=== PATIENT | female | born 1935 | race African-American/Black ===

== ENCOUNTER 2016-06-06 10:59 | Emergency (ER) | payer MEDICARE, OTHER ==
[~2016-06-06] VITALS: Ht 157.5 cm; Wt 63.5 kg
[~2016-06-06 10:59] MED LIST changes: -EPIN1INJ21 IV PUSH; -EPIN1INJ21 SQ; -GLYB5TAB3 PO; -PERC5TAB12 PO; -PERC7.5T13 PO; -SOLU250I IV PUSH; -VANC10IN IV; -ZOFR4TAB3 SL
[2016-06-06 11:07] VITALS: BP 173/91; PULSE 91; RESP 15; TEMP 98.2; O2SAT 98
--- NOTE | 2016-06-06 11:51 | PD ---
HPI Chief Complaint: Fall Time Seen by Provider: 11:51 Travel History International Travel<30 days: No Contact w/Intl Traveler<30days: No Traveled to known affect area: No History of Present Illness HPI 80-year-old female presents to the emergency department for evaluation of right forearm pain. Patient had a trip and fall on May 30, striking her forearm. She states that she was fine but her forearm continues to be painful. She denies any limitations range of motion of the hand but states every time she bumps her forearm it hurts. She denies HSP or tightness. No difficulty breathing. She has no other symptoms to report. PFSH Past Medical History Hx Anticoagulant Therapy: Yes (81 MG ASA ) Asthma: Yes Autoimmune Disease: No Blood Disorders: No Anxiety: Yes Depression: Yes Heart Rhythm Problems: No Cancer: No Cardiovascular Problems: Yes High Cholesterol: Yes Chemotherapy: No Chest Pain: No COPD: No Cerebrovascular Accident: No Diabetes: Yes (TYPE 2 ) Diminished Hearing: No Endocrine: No Gastrointestinal Disorders: No GERD: Yes Glaucoma: No Genitourinary: No Headaches: Yes Hepatitis: No Hiatal Hernia: No Hypertension: Yes (states takes no medication) Immune Disorder: No Implanted Vascular Access Dvce: No Musculoskeletal: No Neurologic: No Psychiatric: No Reproductive: No Respiratory: Yes (Asthma) Migraines: No Seizures: No Sleep Apnea: No Thyroid Disease: No ?: Not Menopausal: Yes : 6 Para: 6 Miscarriage: 0 : 0 Past Surgical History Abdominal Surgery: Yes Cardiac Surgery: No Cholecystectomy: Yes Ear Surgery: No Endocrine Surgery: No Eye Surgery: No Genitourinary Surgery: No Gynecologic Surgery: No Hysterectomy: Yes Neurologic Surgery: No Oral Surgery: Yes (TONSILLECTOMY) Thoracic Surgery: No Tonsillectomy: Yes Other Surgery: Yes (GASTRIC BYPASS? bilat great toe nails removed) Social History Alcohol Use: No Tobacco Use: No Substance Use: No Allergies-Medications (Allergen,Severity, Reaction): Coded Allergies: Darvocet-N 100 (Verified Allergy, Severe, Rash, 06/06/16) rash Demerol (Verified Allergy, Severe, Anaphylaxis, 06/06/16) anaphylactic shock Ibuprofen (Verified Allergy, Severe, Swelling, 06/06/16) Morphine (Verified Allergy, Severe, Rash, 06/06/16) Motrin (Verified Allergy, Severe, Rash, 06/06/16) rash Tylenol #3 (Verified Allergy, Severe, Rash, 05/06/16) causes rash Vibramycin (Verified Allergy, Severe, Rash, 06/06/16) rash Reported Meds & Prescriptions Reported Meds & Active Scripts Active Protonix (Pantoprazole Sodium) 40 Mg Tab 40 Mg PO DAILY Reported Aspirin 81 Mg Chew 81 Mg CHEW DAILY Clonazepam 0.5 Mg Tab 0.5 Mg PO HS Sertraline (Sertraline HCl) 25 Mg Tab 25 Mg PO DAILY Hydroxyzine HCl 25 Mg Tab 25 Mg PO TID PRN Plavix (Clopidogrel Bisulfate) 75 Mg Tab 75 Mg PO DAILY Senna (Sennosides) 8.6 Mg Tab 8.6 Mg PO HS Novolog Inj (Insulin Aspart) 1,000 Unit/10 Ml Vial 0 SQ DIRECTED Sliding Scale as directed. Metformin (Metformin HCl) 500 Mg Tab 500 Mg PO DAILY With a meal Meclizine (Meclizine HCl) 25 Mg Tab 25 Mg PO BID PRN Gabapentin 600 Mg Tab 600 Mg PO TID Lipitor (Atorvastatin Calcium) 40 Mg Tab 40 Mg PO HS Ferrous Sulfate 325 Mg Tab 325 Mg PO DAILY Review of Systems Except as stated in HPI: all other systems reviewed are Neg Physical Exam Narrative GENERAL: Well-nourished, well-developed female patient, in no acute distress SKIN: Warm and dry. 8 cm x 2 cm area of ecchymosis with an adjacent abrasion on the posterior right forearm. No deformity. No crepitus with palpation. HEAD: Normocephalic. EYES: No scleral icterus. No injection or drainage. NECK: Supple, trachea midline. No JVD or lymphadenopathy. CARDIOVASCULAR: Regular rate and rhythm without murmurs, gallops, or rubs. RESPIRATORY: Breath sounds equal bilaterally. No accessory muscle use. MUSCULOSKELETAL: No cyanosis, or edema. Patient has full flexion-extension of the wrist and digits of the affected hand. Sensation intact distal affected extremity. No deformities. There is mild swelling of the posterior right elbow. Tenderness is elicited to palpation over this area. Data Data Last Documented VS Vital Signs Date Time Temp Pulse Resp B/P Pulse Ox O2 Delivery O2 Flow Rate FiO2 06/06/16 11:07 98.2 91 15 173/91 98 Orders Forearm (2vws) (06/06/16 ) Elbow, Complete (4 Vws) (06/06/16 ) Splint Or Brace Apply/Monitor (06/06/16 12:42) Sling Cradle Arm (06/06/16 ) MDM Medical Decision Making Medical Screen Exam Complete: Yes Emergency Medical Condition: Yes Medical Record Reviewed: Yes Differential Diagnosis Contusion versus fracture versus sprain versus abrasion Narrative Course 80-year-old female presents to emergency department for evaluation a right forearm pain. X-ray imaging of the forearm and elbow are without acute bony abnormality. Patient is provided a sling for support and encouraged follow-up with primary care provider. She agrees to return immediately with any acute worsening symptoms. Diagnosis Primary Impression: CONTUSION OF RIGHT FOREARM, INITIAL ENCOUNTER Referrals: Primary Care Physician Patient Instructions: Contusion in Adults (ED), General Instructions Additional Instructions: Ice to the affected area Sling for support Follow-up with primary care provider Seek orthopedic evaluation if symptoms persist Pain medication as already prescribed as needed for pain Return immediately with any acute worsening of symptoms Med/Other Pt SpecificInfo: No Change to Meds Disposition: 01 DISCHARGE HOME Condition: Stable Cherise Stuart Jun 06, 2016 11:51
--- NOTE | 2016-06-06 13:19 | RADRPT ---
EXAM DATE/TIME: 06/06/2016 12:42 [facility] COMPARISON: No previous studies available for comparison. INDICATIONS : Right forearm pain and swelling, fall. MEDICAL HISTORY : None. SURGICAL HISTORY : None. ENCOUNTER: Initial ACUITY: 1 week PAIN SCORE: 10/10 LOCATION: Right posterior forearm FINDINGS: Two view examination of the right forearm demonstrates no evidence of fracture or dislocation. Bony mineralization is normal. Degenerative changes are present in the carpus. The soft tissue structure s are intact. CONCLUSION: Negative for fracture or dislocation. Followup in 7-10 days is suggested if symptoms persist. Fidencio Grider MD FACR on June 06, 2016 at 13:18 Board Certified Radiologist. This report was verified electronically.
--- NOTE | 2016-06-06 13:21 | RADRPT ---
EXAM DATE/TIME: 06/06/2016 12:44 [facility] COMPARISON: ELBOW RIGHT COMPLETE (4 VWS), June 27, 2013, 11:48. INDICATIONS : Right elbow pain and swelling, fall. MEDICAL HISTORY : None. SURGICAL HISTORY : None. ENCOUNTER: Initial ACUITY: 1 week PAIN SCORE: 10/10 LOCATION: Right posterior elbow FINDINGS: Multiple view examination of the right elbow demonstrates no soft tissue swelling, joint effusion, or fracture. The osseous structures are in normal alignment. Bony mineralization is normal. CONCLUSION: Negative for fracture or dislocation. Followup in 7-10 days is suggested if symptoms persist. Fidencio Grider MD FACR on June 06, 2016 at 13:18 Board Certified Radiologist. This report was verified electronically.
== END 2016-06-06 13:55 | disposition home or self-care (01) ==
LOC: NETRI 10:59
DX: S50.11XA Contusion of right forearm, initial encounter (principal); E78.00 Pure hypercholesterolemia, unspecified; E11.9 Type 2 diabetes mellitus without complications; I10 Essential (primary) hypertension; Z79.4 Long term (current) use of insulin; Z79.02 Long term (current) use of antithrombotics/antiplatelets; Z79.899 Other long term (current) drug therapy
CPT/HCPCS: 36415; 73080; 73090; 80076; 99283

== ENCOUNTER → 2016-06-06 | Outpatient (CLI) | payer MEDICARE, OTHER ==
[~2016-06-06] MED LIST: ASPI81CH CHEW; CLON0.5T PO; EPIN1INJ21 IV PUSH; EPIN1INJ21 SQ; FERR325T PO; GABA600T PO; GLYB5TAB3 PO; HYDR-3133 PO; LIPI40TA PO; MECL-62 PO; METF500T PO; NOVOLOGP2 SQ; PERC5TAB12 PO; PERC7.5T13 PO; PLAV75TA29 PO; PROT40TA PO; SENN8.6T5 PO; SERT25TA83 PO; SOLU250I IV PUSH; VANC10IN IV; ZOFR4TAB3 SL
[2016-06-06 14:51] LABS: ALKALINE PHOSPHATASE 109 U/L (45-117); ALT (GPT) 37 U/L (10-53); AST (GOT) 30 U/L (15-37); INDIRECT BILIRUBIN 0.2 MG/DL (0.0-0.8); TOTAL BILIRUBIN ADULT 0.3 MG/DL (0.2-1.0)
== END ==
LOC: CLAB 13:51
DX: Z79.899 Other long term (current) drug therapy (principal)
CPT/HCPCS: 36415; 80076

== ENCOUNTER 2016-08-09 20:31 | Emergency (ER) | payer MEDICARE, OTHER ==
[~2016-08-09] VITALS: Ht 157.5 cm; Wt 65.0 kg
[2016-08-09 20:32] VITALS: BP 172/78; PULSE 114; RESP 18; TEMP 98.5; O2SAT 96
--- NOTE | 2016-08-09 20:38 | PD ---
Physical Exam Date Seen by Provider: Aug 09, 2016 Time Seen by Provider: 20:37 Narrative 80 YOBF 5 DAYS N/V, ABDOMINAL PAIN,COUGH CONGESTION. DECREASED APPETITE VS NOTED AWAITING BED PLACEMENT Data Data Last Documented VS Vital Signs Date Time Temp Pulse Resp B/P Pulse Ox O2 Delivery O2 Flow Rate FiO2 08/09/16 20:32 98.5 114 18 172/78 96 Room Air [facility] Medical Record Reviewed: Yes Supervised Visit with IRIS: Yes [place] Aug 09, 2016 20:38
[2016-08-09] MEDS ORDERED: GLYB5TAB3 PO (22:31)
[2016-08-09] MEDS ORDERED: SODIUM CHLORIDE 0.9% FLUSH 10 ML FLUSH IV FLUSH PRN (22:45)
[2016-08-09] MEDS ORDERED: SODIUM CHLORID 0.9% 500 ML INJ 500 ML IV ONE (22:45)
[2016-08-09] MEDS ORDERED: ONDANSETRON HCL 4 MG/2 ML VIAL IVP ONE (22:45)
[2016-08-09 22:48] LABS: BLOOD, URINE NEG (NEG); GLUCOSE,URINE 1000 mg/dL (NEG); KETONE, URINE NEG (NEG); NITRITE,URINE NEG (NEG); PH, URINE 5.5 (5.0-8.5); SQUAMOUS EPITHELIAL CELL URINE <1 /hpf (0-5); URINE COLOR YELLOW (YELLW/STRAW)
[2016-08-09 22:54] LABS: COMMENT (UR) CULT NOT INDICATED; CULTURE IF INDICATED CULT NOT INDICATED
[2016-08-09 23:17] VITALS: RESP 18; O2SAT 97
[2016-08-09 23:18] VITALS: BP 180/82; PULSE 95; RESP 18; O2SAT 96
[2016-08-09 23:22] LABS: AUTOMATED NEUTROPHIL # 2.4 TH/MM3 (1.8-7.7); BASOPHIL % 0.9 % (0.0-2.0); EOSINOPHIL # 0.1 TH/MM3 (0-0.4); EOSINOPHIL % 2.7 % (0.0-4.0); HEMATOCRIT 38.2 % (35.0-46.0); HEMO FLAGS DIFF FINAL; LYMPH % 36.3 % (9.0-44.0); LYMPHOCYTE # 1.7 TH/MM3 (1.0-4.8); MEAN CELL VOLUME 84.3 FL (80.0-100.0); MEAN CORPUSCULAR HEMOGLOBIN 27.7 PG (27.0-34.0); MEAN CORPUSCULAR HGB CONC 32.9 % (32.0-36.0); MONO % 9.1 % (0.0-8.0); PLATELET COUNT 254 TH/MM3 (150-450); RED BLOOD COUNT 4.53 MIL/MM3 (4.00-5.30); RED CELL DISTRIBUTION WIDTH 14.1 % (11.6-17.2); WHITE BLOOD COUNT 4.7 TH/MM3 (4.0-11.0)
--- NOTE | 2016-08-09 23:35 | RADRPT ---
EXAM DATE/TIME: 08/09/2016 22:55 [facility] COMPARISON: CHEST SINGLE AP, May 06, 2016, 17:41. INDICATIONS : Cough. Chest pain. MEDICAL HISTORY : Hypercholesterolemia. Hypertension. Gastroesophageal reflux disease. SURGICAL HISTORY : CABG. ENCOUNTER: Initial ACUITY: 1 day PAIN SCORE: 0/10 LOCATION: Bilateral chest FINDINGS: A single portable frontal view the chest shows low lung volumes. Chronic elevation of the right hemid iaphragm. No infiltrate or effusion. Median sternotomy wires and coronary markers. Heart is normal in size. CONCLUSION: Low lung volumes. No acute cardiopulmonary disease. Ran Killian Jr., MD on August 09, 2016 at 23:32 Board Certified Radiologist. This report was verified electronically.
[2016-08-09 23:47] LABS: ALKALINE PHOSPHATASE 114 U/L (45-117); TOTAL BILIRUBIN ADULT 0.3 MG/DL (0.2-1.0)
[2016-08-09 23:50] LABS: ALT (GPT) 34 U/L (10-53); AST (GOT) 48 U/L (15-37); BICARBONATE 30.3 MEQ/L (21.0-32.0); BLOOD UREA NITROGEN 11 MG/DL (7-18); CHLORIDE 102 MEQ/L (98-107); GLOMERULAR FILTRATION RATE 95 ML/MIN (>89); SODIUM (NA) 140 MEQ/L (136-145)
[2016-08-09 23:51] LABS: ANION GAP 8 MEQ/L (5-15)
[2016-08-10 00:02] LABS: POTASSIUM 4.8 MEQ/L (3.5-5.1)
[2016-08-10] MEDS ORDERED: ACETAMINOPHEN/HYDROcodone 325 MG/5 MG TAB PO ONE (02:00)
[2016-08-10 02:03] VITALS: BP 166/72; PULSE 82; RESP 16; O2SAT 97
[2016-08-10 03:08] VITALS: RESP 16
--- NOTE | 2016-08-10 03:32 | PD ---
HPI Chief Complaint: Abdominal Pain Time Seen by Provider: 22:47 Travel History International Travel<30 days: No Contact w/Intl Traveler<30days: No Traveled to known affect area: No History of Present Illness HPI The patient is a 80 year old female who presents to the [facility] emergency department with a history of reportedly not feeling well for the last 5 days. She reports that she currently lives in a condo that had her commode overflow and back up 10 days ago. She reports that she felt a burning sensation in her airways and nausea related to the odor of stool in her condo. She reports that she then began to have vomiting. She reports that she's vomited 4 times in the last 24 hours. She denies having any diarrhea. Her last bowel movement was reportedly yesterday. She denies having any blood in her emesis or blood in her stool. The patient additionally reports that over the last 10 days she's had a cough that is been productive of yellow sputum. Her primary care physician placed her on antibiotic for this. The patient reports that this is triggered an asthma exacerbation. The patient reports that her toilet has been fixed within the last few days. She reports that she is using her inhaler as recommended which is helping. The patient denies any recent fevers, neck pain, chest pain, abdominal pain, urinary symptoms, or neurologic symptoms. [facility] Past Medical History Narrative Medical The patient's past medical history is significant for chronic pain in her joints and back, history of coronary artery bypass grafting last year related to coronary artery disease, 3 vessels were bypassed, history of diabetes mellitus, history of hyperlipidemia, hypertension, depression, acid reflux, anxiety disorder Hx Anticoagulant Therapy: Yes (81 MG ASA ) Asthma: Yes Autoimmune Disease: No Blood Disorders: No Anxiety: Yes Depression: Yes Heart Rhythm Problems: No Cancer: No Cardiovascular Problems: Yes (CABG) High Cholesterol: Yes Chemotherapy: No Chest Pain: No COPD: No Cerebrovascular Accident: No Diabetes: Yes Patient Takes Glucophage: No Diminished Hearing: No Endocrine: No Gastrointestinal Disorders: No GERD: Yes Glaucoma: No Genitourinary: No Headaches: Yes Hepatitis: No Hiatal Hernia: No Hypertension: Yes (states takes no medication) Immune Disorder: No Implanted Vascular Access Dvce: No Medical other: Yes (reflux) Musculoskeletal: No Neurologic: No Psychiatric: No Reproductive: No Respiratory: Yes (ASTHMA) Migraines: No Seizures: No Sleep Apnea: No Thyroid Disease: No Tetanus Vaccination: < 5 Years Menopausal: Yes : 6 Para: 6 Miscarriage: 0 : 0 Past Surgical History Narrative Surgical The patient's past surgical history is significant for tonsillectomy, 6 prior right hand surgeries, cholecystectomy, tonsillectomy, hysterectomy, coronary artery bypass grafting of 3 vessels in January 2016. Abdominal Surgery: Yes Cardiac Surgery: No Cholecystectomy: Yes Ear Surgery: No Endocrine Surgery: No Eye Surgery: No Genitourinary Surgery: No Gynecologic Surgery: No Hysterectomy: Yes Neurologic Surgery: No Oral Surgery: Yes (TONSILLECTOMY) Thoracic Surgery: No Tonsillectomy: Yes Other Surgery: Yes (GASTRIC BYPASS? bilat great toe nails removed) Social History Alcohol Use: No Tobacco Use: No Substance Use: No Allergies-Medications (Allergen,Severity, Reaction): Coded Allergies: Darvocet-N 100 (Verified Allergy, Severe, Rash, 06/06/16) rash Demerol (Verified Allergy, Severe, Anaphylaxis, 06/06/16) anaphylactic shock Ibuprofen (Verified Allergy, Severe, Swelling, 06/06/16) Morphine (Verified Allergy, Severe, Rash, 06/06/16) Motrin (Verified Allergy, Severe, Rash, 06/06/16) rash Tylenol #3 (Verified Allergy, Severe, Rash, 05/06/16) causes rash Vibramycin (Verified Allergy, Severe, Rash, 06/06/16) rash Reported Meds & Prescriptions Reported Meds & Active Scripts Active Zofran Odt (Ondansetron Odt) 4 Mg Tab 4 Mg SL Q6HR PRN Protonix (Pantoprazole Sodium) 40 Mg Tab 40 Mg PO DAILY Reported Glyburide 5 Mg Tab 5 Mg PO DAILY Take with meals at the same time each day Aspirin 81 Mg Chew 81 Mg CHEW DAILY Clonazepam 0.5 Mg Tab 0.5 Mg PO HS Sertraline (Sertraline HCl) 25 Mg Tab 25 Mg PO DAILY Hydroxyzine HCl 25 Mg Tab 25 Mg PO TID PRN Plavix (Clopidogrel Bisulfate) 75 Mg Tab 75 Mg PO DAILY Senna (Sennosides) 8.6 Mg Tab 8.6 Mg PO HS Meclizine (Meclizine HCl) 25 Mg Tab 25 Mg PO BID PRN Gabapentin 600 Mg Tab 600 Mg PO TID Lipitor (Atorvastatin Calcium) 40 Mg Tab 40 Mg PO HS Ferrous Sulfate 325 Mg Tab 325 Mg PO DAILY Review of Systems General / Constitutional: No: Fever Eyes: No: Visual changes HENT: Positive: Rhinorrhea, Congestion, No: Headaches Cardiovascular: Positive: Dyspnea on exertion, No: Chest Pain or Discomfort Respiratory: Positive: Cough, Wheezing, No: Shortness of Breath Gastrointestinal: Positive: Nausea, Vomiting, No: Diarrhea, Abdominal Pain, Changes in Bowel Habits, Indigestion, Loss of Appetite Genitourinary: No: Dysuria Musculoskeletal: No: Pain Skin: No Rash Neurologic: No: Weakness Psychiatric: No: Depression Endocrine: No: Polydipsia Hematologic/Lymphatic: No: Easy Bruising Physical Exam Narrative General: The patient is a well-developed well-nourished female in no acute distress. Head and Neck exam: Head is normocephalic atraumatic. Eyes: EOMI, pupils are equal round and reactive to light. Nose: Midline septum with pink mucous membranes Mouth: Dentition unremarkable. Moist mucus membranes. Posterior oropharynx is not erythematous. No tonsillar hypertrophy. Uvula midline. Airway patent. Neck: No palpable lymphadenopathy. No nuchal rigidity. No thyromegaly. Cardiovascular: Regular rate and rhythm without murmurs, gallops, or rubs. No pulse deficit to the extremities. Lungs: Clear to auscultation bilaterally. No wheezes, rhonchi, or rales. Abdomen: Soft, without tenderness to palpation in all 4 quadrants of the abdomen. No guarding, rebound, or rigidity. Normal bowel sounds are audible. No tenderness on palpation of McBurney's point. Negative Cali's sign. Extremities: No clubbing, cyanosis, or edema. 2+ pulses in all 4 extremities. No calf tenderness on palpation. Back: No spinous process tenderness to palpation. No costovertebral angle tenderness to palpation. Neurologic Exam: Grossly nonfocal. Skin Exam: No rash noted. Intact skin that is warm and dry. Data Data Last Documented VS Vital Signs Date Time Temp Pulse Resp B/P Pulse Ox O2 Delivery O2 Flow Rate FiO2 08/10/16 03:50 98.3 71 16 156/72 99 08/10/16 02:03 Room Air Orders Urinalysis - C+S If Indicated (08/09/16 22:15) Complete Blood Count With Diff (08/09/16 22:43) Comprehensive Metabolic Panel (08/09/16 22:43) Lipase (08/09/16 22:43) Iv Access Insert/Monitor (08/09/16 22:43) Ecg Monitoring (08/09/16 22:43) Oximetry (08/09/16 22:43) Ondansetron Inj (Zofran Inj) (08/09/16 22:45) Sodium Chloride 0.9% Flush (Ns Flush) (08/09/16 22:45) Sodium Chlorid 0.9% 500 Ml Inj (Ns 500 M (08/09/16 22:45) Chest, Single Ap (08/09/16 22:48) Acetamin-Hydrocod 325-5 Mg ([place] 5-325 (08/10/16 02:00) Labs Laboratory Tests Test 08/09/16 08/09/16 22:16 23:10 Urine Color YELLOW Urine Turbidity CLEAR Urine pH 5.5 Urine Specific [place] 1.033 Urine Protein NEG mg/dL Urine Glucose (UA) 1000 mg/dL Urine Ketones NEG mg/dL Urine Occult Blood NEG Urine Nitrite NEG Urine Bilirubin NEG Urine Urobilinogen LESS THAN 2.0 MG/DL Urine Leukocyte Esterase NEG Urine RBC 1 /hpf Urine WBC 1 /hpf Urine Squamous Epithelial <1 /hpf Cells Microscopic Urinalysis Comment CULT NOT INDICATED White Blood Count 4.7 TH/MM3 Red Blood Count 4.53 MIL/MM3 Hemoglobin 12.6 GM/DL Hematocrit 38.2 % Mean Corpuscular Volume 84.3 FL Mean Corpuscular Hemoglobin 27.7 PG Mean Corpuscular Hemoglobin 32.9 % Concent Red Cell Distribution Width 14.1 % Platelet Count 254 TH/MM3 Mean Platelet Volume 8.5 FL Neutrophils (%) (Auto) 51.0 % Lymphocytes (%) (Auto) 36.3 % Monocytes (%) (Auto) 9.1 % Eosinophils (%) (Auto) 2.7 % Basophils (%) (Auto) 0.9 % Neutrophils # (Auto) 2.4 TH/MM3 Lymphocytes # (Auto) 1.7 TH/MM3 Monocytes # (Auto) 0.4 TH/MM3 Eosinophils # (Auto) 0.1 TH/MM3 Basophils # (Auto) 0.0 TH/MM3 CBC Comment DIFF FINAL Differential Comment Sodium Level 140 MEQ/L Potassium Level 4.8 MEQ/L Chloride Level 102 MEQ/L Carbon Dioxide Level 30.3 MEQ/L Anion Gap 8 MEQ/L Blood Urea Nitrogen 11 MG/DL Creatinine 0.72 MG/DL Estimat Glomerular Filtration 95 ML/MIN Rate Random Glucose 341 MG/DL Calcium Level 10.1 MG/DL Total Bilirubin 0.3 MG/DL Aspartate Amino Transf 48 U/L (AST/SGOT) Alanine Aminotransferase 34 U/L (ALT/SGPT) Alkaline Phosphatase 114 U/L Total Protein 7.4 GM/DL Albumin 3.4 GM/DL Lipase 101 U/L [facility] Medical Decision Making Medical Screen Exam Complete: Yes Emergency Medical Condition: Yes Medical Record Reviewed: Yes Interpretation(s) Last Impressions Chest X-Ray 08/09/16 2248 Signed Impressions: Service Date/Time: Tuesday, August 09, 2016 22:55 - CONCLUSION: Low lung volumes. No acute cardiopulmonary disease. Ran Killian Jr., MD Differential Diagnosis Gastroenteritis, versus viral syndrome, versus urinary tract infection Narrative Course During the course of the patients emergency department visit, the patients history, examination, and differential diagnosis were reviewed with the patient. The patient had IV access obtained and blood work sent for analysis. The patient was placed on a court monitor with oximetry and blood pressure monitoring. The patient was provided normal saline IV fluids, Zofran for nausea. Lortab for pain. The patient had no episodes of vomiting on the emergency department. The patients laboratory studies were reviewed and remarkable for a white count of 4.7, hemoglobin 12.6, platelets 254 with 9.1 monocytes, CMP is remarkable for a glucose of 341, AST 48, urinalysis shows 1000 glucose. Radiology studies were reviewed and remarkable for a chest x-ray that shows no acute abnormality. The patient will be discharged home with a prescription for Zofran. The patient is instructed to continue on the antibiotic that she was previously prescribed for her bronchitis. Continue nebulizer treatments as needed. The patient's results and examination findings were discussed with the patient. The repeat examination is unremarkable and benign. The history, exam, diagnostic testing, and current condition do not suggest any significant pathology to warrant further testing, continued ED treatment, admission, or surgical evaluation at this point. The vital signs have been stable. The patient does not have uncontrollable pain, intractable vomiting, or other significant symptoms. The patient's condition is stable and appropriate for discharge. The patient will pursue further outpatient evaluation with a primary care physician or other designated or consulting physician as indicated in the discharge instructions. The patient expressed understanding and was agreeable with this plan. Diagnosis Primary Impression: Vomiting Qualified Code: R11.2 - Non-intractable vomiting with nausea, unspecified vomiting type Referrals: Primary Care Physician 2 days Patient Instructions: Acute Nausea and Vomiting (ED), General Instructions Departure Forms: Tests/Procedures Med/Other Pt SpecificInfo: Prescription(s) given Scripts Ondansetron Odt (Zofran Odt)4 Mg Tab4 Mg SL Q6HR PRN (Nausea/Vomiting) #7 TAB Ref 0 Prov:Zully Rios MD 08/10/16 Disposition: 01 DISCHARGE HOME Condition: Stable Zully Rios MD Aug 10, 2016 03:32
[2016-08-10] MEDS ORDERED: ZOFR4TAB3 SL (03:45)
[2016-08-10 03:50] VITALS: BP 156/72; TEMP 98.3
== END 2016-08-10 04:06 | disposition home or self-care (01) ==
LOC: NEPE 20:31
DX: R11.2 Nausea with vomiting, unspecified (principal)
CPT/HCPCS: 71010; 80053; 81001; 83690; 85025; 96361; 96374; 99284; J2405; J7040

== ENCOUNTER 2016-09-27 13:59 | Inpatient (IN) | payer MEDICARE, OTHER ==
[~2016-09-27] VITALS: Ht 158.8 cm; Wt 64.1 kg
[~2016-09-27 13:59] MED LIST changes: +GLYB5TAB3 PO; -METF500T PO; -NOVOLOGP2 SQ; +ZOFR4TAB3 SL
[2016-09-27 14:01] VITALS: BP 137/87; PULSE 98; RESP 16; TEMP 98.2; O2SAT 98
[2016-09-27] MEDS ORDERED: CLINDAMYCIN INJ 600 MG in SODIUM CHLORIDE 0.9% INJ 100 ML IV ONE (15:15)
[2016-09-27] MEDS ORDERED: ACETAMINOPHEN/HYDROcodone 325 MG/5 MG TAB PO ONE (15:15)
--- NOTE | 2016-09-27 15:45 | PD ---
HPI Chief Complaint: Skin Problem Time Seen by Provider: 15:39 Travel History International Travel<30 days: No Contact w/Intl Traveler<30days: No Traveled to known affect area: No History of Present Illness HPI 81-year-old female with a history of diabetes that presents to the ED for evaluation of possible staph infection to her right great toe. Per patient she has been treated for a staph infection on her skin secondary to malfunction of toilet were the toilet apparently clogged and feces material came out of it and it got onto her skin. Per patient her right great toe was part of this skin that was involved with this and apparently she's been having redness and swelling since Monday. Per patient she went to her doctor and the "staph infection on the skin" on the head as well as the arms seems to be getting better but the infection on the right great toe seems to be getting worse and she has drainage since yesterday. Per patient she has a 10 pain in that toe. She does have a history of diabetes. She states compliance with her medications. She does not know what antibiotic she was given. She does have multiple allergies to different medications. She denies any chest pain or shortness of breath. She states having some fevers and chills. She has a email campaign specialist. She has not seen her doctor in the past 2 days for evaluation of the toe. She denies pain anywhere else. PFSH Past Medical History Hx Anticoagulant Therapy: Yes (81 MG ASA ) Asthma: Yes Autoimmune Disease: No Blood Disorders: No Anxiety: Yes Depression: Yes Heart Rhythm Problems: No Cancer: No Cardiovascular Problems: Yes (CABG) High Cholesterol: Yes Chemotherapy: No Chest Pain: No COPD: No Cerebrovascular Accident: No Diabetes: Yes Diminished Hearing: No Endocrine: No Gastrointestinal Disorders: No GERD: Yes Glaucoma: No Genitourinary: No Headaches: Yes Hepatitis: No Hiatal Hernia: No Hypertension: Yes (states takes no medication) Immune Disorder: No Implanted Vascular Access Dvce: No Musculoskeletal: No Neurologic: No Psychiatric: No Reproductive: No Respiratory: Yes (ASTHMA) Migraines: No Seizures: No Sleep Apnea: No Thyroid Disease: No Menopausal: Yes : 6 Para: 6 Miscarriage: 0 : 0 Past Surgical History Abdominal Surgery: Yes Cardiac Surgery: No Cholecystectomy: Yes Ear Surgery: No Endocrine Surgery: No Eye Surgery: No Genitourinary Surgery: No Gynecologic Surgery: No Hysterectomy: Yes Neurologic Surgery: No Oral Surgery: Yes (TONSILLECTOMY) Thoracic Surgery: No Tonsillectomy: Yes Other Surgery: Yes (GASTRIC BYPASS? bilat great toe nails removed) Social History Alcohol Use: No Tobacco Use: No Substance Use: No Allergies-Medications (Allergen,Severity, Reaction): Coded Allergies: Darvocet-N 100 (Verified Allergy, Severe, Rash, 06/06/16) rash Demerol (Verified Allergy, Severe, Anaphylaxis, 06/06/16) anaphylactic shock Ibuprofen (Verified Allergy, Severe, Swelling, 06/06/16) Morphine (Verified Allergy, Severe, Rash, 06/06/16) Motrin (Verified Allergy, Severe, Rash, 06/06/16) rash Tylenol #3 (Verified Allergy, Severe, Rash, 05/06/16) causes rash Vibramycin (Verified Allergy, Severe, Rash, 06/06/16) rash Reported Meds & Prescriptions Reported Meds & Active Scripts Active Zofran Odt (Ondansetron Odt) 4 Mg Tab 4 Mg SL Q6HR PRN Protonix (Pantoprazole Sodium) 40 Mg Tab 40 Mg PO DAILY Reported Glyburide 5 Mg Tab 5 Mg PO DAILY Take with meals at the same time each day Aspirin 81 Mg Chew 81 Mg CHEW DAILY Clonazepam 0.5 Mg Tab 0.5 Mg PO HS Sertraline (Sertraline HCl) 25 Mg Tab 25 Mg PO DAILY Hydroxyzine HCl 25 Mg Tab 25 Mg PO TID PRN Plavix (Clopidogrel Bisulfate) 75 Mg Tab 75 Mg PO DAILY Senna (Sennosides) 8.6 Mg Tab 8.6 Mg PO HS Meclizine (Meclizine HCl) 25 Mg Tab 25 Mg PO BID PRN Gabapentin 600 Mg Tab 600 Mg PO TID Lipitor (Atorvastatin Calcium) 40 Mg Tab 40 Mg PO HS Ferrous Sulfate 325 Mg Tab 325 Mg PO DAILY Review of Systems Except as stated in HPI: all other systems reviewed are Neg Physical Exam Narrative GENERAL: SKIN: Warm and dry. HEAD: Atraumatic. Normocephalic. EYES: Pupils equal and round. No scleral icterus. No injection or drainage. ENT: No nasal bleeding or discharge. Mucous membranes pink and moist. Tongue is midline. No uvula deviation. NECK: Trachea midline. No JVD. CARDIOVASCULAR: Regular rate and rhythm. No murmurs, S3, S4. RESPIRATORY: No accessory muscle use. Clear to auscultation. Breath sounds equal bilaterally. GASTROINTESTINAL: Abdomen soft, non-tender, nondistended. Hepatic and splenic margins not palpable. MUSCULOSKELETAL: Extremities without clubbing, cyanosis, or edema. No obvious deformities. Full range of motion of the upper and lower extremities bilaterally. 2+ pulses bilaterally. Patient has full range of motion of all toes and she does have what appears to be significant purulent material on the plantar aspect of the right great toe. Patient does have erythema that radiates towards the foot. Very tender to touch in this area. Purulent material noted. Good capillary refill. NEUROLOGICAL: Awake and alert. No obvious cranial nerve deficits. Motor grossly within normal limits. Five out of 5 muscle strength in the arms and legs. Normal speech. PSYCHIATRIC: Appropriate mood and affect; insight and judgment normal. Data Data Last Documented VS Vital Signs Date Time Temp Pulse Resp B/P Pulse Ox O2 Delivery O2 Flow Rate FiO2 09/27/16 15:54 83 18 09/27/16 14:01 98.2 137/87 98 Orders Complete Blood Count With Diff (09/27/16 15:08) Basic Metabolic Panel (Bmp) (09/27/16 15:08) Blood Culture (09/27/16 15:08) C-Reactive Protein (Crp) (09/27/16 15:08) Westergren Sedimentation Rate (09/27/16 15:08) Magnesium (Mg) (09/27/16 15:08) Wound Culture And Gram Stain (09/27/16 15:08) Iv Access Insert/Monitor (09/27/16 15:08) Acetamin-Hydrocod 325-5 Mg ([place] 5-325 (09/27/16 15:15) Clindamycin Inj (Cleocin Inj) (09/27/16 15:15) Toe (Min 2vws) (09/27/16 ) Admit Order (Ed Use Only) (09/27/16 16:49) Labs Laboratory Tests Test 09/27/16 15:20 White Blood Count 3.8 TH/MM3 Red Blood Count 4.27 MIL/MM3 Hemoglobin 11.1 GM/DL Hematocrit 36.1 % Mean Corpuscular Volume 84.7 FL Mean Corpuscular Hemoglobin 26.0 PG Mean Corpuscular Hemoglobin 30.7 % Concent Red Cell Distribution Width 12.5 % Platelet Count 251 TH/MM3 Mean Platelet Volume 8.0 FL Neutrophils (%) (Auto) 53.5 % Lymphocytes (%) (Auto) 29.1 % Monocytes (%) (Auto) 14.8 % Eosinophils (%) (Auto) 2.0 % Basophils (%) (Auto) 0.6 % Neutrophils # (Auto) 2.1 TH/MM3 Lymphocytes # (Auto) 1.1 TH/MM3 Monocytes # (Auto) 0.6 TH/MM3 Eosinophils # (Auto) 0.1 TH/MM3 Basophils # (Auto) 0.0 TH/MM3 CBC Comment AUTO DIFF Differential Comment AUTO DIFF CONFIRMED Platelet Estimate NORMAL Platelet Morphology Comment NORMAL Sodium Level 139 MEQ/L Potassium Level 4.3 MEQ/L Chloride Level 102 MEQ/L Carbon Dioxide Level 31.0 MEQ/L Anion Gap 6 MEQ/L Blood Urea Nitrogen 20 MG/DL Creatinine 0.86 MG/DL Estimat Glomerular Filtration 77 ML/MIN Rate Random Glucose 332 MG/DL Calcium Level 9.4 MG/DL Magnesium Level 1.9 MG/DL C-Reactive Protein 9.97 MG/DL MDM Medical Decision Making Medical Screen Exam Complete: Yes Emergency Medical Condition: Yes Medical Record Reviewed: Yes Interpretation(s) CBC & BMP Diagram 09/27/16 15:20 CRp of 9 Last Impressions Toe X-Ray 09/27/16 0000 Signed Impressions: Service Date/Time: Tuesday, September 27, 2016 15:56 - CONCLUSION: Soft tissue swelling of the first digit with soft tissue gas suspicious for infection. The adjacent distal phalanx of the first digit demonstrates no definite findings to indicate osteomyelitis. Specifically, no erosions are seen. Lam Davis MD Differential Diagnosis Osteomyelitis versus foot infection versus abscess versus diabetic ulcer versus cellulitis Narrative Course 81-year-old female that presents to the ED for evaluation of right foot infection. Patient was properly examined and was found to have signs and symptoms consistent with appears to be likely to infection. Labs and imaging ordered. Patient was started on IV clindamycin. Given Lortab for pain. Labs and imaging showed signs of infection. Case discussed in my attending Dr. Eastman who evaluated the patient with me and agrees with plan. Because of patient's history of diabetes recommend admission for IV antibiotics and podiatry consultation. Patient agrees with this plan. She was admitted to Dr. Crystal for agrees to admission. Diagnosis Primary Impression: Cellulitis of toe of right foot Additional Impression: Diabetes Qualified Code: E11.9 - Type 2 diabetes mellitus without complication, with long-term current use of insulin Admitting Information Admitting Physician Requests: Kwasi Vasquez September 27, 2016 15:45
[2016-09-27 15:56] LABS: AUTOMATED NEUTROPHIL # 2.1 TH/MM3 (1.8-7.7); BASOPHIL % 0.6 % (0.0-2.0); EOSINOPHIL # 0.1 TH/MM3 (0-0.4); HEMATOCRIT 36.1 % (35.0-46.0); LYMPH % 29.1 % (9.0-44.0); LYMPHOCYTE # 1.1 TH/MM3 (1.0-4.8); MEAN CELL VOLUME 84.7 FL (80.0-100.0); MEAN CORPUSCULAR HGB CONC 30.7 % (32.0-36.0); MONO % 14.8 % (0.0-8.0); NEUT % 53.5 % (16.0-70.0); PLATELET COUNT 251 TH/MM3 (150-450); RED BLOOD COUNT 4.27 MIL/MM3 (4.00-5.30); RED CELL DISTRIBUTION WIDTH 12.5 % (11.6-17.2); WHITE BLOOD COUNT 3.8 TH/MM3 (4.0-11.0)
[2016-09-27 16:02] LABS: HEMO FLAGS AUTO DIFF
--- NOTE | 2016-09-27 16:21 | RADRPT ---
EXAM DATE/TIME: 09/27/2016 15:56 [facility] COMPARISON: TOE RIGHT 1ST DIGIT(MIN 2VWS), January 23, 2016, 11:45. INDICATIONS : Right foot, first digit pain. Possible infection. MEDICAL HISTORY : Diabetes mellitus type II. SURGICAL HISTORY : None. ENCOUNTER: Initial ACUITY: 3 weeks PAIN SCORE: 10/10 LOCATION: Right foot, first digit. FINDINGS: 3 views of the right foot first digit demonstrate soft tissue swelling of the distal aspect of the fo ot with soft tissue gas. The adjacent distal phalanx demonstrates no definite erosion or reactive bon e formation. No radiopaque foreign body is seen. Overall, bones are undermineralized. CONCLUSION: Soft tissue swelling of the first digit with soft tissue gas suspicious for infection. The adjacent d istal phalanx of the first digit demonstrates no definite findings to indicate osteomyelitis. Specifi jocelin, no erosions are seen. Lam Davis MD on September 27, 2016 at 16:17 Board Certified Radiologist. This report was verified electronically.
[2016-09-27 16:24] LABS: MAGNESIUM 1.9 MG/DL (1.5-2.5); POTASSIUM 4.3 MEQ/L (3.5-5.1)
[2016-09-27 16:26] LABS: PLATELET ESTIMATE SMEAR NORMAL (NORMAL); PLATELET MORPHOLOGY NORMAL (NORMAL); SCAN/DIFF AUTO DIFF CONFIRMED
--- NOTE | 2016-09-27 16:29 | PD ---
Data Data Last Documented VS Vital Signs Date Time Temp Pulse Resp B/P Pulse Ox O2 Delivery O2 Flow Rate FiO2 09/27/16 15:54 83 18 09/27/16 14:01 98.2 137/87 98 Orders Complete Blood Count With Diff (09/27/16 15:08) Basic Metabolic Panel (Bmp) (09/27/16 15:08) Blood Culture (09/27/16 15:08) C-Reactive Protein (Crp) (09/27/16 15:08) Westergren Sedimentation Rate (09/27/16 15:08) Magnesium (Mg) (09/27/16 15:08) Wound Culture And Gram Stain (09/27/16 15:08) Iv Access Insert/Monitor (09/27/16 15:08) Acetamin-Hydrocod 325-5 Mg ([place] 5-325 (09/27/16 15:15) Clindamycin Inj (Cleocin Inj) (09/27/16 15:15) Toe (Min 2vws) (09/27/16 ) Labs Laboratory Tests Test 09/27/16 15:20 White Blood Count 3.8 TH/MM3 Red Blood Count 4.27 MIL/MM3 Hemoglobin 11.1 GM/DL Hematocrit 36.1 % Mean Corpuscular Volume 84.7 FL Mean Corpuscular Hemoglobin 26.0 PG Mean Corpuscular Hemoglobin 30.7 % Concent Red Cell Distribution Width 12.5 % Platelet Count 251 TH/MM3 Mean Platelet Volume 8.0 FL Neutrophils (%) (Auto) 53.5 % Lymphocytes (%) (Auto) 29.1 % Monocytes (%) (Auto) 14.8 % Eosinophils (%) (Auto) 2.0 % Basophils (%) (Auto) 0.6 % Neutrophils # (Auto) 2.1 TH/MM3 Lymphocytes # (Auto) 1.1 TH/MM3 Monocytes # (Auto) 0.6 TH/MM3 Eosinophils # (Auto) 0.1 TH/MM3 Basophils # (Auto) 0.0 TH/MM3 CBC Comment AUTO DIFF Differential Comment AUTO DIFF CONFIRMED Platelet Estimate NORMAL Platelet Morphology Comment NORMAL Sodium Level 139 MEQ/L Potassium Level 4.3 MEQ/L Chloride Level 102 MEQ/L Carbon Dioxide Level 31.0 MEQ/L Anion Gap 6 MEQ/L Blood Urea Nitrogen 20 MG/DL Creatinine 0.86 MG/DL Estimat Glomerular Filtration 77 ML/MIN Rate Random Glucose 332 MG/DL Calcium Level 9.4 MG/DL Magnesium Level 1.9 MG/DL C-Reactive Protein 9.97 MG/DL MDM Supervised Visit with IRIS: Yes Narrative Course The history, exam, and medical decision-making in the associated mid-level provider note were completed with my assistance. I reviewed and agree with the findings presented. I attest that I had a [id number] encounter with the patient on the same day, and personally performed and documented my assessment and findings in the medical record. *My assessment and Findings: 81 year-old woman with a history diabetes presents with right great toe infection. This is worsening despite outpatient antibiotics. She has areas of obvious necrosis needed debridement. Will do some debridement here in the emergency department. IV antibiotics. She'll be admitted for IV antibiotics, podiatry consultation. Reese Eastman MD September 27, 2016 16:28
[2016-09-27] MEDS ORDERED: PERC7.5T13 PO (16:51)
[2016-09-27] MEDS ORDERED: oxyCODONE/ACETAMINOPHEN 10 MG/325 MG TAB PO ONE (17:00)
--- NOTE | 2016-09-27 17:12 | HHI.HP ---
[facility] Arin Leary MD Admission Diagnosis right great toe cellulitis, diabetic Diagnoses: Chief Complaint: Right Great toe drainage, erythema and pain Travel History International Travel<30 Days: No Contact w/Intl Traveler <30 Da: No Traveled to Known Affected Are: No Sepsis Criteria SIRS Criteria (2 or more): Heart rate over 90, WBC > 75588, < 4000 or > 10% bands Sepsis Criteria (SIRS+source): Infect source susp/known History of Present Illness Written by Melisa Manzano, acting as scribe for Dr. Crystal on 09/27/16 at 17: 24. Patient is an 81 year old female with primary medical history of HTN, DM 2, status post CABG 2016, MRSA infection of the right hand who came into the hospital for evaluation of possible staph infection of her right great toe. Patient states she had a malfunction of her bathroom wherein she turned on her shower in the tub and feces had come out and got into her skin and feet. States she is being treated for a staph infection on her skin - facial/lip area, forehead and scalp- had been improved but have noticed that her right great toe is getting worse, it has been swollen and red for about 3 days. She does not know what antibiotic she was given but has completed it, when she noticed her toe is still not better. Patient lives in an apartment which she states she has been having lots of issues. She has her bilateral toes "poked" with sharp stuff from the carpet. The left toe wound healed but the right toe wound continues to be open before it got "soaked in the tub with feces." States it has a "foul smell" today and more painful. Pain rated 8/10, achy, nonradiating , constant, not aggravated by anything, relieved with pain management. States she also felt her right leg was tight and hurting few days ago, now has subsided. Reports fevers and chills, associated with some nausea without vomiting. Denies chest pain, dizziness, palpitations, headaches. Denies diarrhea, abdominal cramping, dysuria. Denies SOB/ dyspnea. Review of Systems Except as stated in HPI: all other systems reviewed are Neg Past Family Social History Past Medical History Anxiety Depression HLD DM 2 GERD Lumbar stenosis Chronic back pain CVA history MRSA infection of the right hand Past Surgical History Cardiac catheter CABG Tonsillectomy Cholecystectomy Reported Medications Reported Meds & Active Scripts Active Zofran Odt (Ondansetron Odt) 4 Mg Tab 4 Mg SL Q6HR PRN Protonix (Pantoprazole Sodium) 40 Mg Tab 40 Mg PO DAILY Reported Percocet (Oxycodone-Acetaminophen) 7.5-325 mg Tab 1 Tab PO QID Glyburide 5 Mg Tab 5 Mg PO DAILY Take with meals at the same time each day Aspirin 81 Mg Chew 81 Mg CHEW DAILY Clonazepam 0.5 Mg Tab 0.5 Mg PO HS Sertraline (Sertraline HCl) 25 Mg Tab 25 Mg PO DAILY Hydroxyzine HCl 25 Mg Tab 25 Mg PO TID PRN Meclizine (Meclizine HCl) 25 Mg Tab 25 Mg PO BID PRN Gabapentin 600 Mg Tab 600 Mg PO TID Lipitor (Atorvastatin Calcium) 40 Mg Tab 40 Mg PO HS Ferrous Sulfate 325 Mg Tab 325 Mg PO DAILY Allergies: Coded Allergies: Darvocet-N 100 (Verified Allergy, Severe, Rash, 06/06/16) rash Demerol (Verified Allergy, Severe, Anaphylaxis, 06/06/16) anaphylactic shock Ibuprofen (Verified Allergy, Severe, Swelling, 06/06/16) Morphine (Verified Allergy, Severe, Rash, 06/06/16) Motrin (Verified Allergy, Severe, Rash, 06/06/16) rash Tylenol #3 (Verified Allergy, Severe, Rash, 05/06/16) causes rash Vibramycin (Verified Allergy, Severe, Rash, 06/06/16) rash Active Ordered Medications Current Medications Medications (Trade) Dose Ordered Sig/Ifeoma Route Start Time Stop Time Status Last Admin (Aspirin Chew) 81 mg DAILY CHEW 09/28/16 09:00 (Lipitor) 40 mg HS PO 09/27/16 21:00 (KlonoPIN) 0.5 mg HS PO 09/27/16 21:00 (Ferrous Sulfate) 325 mg DAILY PO 09/28/16 09:00 (Neurontin) 600 mg TID PO 09/27/16 18:00 (Atarax) 25 mg TID PRN PO 5/23/17 17:15 (Antivert) 25 mg BID PRN PO 09/27/16 17:15 (Zofran Odt) 4 mg Q6HR PRN SL 09/27/16 17:15 (Percocet 7.5-325 Mg) 1 tab QID PO 09/27/16 18:00 (Protonix) 40 mg DAILY PO 09/28/16 09:00 (Zoloft) 25 mg DAILY PO 09/28/16 09:00 (NS Flush) 2 ml UNSCH PRN IV FLUSH 09/27/16 17:15 (NS Flush) 2 ml BID IV FLUSH 09/27/16 21:00 (Narcan Inj) 0.4 mg UNSCH PRN IV 09/27/16 17:15 (Pill Splitter) 1 ea UNSCH PRN OTHER 09/27/16 17:15 Family History Siblings has DM, parents lived to be in their 100's Social History Denies alcohol use Denies tobacco use Denies Illicit drug use Physical Exam Vital Signs Vital Signs Date Time Temp Pulse Resp B/P Pulse Ox O2 Delivery O2 Flow Rate FiO2 09/27/16 15:54 83 18 09/27/16 14:01 98.2 98 16 137/87 98 Physical Exam GENERAL: This is a well-nourished, well-developed patient, in no apparent distress. SKIN: Lip area dry scales. Warm and dry. Right great toe erythema, edema, purulent drain, malodorous HEAD: Atraumatic. Normocephalic. No temporal or scalp tenderness. EYES: Pupils equal round and reactive. Extraocular motions intact. No scleral icterus. No injection or drainage. ENT: Nose without bleeding. Throat without erythema. Uvula midline. Airway patent. NECK: Trachea midline. No JVD or lymphadenopathy. CARDIOVASCULAR: Regular rate and rhythm without murmurs, gallops, or rubs. RESPIRATORY: Clear to auscultation. Breath sounds equal bilaterally. No wheezes , rales, or rhonchi. GASTROINTESTINAL: Abdomen soft, non-tender, nondistended. BS active x4 MUSCULOSKELETAL: Extremities without clubbing, cyanosis, Bilat Lower Ext no edema. NEUROLOGICAL: Awake and alert. Oriented to person, place, time. Motor and sensory grossly within normal limits. Normal speech. Laboratory Laboratory Tests Test 09/27/16 15:20 White Blood Count 3.8 Red Blood Count 4.27 Hemoglobin 11.1 Hematocrit 36.1 Mean Corpuscular Volume 84.7 Mean Corpuscular Hemoglobin 26.0 Mean Corpuscular Hemoglobin 30.7 Concent Red Cell Distribution Width 12.5 Platelet Count 251 Mean Platelet Volume 8.0 Neutrophils (%) (Auto) 53.5 Lymphocytes (%) (Auto) 29.1 Monocytes (%) (Auto) 14.8 Eosinophils (%) (Auto) 2.0 Basophils (%) (Auto) 0.6 Neutrophils # (Auto) 2.1 Lymphocytes # (Auto) 1.1 Monocytes # (Auto) 0.6 Eosinophils # (Auto) 0.1 Basophils # (Auto) 0.0 CBC Comment AUTO DIFF Differential Comment AUTO DIFF CONFIRMED Platelet Estimate NORMAL Platelet Morphology Comment NORMAL Sodium Level 139 Potassium Level 4.3 Chloride Level 102 Carbon Dioxide Level 31.0 Anion Gap 6 Blood Urea Nitrogen 20 Creatinine 0.86 Estimat Glomerular Filtration 77 Rate Random Glucose 332 Calcium Level 9.4 Magnesium Level 1.9 C-Reactive Protein 9.97 Date/Time Procedure Status Source Growth 09/27/16 15:30 Aerobic Blood Culture Received Blood Peripheral Pending 09/27/16 15:30 Anaerobic Blood Culture Received Blood Peripheral Pending 09/27/16 15:15 Gram Stain Received Wound Toe Pending 09/27/16 15:15 Wound Culture Received Wound Toe Pending Result Diagram: 09/27/16 1520 09/27/16 1520 Imaging Last Impressions Toe X-Ray 09/27/16 0000 Signed Impressions: Service Date/Time: Tuesday, September 27, 2016 15:56 - CONCLUSION: Soft tissue swelling of the first digit with soft tissue gas suspicious for infection. The adjacent distal phalanx of the first digit demonstrates no definite findings to indicate osteomyelitis. Specifically, no erosions are seen. Lam Davis MD Assessment and Plan Problem List: (1) S/P CABG x 3 ICD Code: Z95.1 Status: Acute (2) Cellulitis of toe of right foot ICD Code: L03.031 Status: Acute (3) Diabetes ICD Code: E11.9 Status: Acute (4) GERD (gastroesophageal reflux disease) ICD Code: K21.9 Status: Chronic (5) Hypertension ICD Code: I10 Status: Chronic (6) Hyperlipidemia ICD Code: E78.5 Status: Chronic (7) Chronic back pain ICD Code: M54.9 Status: Chronic (8) Sepsis affecting skin ICD Code: L02.91 Status: Acute Assessment and Plan Patient is an 81 year old female with primary medical history of HTN, DM 2, status post CABG 2016, MRSA infection of the right hand who came into the hospital for evaluation of possible staph infection of her right great toe. Sepsis, SIRS: WBC 3.8, HR 98 Cellulitis Right Great Toe - Toe x-ray showed soft tissue swelling of the first digit with soft tissue gas suspicious for infection. The adjacent distal phalanx of the first digit demonstrates no definite findings to indicate osteomyelitis. Specifically, no erosions are seen - CRP 9.97 - Patient received clindamycin in the ED, Start IV antibiotic VAnco/ Zosyn - Pain management with Percocet PO - Wound Cultures, Blood Cultures follow up result - Podiatry consult, needing abscess drainage. Malodorous, purulent drainage. - Wound care consult - mupirocin cream - Repeat labs in AM CBC, BMP Hx CABG x3 HTN HLD - Continue home meds atorvastatin 40mg daily, ASA 81mg daily, - Monitor BP trend GERD - Pantoprazole daily DM2, unspecified control - Last HgA1C 02/08/16 - 13.0 - Insulin SS - Accuchecks. Monitor for hypoglycemia - Check HgA1C Neuropathy - Continue gabapentin 600mg TID Anxiety - Continue home meds clonazepam, zoloft DVT prop SCD This note was transcribed by aamir [Melisa Manzano]. I, Dr. Can Crystal personally performed the history, physical exam, and medical decision making; and confirmed the accuracy of the information in the transcribed note. Authenticated by Dr. Can Crystal on 09/27/16 at 19:34. Code Status Full Code Discussed Condition With Patient, family, nurse, and ED Attending Physician Certification 2 Midnight Certification Type: Admission for Inpatient Services Order for Inpatient Services The services are ordered in accordance with Medicare regulations or non- Medicare payer requirements, as applicable. In the case of services not specified as inpatient-only, they are appropriately provided as inpatient services in accordance with the 2-midnight benchmark. Estimated LOS (days): 2 days is the estimated time the patient will need to remain in the hospital, assuming treatment plan goals are met and no additional complications. Post-Hospital Plan: Home Problem Qualifiers (1) Diabetes: Qualified Code: E11.9 - Type 2 diabetes mellitus without complication, with long-term current use of insulin (2) GERD (gastroesophageal reflux disease): Qualified Code: K21.9 - Gastroesophageal reflux disease without esophagitis (3) Hypertension: Qualified Code: I10 - Essential hypertension (4) Hyperlipidemia: Qualified Code: E78.2 - Mixed hyperlipidemia (5) Chronic back pain: Melisa Cotton September 27, 2016 17:12 Can Crystal MD September 27, 2016 19:34
[2016-09-27] MEDS ORDERED: MECLIZINE HCL 25 MG TAB PO PRN (17:15)
[2016-09-27] MEDS ORDERED: PILL SPLITTER OTHER PRN (17:15)
[2016-09-27] MEDS ORDERED: SODIUM CHLORIDE 0.9% FLUSH 10 ML FLUSH IV FLUSH PRN (17:15)
[2016-09-27] MEDS ORDERED: NALOXONE HCL 0.4 MG/ML AMP IV PRN (17:15)
[2016-09-27] MEDS ORDERED: ONDANSETRON ODT 4 MG TAB SL PRN (17:15)
[2016-09-27] MEDS: oxyCODONE/ACETAMINOPHEN 7.5 MG/325 MG TAB PO SCH ×2 (17:19→20:04)
[2016-09-27] MEDS: GABAPENTIN 300 MG CAP PO SCH (17:20)
[2016-09-27 18:00] VITALS: BP 134/78; PULSE 88; RESP 18; O2SAT 99
[2016-09-27] MEDS ORDERED: GLUCAGON 1 MG/ML VIAL OTHER PRN (18:15)
[2016-09-27] MEDS ORDERED: DEXTROSE 50% IN WATER 50 ML VIAL(D50) IV PRN (18:15)
[2016-09-27] MEDS ORDERED: Vancomycin Consult Pharmacy 1 EA OTHER SCH (18:15)
[2016-09-27] MEDS: ATORVASTATIN 40 MG TAB PO SCH (20:04)
[2016-09-27] MEDS: clonazePAM 0.5 MG TAB PO SCH (20:04)
[2016-09-27] MEDS: SODIUM CHLORIDE 0.9% FLUSH 10 ML FLUSH IV FLUSH SCH (20:05)
[2016-09-27] MEDS: VANCOMYCIN INJ 1,000 MG in SODIUM CHLOR 0.9% 250 ML INJ 250 ML IV SCH (20:05)
[2016-09-27] MEDS: PIPERACIL-TAZO 3.375 GM PREMIX 50 ML IV SCH (20:12)
[2016-09-27 20:40] VITALS: BP 117/63; PULSE 73; RESP 16; TEMP 98.2; O2SAT 96
[2016-09-27] MEDS: INSULIN ASPART SUPPLEMENTAL SCALE SQ SCH (20:51)
[2016-09-27 22:20] LABS: HEMOGLOBIN A1a 1.2 %; HEMOGLOBIN A1b 1.1 %; HEMOGLOBIN Ao 73.1 %; HEMOGLOBIN F 1.9 %; HEMOGLOBIN LA1C 3.8 %; HEMOGLOBIN P3 5.2 %
[2016-09-28] VITALS (7 sets, daily range): BP systolic 98–127; BP diastolic 52–69; PULSE 66–72; RESP 18; TEMP 96.3–98.7; O2SAT 94–95
[2016-09-28] MEDS: PIPERACIL-TAZO 3.375 GM PREMIX 50 ML IV SCH ×4 (01:24→18:44)
[2016-09-28] MEDS: hydrOXYzine HCL 25 MG TAB PO PRN ×2 (02:34→11:17)
[2016-09-28] MEDS: oxyCODONE/ACETAMINOPHEN 7.5 MG/325 MG TAB PO PRN ×3 (04:35→16:22)
[2016-09-28] MEDS: INSULIN ASPART SUPPLEMENTAL SCALE SQ SCH ×4 (06:30→21:41)
[2016-09-28 07:44] LABS: BASOPHIL % 0.1 % (0.0-2.0); EOSINOPHIL # 0.1 TH/MM3 (0-0.4); EOSINOPHIL % 4.9 % (0.0-4.0); HEMATOCRIT 33.4 % (35.0-46.0); LYMPH % 10.4 % (9.0-44.0); LYMPHOCYTE # 0.3 TH/MM3 (1.0-4.8); MEAN CELL VOLUME 83.1 FL (80.0-100.0); MEAN CORPUSCULAR HEMOGLOBIN 26.9 PG (27.0-34.0); MEAN CORPUSCULAR HGB CONC 32.4 % (32.0-36.0); MONO % 10.4 % (0.0-8.0); NEUT % 74.2 % (16.0-70.0); PLATELET COUNT 238 TH/MM3 (150-450); RED BLOOD COUNT 4.02 MIL/MM3 (4.00-5.30); RED CELL DISTRIBUTION WIDTH 12.7 % (11.6-17.2); WHITE BLOOD COUNT 2.7 TH/MM3 (4.0-11.0)
[2016-09-28 07:45] LABS: HEMO FLAGS AUTO DIFF
--- NOTE | 2016-09-28 07:52 | PD.CONS ---
History of Present Illness Service Podiatry Consult Requested By Reason for Consult Right hallux infection Primary Care Physician Arin Leary MD Diagnoses: History of Present Illness 81 year old female presents with right hallux infection x 3 days. Pt is Diabetic with neuropathy. She is well known to me for routine nail care in office. Today toe shows signs of necrosis, no pain, no acute distress Past Family Social History Allergies: Coded Allergies: Darvocet-N 100 (Verified Allergy, Severe, Rash, 06/06/16) rash Demerol (Verified Allergy, Severe, Anaphylaxis, 06/06/16) anaphylactic shock Ibuprofen (Verified Allergy, Severe, Swelling, 06/06/16) Morphine (Verified Allergy, Severe, Rash, 06/06/16) Motrin (Verified Allergy, Severe, Rash, 06/06/16) rash Tylenol #3 (Verified Allergy, Severe, Rash, 05/06/16) causes rash Vibramycin (Verified Allergy, Severe, Rash, 06/06/16) rash Physical Exam Vital Signs Vital Signs Date Time Temp Pulse Resp B/P Pulse Ox O2 Delivery O2 Flow Rate FiO2 09/28/16 04:00 97.5 69 18 115/56 94 09/28/16 02:19 70 98/52 Automatic Cuff 09/28/16 00:05 96.3 68 18 99/54 94 09/27/16 20:40 98.2 73 16 117/63 96 09/27/16 20:00 Room Air 09/27/16 18:00 88 18 134/78 99 Room Air 09/27/16 15:54 83 18 09/27/16 14:01 98.2 98 16 137/87 98 Physical Exam GENERAL: This is a well-nourished, well-developed patient, in no apparent distress. SKIN: No rashes, ecchymoses or lesions. Cool and dry. HEAD: Atraumatic. Normocephalic. No temporal or scalp tenderness. EYES: Pupils equal round and reactive. Extraocular motions intact. No scleral icterus. No injection or drainage. ENT: Nose without bleeding, purulent drainage or septal hematoma. Throat without erythema, tonsillar hypertrophy or exudate. Uvula midline. Airway patent. NECK: Trachea midline. No JVD or lymphadenopathy. Supple, nontender, no meningeal signs. CARDIOVASCULAR: Regular rate and rhythm without murmurs, gallops, or rubs. RESPIRATORY: Clear to auscultation. Breath sounds equal bilaterally. No wheezes , rales, or rhonchi. GASTROINTESTINAL: Abdomen soft, non-tender, nondistended. No hepato-splenomegaly , or palpable masses. No guarding. MUSCULOSKELETAL: Extremities without clubbing, cyanosis, or edema. No joint tenderness, effusion, or edema noted. No calf tenderness. Negative Homans sign bilaterally. NEUROLOGICAL: Awake and alert. Cranial nerves II through XII intact. Motor and sensory grossly within normal limits. Five out of 5 muscle strength in all muscle groups. Normal speech. Laboratory Laboratory Tests Test 09/27/16 09/27/16 09/28/16 15:20 19:58 07:30 White Blood Count 3.8 2.7 Red Blood Count 4.27 4.02 Hemoglobin 11.1 10.8 Hematocrit 36.1 33.4 Mean Corpuscular Volume 84.7 83.1 Mean Corpuscular Hemoglobin 26.0 26.9 Mean Corpuscular Hemoglobin 30.7 32.4 Concent Red Cell Distribution Width 12.5 12.7 Platelet Count 251 238 Mean Platelet Volume 8.0 7.5 Neutrophils (%) (Auto) 53.5 74.2 Lymphocytes (%) (Auto) 29.1 10.4 Monocytes (%) (Auto) 14.8 10.4 Eosinophils (%) (Auto) 2.0 4.9 Basophils (%) (Auto) 0.6 0.1 Neutrophils # (Auto) 2.1 2.0 Lymphocytes # (Auto) 1.1 0.3 Monocytes # (Auto) 0.6 0.3 Eosinophils # (Auto) 0.1 0.1 Basophils # (Auto) 0.0 0.0 CBC Comment AUTO DIFF AUTO DIFF Differential Comment AUTO DIFF CONFIRMED Platelet Estimate NORMAL Platelet Morphology Comment NORMAL Erythrocyte Sedimentation Rate 65 Sodium Level 139 Potassium Level 4.3 Chloride Level 102 Carbon Dioxide Level 31.0 Anion Gap 6 Blood Urea Nitrogen 20 Creatinine 0.86 Estimat Glomerular Filtration 77 Rate Random Glucose 332 Hemoglobin A1c 13.6 Calcium Level 9.4 Magnesium Level 1.9 C-Reactive Protein 9.97 Lactic Acid Level 1.1 Date/Time Procedure Status Source Growth 09/27/16 15:30 Aerobic Blood Culture Received Blood Peripheral Pending 09/27/16 15:30 Anaerobic Blood Culture Received Blood Peripheral Pending 5/23/17 15:15 Gram Stain Received Wound Toe Pending 09/27/16 15:15 Wound Culture Received Wound Toe Pending Result Diagram: 09/28/16 0730 09/27/16 1520 Imaging Xray shows no signs of bone infection Course Right foot deminished pulses Right foot no edmea, no redness Right hallux necrosis distal no extending past mtpj Sensation loss Malodor, irregular borders post debridement no real bleeding Assessment and Plan Assessment and Plan Right hallux necrosis Cultures pending, pt on antibiotics Wound debrided bedside with still remaining necrosis deep Betadine wet to dry applied Pt does not understand the extent of distal hallux necrosis Plan is NASEEM to assess blood flow, MRI to assess bone involvement and extent of necrosis Pt may not have much distal toe left if debride alot more, may need hallux amp but will wait for results Thank you for the consult Peter Rosas DPM September 28, 2016 07:52
[2016-09-28 08:26] LABS: BICARBONATE 30.9 MEQ/L (21.0-32.0); POTASSIUM 3.6 MEQ/L (3.5-5.1)
[2016-09-28 08:49] LABS: BANDS 5 % (0-6); BASOPHILS 2 % (0-2); EOSINOPHILS 4 % (0-4); MYELOCYTES 2 % (0-0); NEUTROPHIL # MANUAL DIFF 2.2 TH/MM3 (1.8-7.7); POLYS (SEG NEUTROPHILS) 74 % (16-70); WBC DIFF SAMPLE 100
[2016-09-28 08:50] LABS: PLATELET ESTIMATE SMEAR NORMAL (NORMAL); PLATELET MORPHOLOGY NORMAL (NORMAL); SCAN/DIFF FINAL DIFF MANUAL
[2016-09-28] MEDS: GABAPENTIN 300 MG CAP PO SCH ×2 (09:07→13:24)
[2016-09-28] MEDS: PANTOPRAZOLE SOD 40 MG DELAYED RELEASE TAB PO SCH (09:07)
[2016-09-28] MEDS: ASPIRIN 81 MG CHEW TAB CHEW SCH (09:08)
[2016-09-28] MEDS: SODIUM CHLORIDE 0.9% FLUSH 10 ML FLUSH IV FLUSH SCH ×2 (09:08→21:40)
[2016-09-28] MEDS: FERROUS SULFATE 325 MG (65 MG ELEMENTAL IRON) TAB PO SCH (09:08)
[2016-09-28] MEDS: SERTRALINE HCL 50 MG TAB PO SCH (09:08)
[2016-09-28] MEDS ORDERED: GADODIAMIDE PF 287 MG/ML 5 ML VIAL (for RAD MRI) IV ONE (12:45)
--- NOTE | 2016-09-28 12:59 | RADRPT ---
EXAM DATE/TIME: 09/28/2016 12:10 [facility] COMPARISON: No previous studies available for comparison. INDICATIONS : Right great toe wound on plantar surface. CONTRAST: 13 cc Omniscan (gadodiamide) IV MEDICAL HISTORY : Hypertension. Diabetes mellitus type 2. SURGICAL HISTORY : CABG Tonsillectomy. Cholecystectomy. ENCOUNTER: Subsequent ACUITY: 2 day PAIN SCORE: 0/10 LOCATION: cranial TECHNIQUE: Multiplanar, multisequence MRI examination was performed without contrast and after the intravenous a dministration of gadolinium. FINDINGS: There is a deep ulceration involving the lateral plantar aspect of the great toe distally. There is m oderate underlying cellulitic changes in the soft tissues. The great toe distal phalanx is diffusely involved with marrow edema, appearance consistent with osteomyelitis. The interphalangeal joint is gr ossly intact and proximal phalanxes benign in appearance. No other areas of significant focal abnorma l marrow signal are identified. CONCLUSION: Osteomyelitis extensively involving the great toe distal phalanx Lam Bernstein MD on September 28, 2016 at 12:52 Board Certified Radiologist. This report was verified electronically.
--- NOTE | 2016-09-28 15:18 | RADRPT ---
EXAM DATE/TIME: 09/28/2016 00:00 [facility] COMPARISON: No previous studies available for comparison. INDICATIONS : Right Great Toe Cellulitis, Diabetic TECHNIQUE: Four-cuff ankle and brachial pressures were obtained. Pulse cuff waveform tracings of the ankles were recorded, and ankle-brachial indices were calculated. PRESSURES (mmHg): Brachial (arm): Right 96 Left IV SITE Ankle: Right 120 Left 134 NASEEM: Right 1.25 Left 1.40 TBI: Right 0.92 PULSED CUFF WAVEFORMS: Demonstrate normal amplitude bilaterally. CONCLUSION: Unremarkable ankle brachial indices. Lam Bernstein MD on September 28, 2016 at 15:17 Board Certified Radiologist. This report was verified electronically.
--- NOTE | 2016-09-28 15:40 | HHI.PR ---
Subjective Remarks Patient seen in follow up for toe infection. She reports feeling OK except for pain at the toe. It is still draining and is foul smell. No fevers or chills. Patient advised of the MRI result which suggest osteomyelitis of the right great toe, She understand amputation is likely. She inquired if she will still be able to walk. Objective Vitals Vital Signs Date Time Temp Pulse Resp B/P Pulse Ox O2 Delivery O2 Flow Rate FiO2 09/28/16 12:05 98.0 66 18 124/68 95 09/28/16 08:15 Room Air 09/28/16 08:05 98.3 68 18 127/69 94 09/28/16 04:00 97.5 69 18 115/56 94 09/28/16 02:19 70 98/52 Automatic Cuff 09/28/16 00:05 96.3 68 18 99/54 94 09/27/16 20:40 98.2 73 16 117/63 96 09/27/16 20:00 Room Air 09/27/16 18:00 88 18 134/78 99 Room Air 09/27/16 15:54 83 18 I/O 09/27/16 09/27/16 09/27/16 09/28/16 09/28/16 09/28/16 07:00 15:00 23:00 07:00 15:00 23:00 Intake Total 352 ml Balance 352 ml Intake IV Total 352 ml # Voids 0 0 # Bowel Movements 0 0 Result Diagram: 09/28/16 0730 09/28/16 0730 Imaging Last Impressions Foot MRI 09/28/16 0000 Signed Impressions: Service Date/Time: Wednesday, September 28, 2016 12:10 - CONCLUSION: Osteomyelitis extensively involving the great toe distal phalanx Lam Bernstein MD Toe X-Ray 09/27/16 0000 Signed Impressions: Service Date/Time: Tuesday, September 27, 2016 15:56 - CONCLUSION: Soft tissue swelling of the first digit with soft tissue gas suspicious for infection. The adjacent distal phalanx of the first digit demonstrates no definite findings to indicate osteomyelitis. Specifically, no erosions are seen. Lam Davis MD Objective Remarks GENERAL: This is a well-nourished, well-developed patient, in no apparent distress. CARDIOVASCULAR: Regular rate and rhythm without murmurs, gallops, or rubs. RESPIRATORY: Clear to auscultation. Breath sounds equal bilaterally. No wheezes , rales, or rhonchi. GASTROINTESTINAL: Abdomen soft, non-tender, nondistended. BS active x4 MUSCULOSKELETAL: right great toe wound is open and draining foul smelling purulence. NEUROLOGICAL: Awake and alert. Normal speech. A/P Problem List: (1) S/P CABG x 3 ICD Code: Z95.1 Status: Acute (2) Cellulitis of toe of right foot ICD Code: L03.031 Status: Acute (3) Diabetes ICD Code: E11.9 Status: Acute (4) GERD (gastroesophageal reflux disease) ICD Code: K21.9 Status: Chronic (5) Hypertension ICD Code: I10 Status: Chronic (6) Hyperlipidemia ICD Code: E78.5 Status: Chronic (7) Chronic back pain ICD Code: M54.9 Status: Chronic (8) Sepsis affecting skin ICD Code: L02.91 Status: Acute (9) Osteomyelitis of toe ICD Code: M86.9 Status: Acute Assessment and Plan 81 year old female with primary medical history of HTN, DM 2, status post CABG 2016, MRSA infection of the right hand who came into the hospital for evaluation of possible staph infection of her right great toe. Sepsis, SIRS: WBC 3.8, HR 98 Cellulitis Right Great Toe: MRI consistent with osteomyelitis. - Toe x-ray showed soft tissue swelling of the first digit with soft tissue gas suspicious for infection.MRI shows "Osteomyelitis extensively involving the great toe distal phalanx" - CRP 9.97 - Continue Vanco/ Zosyn - Pain management with Percocet PO - Wound Cultures, Blood Cultures follow up result - Podiatry following, ?will need amputation Hx CABG x3 HTN HLD - Continue home meds atorvastatin 40mg daily, ASA 81mg daily, - Monitor BP trend GERD - Pantoprazole daily DM2, unspecified control - Last HgA1C 02/08/16 - 13.0 - Insulin SS - Accuchecks. Monitor for hypoglycemia - Check HgA1C Neuropathy - Continue gabapentin 600mg TID Anxiety - Continue home meds clonazepam, zoloft DVT prop SCD Problem Qualifiers (1) Diabetes: Qualified Code: E11.9 - Type 2 diabetes mellitus without complication, with long-term current use of insulin (2) GERD (gastroesophageal reflux disease): Qualified Code: K21.9 - Gastroesophageal reflux disease without esophagitis (3) Hypertension: Qualified Code: I10 - Essential hypertension (4) Hyperlipidemia: Qualified Code: E78.2 - Mixed hyperlipidemia (5) Chronic back pain: Can Crystal MD September 28, 2016 15:40
[2016-09-28] MEDS: VANCOMYCIN INJ 1,000 MG in SODIUM CHLOR 0.9% 250 ML INJ 250 ML IV SCH (21:39)
[2016-09-28] MEDS: clonazePAM 0.5 MG TAB PO SCH (21:40)
[2016-09-28] MEDS: ATORVASTATIN 40 MG TAB PO SCH (21:40)
[2016-09-29] VITALS (7 sets, daily range): BP systolic 118–150; BP diastolic 60–69; PULSE 70–94; RESP 18–20; TEMP 97.7–99.1; O2SAT 94–96
[2016-09-29] MEDS: PIPERACIL-TAZO 3.375 GM PREMIX 50 ML IV SCH ×4 (00:40→17:29)
[2016-09-29] MEDS: INSULIN ASPART SUPPLEMENTAL SCALE SQ SCH ×4 (05:35→22:03)
[2016-09-29 08:38] LABS: AUTOMATED NEUTROPHIL # 2.2 TH/MM3 (1.8-7.7); BASOPHIL % 0.4 % (0.0-2.0); EOSINOPHIL # 0.3 TH/MM3 (0-0.4); EOSINOPHIL % 7.1 % (0.0-4.0); HEMATOCRIT 34.1 % (35.0-46.0); LYMPH % 20.3 % (9.0-44.0); LYMPHOCYTE # 0.8 TH/MM3 (1.0-4.8); MEAN CELL VOLUME 83.4 FL (80.0-100.0); MEAN CORPUSCULAR HEMOGLOBIN 26.9 PG (27.0-34.0); MEAN CORPUSCULAR HGB CONC 32.2 % (32.0-36.0); MONO % 14.7 % (0.0-8.0); NEUT % 57.5 % (16.0-70.0); PLATELET COUNT 272 TH/MM3 (150-450); RED BLOOD COUNT 4.09 MIL/MM3 (4.00-5.30); RED CELL DISTRIBUTION WIDTH 12.5 % (11.6-17.2); WHITE BLOOD COUNT 3.8 TH/MM3 (4.0-11.0)
[2016-09-29 08:41] LABS: HEMO FLAGS AUTO DIFF
[2016-09-29] MEDS: SERTRALINE HCL 50 MG TAB PO SCH (08:56)
[2016-09-29] MEDS: FERROUS SULFATE 325 MG (65 MG ELEMENTAL IRON) TAB PO SCH (08:56)
[2016-09-29] MEDS: ASPIRIN 81 MG CHEW TAB CHEW SCH (08:57)
[2016-09-29] MEDS: GABAPENTIN 300 MG CAP PO SCH ×2 (08:57→21:00)
[2016-09-29] MEDS: PANTOPRAZOLE SOD 40 MG DELAYED RELEASE TAB PO SCH (08:57)
[2016-09-29] MEDS: SODIUM CHLORIDE 0.9% FLUSH 10 ML FLUSH IV FLUSH SCH ×2 (08:58→21:43)
[2016-09-29] MEDS: oxyCODONE/ACETAMINOPHEN 7.5 MG/325 MG TAB PO PRN ×4 (08:59→21:42)
[2016-09-29 09:11] LABS: BANDS 9 % (0-6); EOSINOPHILS 8 % (0-4); MYELOCYTES 2 % (0-0); NEUTROPHIL # MANUAL DIFF 2.4 TH/MM3 (1.8-7.7); PLATELET ESTIMATE SMEAR NORMAL (NORMAL); PLATELET MORPHOLOGY NORMAL (NORMAL); POLYS (SEG NEUTROPHILS) 52 % (16-70); SCAN/DIFF FINAL DIFF MANUAL; WBC DIFF SAMPLE 100
[2016-09-29 09:47] LABS: ALKALINE PHOSPHATASE 224 U/L (45-117); ALT (GPT) 74 U/L (10-53); ANION GAP 4 MEQ/L (5-15); AST (GOT) 56 U/L (15-37); BICARBONATE 32.7 MEQ/L (21.0-32.0); BLOOD UREA NITROGEN 19 MG/DL (7-18); CHLORIDE 103 MEQ/L (98-107); GLOMERULAR FILTRATION RATE 91 ML/MIN (>89); POTASSIUM 4.7 MEQ/L (3.5-5.1); SODIUM (NA) 140 MEQ/L (136-145); TOTAL BILIRUBIN ADULT 0.3 MG/DL (0.2-1.0)
--- NOTE | 2016-09-29 10:55 | HHI.PR ---
Subjective Remarks Patient reported persistent pain in the right toe. Still having drainage. No fevers or chills. I discussed MRI findings with the patient and her family in the room. She understands she will likely need amputation of the toe. Podiatry will follow up. Objective Vitals Vital Signs Date Time Temp Pulse Resp B/P Pulse Ox O2 Delivery O2 Flow Rate FiO2 09/29/16 08:00 Room Air 09/29/16 08:00 97.9 79 20 123/66 95 09/29/16 04:00 98.0 72 18 128/66 94 09/29/16 00:00 97.7 83 18 118/60 94 09/28/16 20:06 98.2 72 18 112/60 95 09/28/16 20:00 Room Air 09/28/16 16:05 98.7 70 18 100/58 94 09/28/16 12:05 98.0 66 18 124/68 95 I/O 09/28/16 09/28/16 09/28/16 09/29/16 09/29/16 09/29/16 07:00 15:00 23:00 07:00 15:00 23:00 Intake Total 480 ml 280 ml 120 ml Output Total 200 ml Balance 480 ml 280 ml -80 ml Intake Oral 480 ml 280 ml 120 ml Output Urine Total 200 ml # Voids 0 3 3 # Bowel Movements 0 0 0 0 Result Diagram: 09/29/16 0812 09/29/16 0812 Objective Remarks GENERAL: This is a well-nourished, well-developed patient, in no apparent distress. CARDIOVASCULAR: Regular rate and rhythm without murmurs, gallops, or rubs. RESPIRATORY: Clear to auscultation. Breath sounds equal bilaterally. No wheezes , rales, or rhonchi. GASTROINTESTINAL: Abdomen soft, non-tender, nondistended. BS active x4 MUSCULOSKELETAL: right great toe wound is open and draining foul smelling purulence. NEUROLOGICAL: Awake and alert. Normal speech. A/P Problem List: (1) S/P CABG x 3 ICD Code: Z95.1 Status: Acute (2) Cellulitis of toe of right foot ICD Code: L03.031 Status: Acute (3) Diabetes ICD Code: E11.9 Status: Acute (4) GERD (gastroesophageal reflux disease) ICD Code: K21.9 Status: Chronic (5) Hypertension ICD Code: I10 Status: Chronic (6) Hyperlipidemia ICD Code: E78.5 Status: Chronic (7) Chronic back pain ICD Code: M54.9 Status: Chronic (8) Sepsis affecting skin ICD Code: L02.91 Status: Acute (9) Osteomyelitis of toe ICD Code: M86.9 Status: Acute Assessment and Plan 81 year old female with primary medical history of HTN, DM 2, status post CABG 2016, MRSA infection of the right hand who came into the hospital for evaluation of possible staph infection of her right great toe. Sepsis, SIRS: WBC 3.8, HR 98 Cellulitis Right Great Toe: MRI consistent with osteomyelitis. - Toe x-ray showed soft tissue swelling of the first digit with soft tissue gas suspicious for infection.MRI shows "Osteomyelitis extensively involving the great toe distal phalanx" - CRP 9.97 - Continue Vanco/ Zosyn - Pain management with Percocet PO - Wound Cultures, Blood Cultures follow up result - Podiatry follow-up. Likely need amputation Hx CABG x3 HTN HLD - Continue home meds atorvastatin 40mg daily, ASA 81mg daily, - Monitor BP trend GERD - Pantoprazole daily DM2, unspecified control - Last HgA1C 02/08/16 - 13.0 - Insulin SS - Accuchecks. Monitor for hypoglycemia - Check HgA1C Neuropathy - Continue gabapentin 600mg TID Anxiety - Continue home meds clonazepam, zoloft DVT prop SCD Problem Qualifiers (1) Diabetes: Qualified Code: E11.9 - Type 2 diabetes mellitus without complication, with long-term current use of insulin (2) GERD (gastroesophageal reflux disease): Qualified Code: K21.9 - Gastroesophageal reflux disease without esophagitis (3) Hypertension: Qualified Code: I10 - Essential hypertension (4) Hyperlipidemia: Qualified Code: E78.2 - Mixed hyperlipidemia (5) Chronic back pain: Can Crystal MD September 29, 2016 10:55
--- NOTE | 2016-09-29 13:37 | PD.POD ---
Subjective Podiatric Problems Pt doing well at bedside Pain score: 1 Past Med/Surg/Social History Social History Smoking Status: Never Smoker Objective Vital Signs Vital Signs Date Time Temp Pulse Resp B/P Pulse Ox O2 Delivery O2 Flow Rate FiO2 09/29/16 08:00 Room Air 09/29/16 08:00 97.9 79 20 123/66 95 09/29/16 04:00 98.0 72 18 128/66 94 09/29/16 00:00 97.7 83 18 118/60 94 09/28/16 20:06 98.2 72 18 112/60 95 09/28/16 20:00 Room Air 09/28/16 16:05 98.7 70 18 100/58 94 Coded Allergies: Darvocet-N 100 (Verified Allergy, Severe, Rash, 06/06/16) rash Demerol (Verified Allergy, Severe, Anaphylaxis, 06/06/16) anaphylactic shock Ibuprofen (Verified Allergy, Severe, Swelling, 06/06/16) Morphine (Verified Allergy, Severe, Rash, 06/06/16) Motrin (Verified Allergy, Severe, Rash, 06/06/16) rash Tylenol #3 (Verified Allergy, Severe, Rash, 05/06/16) causes rash Vibramycin (Verified Allergy, Severe, Rash, 06/06/16) rash *MDRO Multi-Drug Resistant Organism (Verified Adverse Reaction, Unknown, ) MRSA PCR screen POSITIVE-09/28/16 Exam-Podiatry Remarks Right foot-deminished pulses Sensation loss Plantar hallux necrosis with malodor No foot edema or streaking Assessment & Plan Diagnosis: (1) Osteomyelitis of toe Status: Acute Plan: Plan is OR tomorrow for right hallux amputation NPO at midnight I redressed toe with betadine wet to dry ABIs done, elevated NASEEM but pt requiring surgical intervention and foot warm so necrosis is more from wound not circulation so will proceed Peter Rosas DPM September 29, 2016 13:37
[2016-09-29] MEDS: clonazePAM 0.5 MG TAB PO SCH (21:42)
[2016-09-29] MEDS: ATORVASTATIN 40 MG TAB PO SCH (21:42)
[2016-09-29] MEDS: VANCOMYCIN INJ 1,000 MG in SODIUM CHLOR 0.9% 250 ML INJ 250 ML IV SCH (21:43)
[2016-09-29] MEDS: hydrOXYzine HCL 25 MG TAB PO PRN (21:49)
[2016-09-30] VITALS: BP 147/69; PULSE 51; RESP 16; TEMP 97.8; O2SAT 95
[2016-09-30] MEDS: PIPERACIL-TAZO 3.375 GM PREMIX 50 ML IV SCH ×3 (00:24→13:48)
[2016-09-30] MEDS: oxyCODONE/ACETAMINOPHEN 7.5 MG/325 MG TAB PO PRN ×4 (02:38→20:10)
[2016-09-30 05:21] VITALS: BP 137/63; PULSE 65; RESP 18; TEMP 97.9; O2SAT 97
[2016-09-30] MEDS: INSULIN ASPART SUPPLEMENTAL SCALE SQ SCH ×4 (05:27→22:07)
[2016-09-30 08:00] VITALS: BP 129/73; PULSE 66; RESP 20; TEMP 97.8; O2SAT 97
[2016-09-30] MEDS: SERTRALINE HCL 50 MG TAB PO SCH (09:05)
[2016-09-30] MEDS: FERROUS SULFATE 325 MG (65 MG ELEMENTAL IRON) TAB PO SCH (09:06)
[2016-09-30] MEDS: ASPIRIN 81 MG CHEW TAB CHEW SCH (09:06)
[2016-09-30] MEDS: PANTOPRAZOLE SOD 40 MG DELAYED RELEASE TAB PO SCH (09:06)
[2016-09-30] MEDS: GABAPENTIN 300 MG CAP PO SCH ×2 (09:07→21:00)
[2016-09-30] MEDS: SODIUM CHLORIDE 0.9% FLUSH 10 ML FLUSH IV FLUSH SCH ×2 (09:10→21:00)
[2016-09-30 12:00] VITALS: BP 135/77; PULSE 69; RESP 20; TEMP 97.5; O2SAT 96
[2016-09-30] MEDS ORDERED: PHENYLEPH/NS 1000 MCG/10 ML SYR IV ONE (12:00)
[2016-09-30] MEDS ORDERED: PROPOFOL 200 MG/20 ML AMP IV ONE (12:00)
--- NOTE | 2016-09-30 15:01 | HHI.PR ---
Subjective Remarks Follow-up visit right great toe osteomyelitis, DM 2, HTN. Patient seen and examined today family at the bedside. Patient asking regarding right toe amputation. Discussed with patient and family members importance of surgical intervention secondary to osteomyelitis. Answered all concerns and questions. Denies SOB/ dyspnea. Denies chest pain, palpitations, headaches, dizziness. Denies fevers, chills, n/v/d. Denies hematuria, dysuria. Objective Vitals Vital Signs Date Time Temp Pulse Resp B/P Pulse Ox O2 Delivery O2 Flow Rate FiO2 09/30/16 08:00 97.8 66 20 129/73 97 09/30/16 05:21 97.9 65 18 137/63 97 09/30/16 00:00 97.8 51 16 147/69 95 09/29/16 20:55 Room Air 09/29/16 20:00 99.1 70 18 147/69 96 Manual Cuff/Palpation 09/29/16 17:00 94 09/29/16 16:00 98.1 73 20 150/67 95 I/O 09/29/16 09/29/16 09/29/16 09/30/16 09/30/16 09/30/16 07:00 15:00 23:00 07:00 15:00 23:00 Intake Total 120 ml 540 ml 592 ml 125 ml Output Total 200 ml 300 ml 800 ml Balance -80 ml 240 ml 592 ml -675 ml Intake Oral 120 ml 480 ml 240 ml 0 ml IV Total 60 ml 352 ml 125 ml Output Urine Total 200 ml 300 ml 800 ml # Bowel Movements 0 1 1 2 Result Diagram: 09/29/16 0812 09/29/16 0812 Imaging Last Impressions Foot MRI 09/28/16 0000 Signed Impressions: Service Date/Time: Wednesday, September 28, 2016 12:10 - CONCLUSION: Osteomyelitis extensively involving the great toe distal phalanx Lam Bernstein MD Toe X-Ray 09/27/16 0000 Signed Impressions: Service Date/Time: Tuesday, September 27, 2016 15:56 - CONCLUSION: Soft tissue swelling of the first digit with soft tissue gas suspicious for infection. The adjacent distal phalanx of the first digit demonstrates no definite findings to indicate osteomyelitis. Specifically, no erosions are seen. Lam Davis MD Objective Remarks GENERAL: This is a well-nourished, well-developed patient, in no apparent distress. SKIN: Warm and dry. Right great toe covered with dsg HEAD: Atraumatic. Normocephalic. No temporal or scalp tenderness. EYES: Pupils equal round and reactive. No scleral icterus. No injection or drainage. ENT: Nose without bleeding. Throat without erythema. Uvula midline. Airway patent. NECK: Trachea midline. No JVD or lymphadenopathy. CARDIOVASCULAR: Regular rate and rhythm without murmurs, gallops, or rubs. RESPIRATORY: Clear to auscultation. Breath sounds equal bilaterally. No wheezes , rales, or rhonchi. GASTROINTESTINAL: Abdomen soft, non-tender, nondistended. BS active x4 MUSCULOSKELETAL: Extremities without clubbing, cyanosis, Bilat Lower Ext no edema. NEUROLOGICAL: Awake and alert. Oriented to person, place, time. Motor and sensory grossly within normal limits. Normal speech. A/P Problem List: (1) S/P CABG x 3 ICD Code: Z95.1 Status: Acute (2) Cellulitis of toe of right foot ICD Code: L03.031 Status: Acute (3) Diabetes ICD Code: E11.9 Status: Acute (4) GERD (gastroesophageal reflux disease) ICD Code: K21.9 Status: Chronic (5) Hypertension ICD Code: I10 Status: Chronic (6) Hyperlipidemia ICD Code: E78.5 Status: Chronic (7) Chronic back pain ICD Code: M54.9 Status: Chronic (8) Sepsis affecting skin ICD Code: L02.91 Status: Acute (9) Osteomyelitis of toe ICD Code: M86.9 Status: Acute Assessment and Plan 81 year old female with primary medical history of HTN, DM 2, status post CABG 2016, MRSA infection of the right hand who came into the hospital for evaluation of possible staph infection of her right great toe. Sepsis, SIRS: WBC 3.8, HR 98 Cellulitis/ Osteomyelitis Right Great Toe: MRI consistent with osteomyelitis. - Toe x-ray showed soft tissue swelling of the first digit with soft tissue gas suspicious for infection. MRI shows "Osteomyelitis extensively involving the great toe distal phalanx" - CRP 9.97 - Continue Vanco/ Zosyn. May DC Zosyn as the wound cultures was growing group B strep. - Pain management with Percocet PO - Wound Cultures growing group B beta strep, Blood Cultures no growth in 3 days - Podiatry follow-up. Amputation scheduled for today. Hx CABG x3 HTN HLD - Continue home meds atorvastatin 40mg daily, ASA 81mg daily, - Monitor BP trend GERD - Pantoprazole daily DM2, unspecified control - Last HgA1C 02/08/16 - 13.0, 09/27/16 HgA1C 13.6 - Insulin SS - Accuchecks. Monitor for hypoglycemia - May need to add basal insulin and possibly metformin for better control of blood glucose post surgery Neuropathy - Continue gabapentin 600mg TID Anxiety - Continue home meds clonazepam, zoloft DVT prop SCD Discussed with patient, nursing, family members, Dr. Crystal Problem Qualifiers (1) Diabetes: Qualified Code: E11.9 - Type 2 diabetes mellitus without complication, with long-term current use of insulin (2) GERD (gastroesophageal reflux disease): Qualified Code: K21.9 - Gastroesophageal reflux disease without esophagitis (3) Hypertension: Qualified Code: I10 - Essential hypertension (4) Hyperlipidemia: Qualified Code: E78.2 - Mixed hyperlipidemia (5) Chronic back pain: Melisa Cotton September 30, 2016 15:01
[2016-09-30] MEDS ORDERED: BUPIVACAINE HCL PF 0.5% 30 ML VIAL ONE (15:02)
[2016-09-30] MEDS ORDERED: MIDAZOLAM HCL 2 MG/2 ML VIAL ONE (15:16)
[2016-09-30] MEDS ORDERED: LIDOCAINE HCL 1% 50 ML VIAL ONE (15:34)
[2016-09-30 16:00] VITALS: BP 162/67; PULSE 83; RESP 20; TEMP 98.5; O2SAT 94
[2016-09-30] MEDS ORDERED: DO NOT ADM ANY ANTICOAGULANT DRUGS PRN (16:01)
--- NOTE | 2016-09-30 16:47 | MP ---
cc: MAGALY ALFONSO DPM DATE OF SURGERY 09/30/16 PREOPERATIVE DIAGNOSIS Right hallux osteomyelitis. POSTOPERATIVE DIAGNOSIS Right hallux osteomyelitis. PROCEDURE Right hallux amputation with primary closure ESTIMATED BLOOD LOSS [address] Mars Alfonso SPECIMENS Right hallux for pathology. TOURNIQUET TIME There was a right ankle tourniquet at 250 mmHg for 11 minutes ANESTHESIA MAC with 10 mL of 0.5 Marcaine plain and 100% lidocaine plain preoperatively and 10 mL of 0.5 Marcaine plain postoperatively COMPLICATIONS None. INDICATIONS This patient is an 81-year-old diabetic female with a chief complaint of right hallux plantar necrosis. MRI revealed osteomyelitis of the hallux. The patient is requiring surgical intervention for the problem at this time due to inability to treat bone infection and risk of sepsis. The patient understands the procedure performed today as well as potential risks, complications. All of her questions were answered. Risks and benefits discussed at length. PROCEDURE IN DETAIL The patient was brought to the operating room, placed on the operating table in supine position, pneumatic ankle tourniquet was placed about the right ankle. The foot was scrubbed, prepped draped in usual sterile fashion. Ten mL of 0.5 Marcaine plain and 1% lidocaine plain was injected preoperatively. First attention was directed in which after the tourniquet a fish mouth incision was made around the hallux just distal to the metatarsophalangeal joint. Next, a 10 blade was used to go deep and avoid all vital structures. Once to the level deep in the joint, the joint was disarticulated. Following the fishmouth incision drawn out, the toe was removed and sent to pathology. The tissues found to be nice and clean around the joint. Metatarsal head had no signs of infection, no soft cartilage or bone. The area was copiously flushed. No bleeders were revealed. Vicryl was used to close subcutaneous tissue with incision nicely well approximated and nylon was used to close the skin. Adaptic soaked in Betadine, 4x4, cast padding and Tom used to wrap the foot. The patient handled anesthesia well. AMANDA Peralta/ /4:05 PM /4:37 PM
[2016-09-30] MEDS ORDERED: PHARMACY ORDERED LAB ONE (19:45)
[2016-09-30 20:00] VITALS: BP 140/64; PULSE 73; RESP 20; TEMP 98.4; O2SAT 96
[2016-09-30] MEDS: clonazePAM 0.5 MG TAB PO SCH (22:09)
[2016-09-30] MEDS: ATORVASTATIN 40 MG TAB PO SCH (22:09)
[2016-09-30] MEDS: hydrOXYzine HCL 25 MG TAB PO PRN (22:16)
[2016-10-01] VITALS: BP 142/82; PULSE 71; RESP 18; TEMP 98.1; O2SAT 95
[2016-10-01] MEDS: oxyCODONE/ACETAMINOPHEN 7.5 MG/325 MG TAB PO PRN ×3 (00:19→09:26)
[2016-10-01 04:00] VITALS: BP 130/72; PULSE 61; RESP 18; TEMP 97.9; O2SAT 96
[2016-10-01] MEDS: INSULIN ASPART SUPPLEMENTAL SCALE SQ SCH ×4 (06:21→23:18)
[2016-10-01 08:00] VITALS: BP 126/64; PULSE 64; RESP 16; TEMP 98.1; O2SAT 97
--- NOTE | 2016-10-01 08:40 | PD.POD ---
Subjective Podiatric Problems Pt doing well at bedside Pain score: 2 Past Med/Surg/Social History Social History Smoking Status: Never Smoker Objective Vital Signs Vital Signs Date Time Temp Pulse Resp B/P Pulse Ox O2 Delivery O2 Flow Rate FiO2 10/01/16 06:11 Room Air 10/01/16 04:00 97.9 61 18 130/72 96 10/01/16 01:12 Room Air 10/01/16 00:00 98.1 71 18 142/82 95 09/30/16 21:00 Room Air 09/30/16 20:00 98.4 73 20 140/64 96 09/30/16 16:40 72 16 147/66 96 Room Air 09/30/16 16:30 70 16 141/59 95 Room Air 09/30/16 16:30 Room Air 09/30/16 16:15 68 16 135/62 95 Room Air 09/30/16 16:05 97.8 70 16 107/57 90 Room Air 09/30/16 16:00 98.5 83 20 162/67 94 09/30/16 12:00 97.5 69 20 135/77 96 09/30/16 12:00 Room Air Coded Allergies: Darvocet-N 100 (Verified Allergy, Severe, Rash, 06/06/16) rash Demerol (Verified Allergy, Severe, Anaphylaxis, 06/06/16) anaphylactic shock Ibuprofen (Verified Allergy, Severe, Swelling, 06/06/16) Morphine (Verified Allergy, Severe, Rash, 06/06/16) Motrin (Verified Allergy, Severe, Rash, 06/06/16) rash Tylenol #3 (Verified Allergy, Severe, Rash, 05/06/16) causes rash Vibramycin (Verified Allergy, Severe, Rash, 06/06/16) rash *MDRO Multi-Drug Resistant Organism (Verified Adverse Reaction, Unknown, ) MRSA PCR screen POSITIVE-09/28/16 Physical Exam Remarks Right foot warm Incision c/d/i Sensation intact No ascending redness or streaking No calf pain or foot swelling Assessment & Plan Diagnosis: (1) Osteomyelitis of toe Status: Acute Plan: Plan is OR tomorrow for right hallux amputation NPO at midnight I redressed toe with betadine wet to dry ABIs done, elevated NASEEM but pt requiring surgical intervention and foot warm so necrosis is more from wound not circulation so will proceed A/P POD 1 right hallux amputation -Dressing changed Ok to DC per podiatry but ID to see to assess PICC versus oral Path pending Discharge Planning Ok to see DR Rosas in one week Peter Rosas DPM October 01, 2016 08:40
[2016-10-01] MEDS: GABAPENTIN 300 MG CAP PO SCH ×2 (09:24→23:09)
[2016-10-01] MEDS: SODIUM CHLORIDE 0.9% FLUSH 10 ML FLUSH IV FLUSH SCH ×2 (09:24→21:00)
[2016-10-01] MEDS: FERROUS SULFATE 325 MG (65 MG ELEMENTAL IRON) TAB PO SCH (09:24)
[2016-10-01] MEDS: ASPIRIN 81 MG CHEW TAB CHEW SCH (09:24)
[2016-10-01] MEDS: SERTRALINE HCL 50 MG TAB PO SCH (09:25)
[2016-10-01] MEDS: PANTOPRAZOLE SOD 40 MG DELAYED RELEASE TAB PO SCH (09:25)
[2016-10-01 12:00] VITALS: BP 170/77; PULSE 80; RESP 16; TEMP 97.8; O2SAT 95
--- NOTE | 2016-10-01 13:14 | HHI.PR ---
Subjective Remarks Patient seen in follow-up for toe osteomyelitis and multiple comorbid conditions as listed above. She reports that she is feeling okay except for worsening pain on the right foot. She would like an increase in her pain medications. Otherwise no fevers or chills. Objective Vitals Vital Signs Date Time Temp Pulse Resp B/P Pulse Ox O2 Delivery O2 Flow Rate FiO2 10/01/16 10:30 18 10/01/16 08:00 98.1 64 16 126/64 97 10/01/16 06:11 Room Air 10/01/16 04:00 97.9 61 18 130/72 96 10/01/16 01:12 Room Air 10/01/16 00:00 98.1 71 18 142/82 95 09/30/16 21:00 Room Air 09/30/16 20:00 98.4 73 20 140/64 96 09/30/16 16:40 72 16 147/66 96 Room Air 09/30/16 16:30 70 16 141/59 95 Room Air 09/30/16 16:30 Room Air 09/30/16 16:15 68 16 135/62 95 Room Air 09/30/16 16:05 97.8 70 16 107/57 90 Room Air 09/30/16 16:00 98.5 83 20 162/67 94 I/O 09/30/16 09/30/16 09/30/16 10/01/16 10/01/16 10/01/16 07:00 15:00 23:00 07:00 15:00 23:00 Intake Total 125 ml 72 ml 608 ml 2 ml Output Total 800 ml 5 ml 150 ml Balance -675 ml 72 ml 603 ml -148 ml Intake Oral 0 ml 0 ml IV Total 125 ml 72 ml 308 ml 2 ml Other 300 ml Output Urine Total 800 ml 0 ml 150 ml Estimated Blood Loss 5 ml # Voids 2 # Bowel Movements 2 2 1 Result Diagram: 09/29/1681109/29/16811 Objective Remarks GENERAL: This is a well-nourished, well-developed patient, in no apparent distress. CARDIOVASCULAR: Regular rate and rhythm without murmurs, gallops, or rubs. RESPIRATORY: Clear to auscultation. Breath sounds equal bilaterally. No wheezes , rales, or rhonchi. GASTROINTESTINAL: Abdomen soft, non-tender, nondistended. BS active x4 MUSCULOSKELETAL: Status post right great toe amputation. Postoperative dressing appeared clean. NEUROLOGICAL: Awake and alert. Normal speech. A/P Problem List: (1) S/P CABG x 3 ICD Code: Z95.1 Status: Acute (2) Cellulitis of toe of right foot ICD Code: L03.031 Status: Acute (3) Diabetes ICD Code: E11.9 Status: Acute (4) GERD (gastroesophageal reflux disease) ICD Code: K21.9 Status: Chronic (5) Hypertension ICD Code: I10 Status: Chronic (6) Hyperlipidemia ICD Code: E78.5 Status: Chronic (7) Chronic back pain ICD Code: M54.9 Status: Chronic (8) Sepsis affecting skin ICD Code: L02.91 Status: Acute (9) Osteomyelitis of toe ICD Code: M86.9 Status: Acute Assessment and Plan 81 year old female with primary medical history of HTN, DM 2, status post CABG 2016, MRSA infection of the right hand who came into the hospital for evaluation of possible staph infection of her right great toe. Sepsis, SIRS: WBC 3.8, HR 98 Cellulitis Right Great Toe: MRI consistent with osteomyelitis. - Toe x-ray showed soft tissue swelling of the first digit with soft tissue gas suspicious for infection.MRI shows "Osteomyelitis extensively involving the great toe distal phalanx" - CRP 9.97 on admission - Patient is status post amputation of the right hallux. Sent for pathology - Infectious diseases consulted to give opinion regarding continuing antibiotics. - Continue Vanco - Pain management with Percocet PO. Increase to 10/325 - Wound Cultures growing group D strep, Blood Cultures so far negative Hx CABG x3 HTN HLD - Continue home meds atorvastatin 40mg daily, ASA 81mg daily, - Monitor BP trend GERD - Pantoprazole daily DM2, unspecified control - Last HgA1C 02/08/16 - 13.0 - Insulin SS - Accuchecks. Monitor for hypoglycemia - HgA1C is still 13. Patient counseled on the need to have better control of diabetes. She is encouraged to work with her primary care physician and adhere to a strict diabetic diet. Neuropathy - Continue gabapentin 600mg TID Anxiety - Continue home meds clonazepam, zoloft DVT prop SCD Discharge Planning Probable DC tomorrow based on ID input. Problem Qualifiers (1) Diabetes: Qualified Code: E11.9 - Type 2 diabetes mellitus without complication, with long-term current use of insulin (2) GERD (gastroesophageal reflux disease): Qualified Code: K21.9 - Gastroesophageal reflux disease without esophagitis (3) Hypertension: Qualified Code: I10 - Essential hypertension (4) Hyperlipidemia: Qualified Code: E78.2 - Mixed hyperlipidemia (5) Chronic back pain: Can Crystal MD October 01, 2016 13:14
[2016-10-01] MEDS: VANCOMYCIN INJ 1,250 MG in SODIUM CHLOR 0.9% 250 ML INJ 250 ML IV SCH (13:19)
[2016-10-01] MEDS: oxyCODONE/ACETAMINOPHEN 10 MG/325 MG TAB PO PRN (13:43)
[2016-10-01] MEDS ORDERED: VANCOMYCIN INJ 1,000 MG in SODIUM CHLOR 0.9% 250 ML INJ 250 ML IV SCH (14:00)
[2016-10-01 16:00] VITALS: BP 145/65; PULSE 77; RESP 16; TEMP 98.6; O2SAT 93
[2016-10-01 20:00] VITALS: BP 100/56; PULSE 80; RESP 16; TEMP 97.2; O2SAT 95
[2016-10-01] MEDS: clonazePAM 0.5 MG TAB PO SCH (23:07)
[2016-10-01] MEDS: ATORVASTATIN 40 MG TAB PO SCH (23:07)
[2016-10-01] MEDS: INSULIN DETEMIR 100 UNITS/ML VIAL SQ SCH (23:17)
[2016-10-02] VITALS: BP 128/61; PULSE 81; RESP 16; TEMP 98.2; O2SAT 94
[2016-10-02] MEDS: oxyCODONE/ACETAMINOPHEN 10 MG/325 MG TAB PO PRN ×4 (01:52→21:44)
[2016-10-02 04:00] VITALS: BP 133/60; PULSE 83; RESP 16; TEMP 98.8; O2SAT 94
[2016-10-02] MEDS: INSULIN ASPART SUPPLEMENTAL SCALE SQ SCH ×4 (06:44→21:42)
[2016-10-02 07:09] LABS: MEAN CELL VOLUME 83.8 FL (80.0-100.0); MEAN CORPUSCULAR HEMOGLOBIN 26.5 PG (27.0-34.0); MEAN CORPUSCULAR HGB CONC 31.7 % (32.0-36.0); PLATELET COUNT 262 TH/MM3 (150-450); RED BLOOD COUNT 4.18 MIL/MM3 (4.00-5.30); RED CELL DISTRIBUTION WIDTH 12.7 % (11.6-17.2); REVIEW FLAG FINAL
[2016-10-02 08:06] LABS: ALKALINE PHOSPHATASE 176 U/L (45-117); ALT (GPT) 32 U/L (10-53); ANION GAP 8 MEQ/L (5-15); AST (GOT) 18 U/L (15-37); BICARBONATE 27.5 MEQ/L (21.0-32.0); BLOOD UREA NITROGEN 7 MG/DL (7-18); CHLORIDE 104 MEQ/L (98-107); GLOMERULAR FILTRATION RATE 137 ML/MIN (>89); POTASSIUM 4.1 MEQ/L (3.5-5.1); SODIUM (NA) 139 MEQ/L (136-145); TOTAL BILIRUBIN ADULT 0.3 MG/DL (0.2-1.0)
[2016-10-02] MEDS: ASPIRIN 81 MG CHEW TAB CHEW SCH (09:01)
[2016-10-02] MEDS: PANTOPRAZOLE SOD 40 MG DELAYED RELEASE TAB PO SCH (09:01)
[2016-10-02] MEDS: SERTRALINE HCL 50 MG TAB PO SCH (09:01)
[2016-10-02] MEDS: GABAPENTIN 300 MG CAP PO SCH ×2 (09:01→21:45)
[2016-10-02] MEDS: FERROUS SULFATE 325 MG (65 MG ELEMENTAL IRON) TAB PO SCH (09:01)
[2016-10-02] MEDS: SODIUM CHLORIDE 0.9% FLUSH 10 ML FLUSH IV FLUSH SCH ×2 (09:03→21:45)
[2016-10-02 09:28] VITALS: BP 135/64; PULSE 77; RESP 18; TEMP 98.1; O2SAT 92
[2016-10-02] MEDS: VANCOMYCIN INJ 1,250 MG in SODIUM CHLOR 0.9% 250 ML INJ 250 ML IV SCH (12:55)
[2016-10-02 13:07] VITALS: BP 126/63; PULSE 78; RESP 18; TEMP 97.7; O2SAT 94
--- NOTE | 2016-10-02 13:26 | HHI.PR ---
Subjective Remarks Follow-up for right foot infection. Patient stated pain is control as long as she get her pain medication on schedule. Otherwise she has no complaints. Patient remains afebrile. Dealt with patient's nurse outside of her room. Objective Vitals Vital Signs Date Time Temp Pulse Resp B/P Pulse Ox O2 Delivery O2 Flow Rate FiO2 10/02/16 13:07 97.7 78 18 126/63 94 10/02/16 11:12 18 10/02/16 09:28 98.1 77 18 135/64 92 10/02/16 04:00 98.8 83 16 133/60 94 10/02/16 00:00 98.2 81 16 128/61 94 10/01/16 20:00 97.2 80 16 100/56 95 10/01/16 16:00 98.6 77 16 145/65 93 10/01/16 15:17 95 Room Air I/O 10/01/16 10/01/16 10/01/16 10/02/16 10/02/16 10/02/16 07:00 15:00 23:00 07:00 15:00 23:00 Intake Total 2 ml 780 ml 490 ml Output Total 150 ml 400 ml 100 ml Balance -148 ml 380 ml 390 ml Intake Oral 780 ml 240 ml IV Total 2 ml 250 ml Output Urine Total 150 ml 400 ml 100 ml # Bowel Movements 1 Result Diagram: 10/02/16 0646 10/02/16 0646 Objective Remarks GENERAL: in nad CARDIOVASCULAR: Regular rate and rhythm without murmurs, gallops, or rubs. RESPIRATORY: Breath sounds equal bilaterally. No accessory muscle use. GASTROINTESTINAL: Abdomen soft, non-tender, nondistended. MUSCULOSKELETAL: Right foot in bandages. Sensation of the toes intact. A/P Problem List: (1) S/P CABG x 3 ICD Code: Z95.1 Status: Acute (2) Cellulitis of toe of right foot ICD Code: L03.031 Status: Acute (3) Diabetes ICD Code: E11.9 Status: Acute (4) GERD (gastroesophageal reflux disease) ICD Code: K21.9 Status: Chronic (5) Hypertension ICD Code: I10 Status: Chronic (6) Hyperlipidemia ICD Code: E78.5 Status: Chronic (7) Chronic back pain ICD Code: M54.9 Status: Chronic (8) Sepsis affecting skin ICD Code: L02.91 Status: Acute (9) Osteomyelitis of toe ICD Code: M86.9 Status: Acute Assessment and Plan 81 year old female with primary medical history of HTN, DM 2, status post CABG 2016, MRSA infection of the right hand who came into the hospital for evaluation of possible staph infection of her right great toe. Sepsis, SIRS: WBC 3.8, HR 98 Cellulitis Right Great Toe: - MRI consistent with osteomyelitis. - Toe x-ray showed soft tissue swelling of the first digit with soft tissue gas suspicious for infection. MRI shows "Osteomyelitis extensively involving the great toe distal phalanx" - CRP 9.97 on admission - Patient is status post amputation of the right hallux. Sent for pathology - Infectious diseases consulted to give opinion regarding continuing antibiotics. - Continue Vanco - Pain management with Percocet PO. - Wound Cultures growing group D strep, Blood Cultures so far negative -Pending recommendations from infectious disease for final recommendations. Hx CABG x3 HTN HLD - Continue home meds atorvastatin 40mg daily, ASA 81mg daily, - Monitor BP trend GERD - Pantoprazole daily DM2, unspecified control - Last HgA1C 02/08/16 - 13.0 - Insulin SS - Accuchecks. Monitor for hypoglycemia - HgA1C is still 13. Patient counseled on the need to have better control of diabetes. She is encouraged to work with her primary care physician and adhere to a strict diabetic diet. Neuropathy - Continue gabapentin 600mg TID Anxiety - Continue home meds clonazepam, zoloft DVT prop SCD Discharge Planning pending ID recommendation in regards to antibiotics recommendation. Problem Qualifiers (1) Diabetes: Qualified Code: E11.9 - Type 2 diabetes mellitus without complication, with long-term current use of insulin (2) GERD (gastroesophageal reflux disease): Qualified Code: K21.9 - Gastroesophageal reflux disease without esophagitis (3) Hypertension: Qualified Code: I10 - Essential hypertension (4) Hyperlipidemia: Qualified Code: E78.2 - Mixed hyperlipidemia (5) Chronic back pain: Dang Martin MD October 02, 2016 13:26
[2016-10-02 17:29] VITALS: BP 141/66; PULSE 78; RESP 18; TEMP 97.5; O2SAT 96
--- NOTE | 2016-10-02 18:43 | PD.ID.CON ---
History of Present Illness Service ID Consult Requested By Dr Crystal Reason for Consult hallux ostreomyelitis Primary Care Physician Arin Leary MD Diagnoses: History of Present Illness 81 year old diabetic female presents with right hallux infection x 3 days. Pt is Diabetic with neuropathy. MRI showed Osteomyelitis extensively involving the great toe distal phalanx sp amputation with primary closure on 09/30 Pt is growing group B sterp in culture Arterial study was normal Pt has no fever or leukocytosis, ESR elevated Review of Systems Except as stated in HPI: all other systems reviewed are Neg Past Family Social History Allergies: Coded Allergies: Darvocet-N 100 (Verified Allergy, Severe, Rash, 10/09/16) rash Demerol (Verified Allergy, Severe, Anaphylaxis, 10/09/16) anaphylactic shock Ibuprofen (Verified Allergy, Severe, Swelling, 10/09/16) Morphine (Verified Allergy, Severe, Rash, 10/09/16) Motrin (Verified Allergy, Severe, Rash, 10/09/16) rash Tylenol #3 (Verified Allergy, Severe, Rash, 10/09/16) causes rash Vibramycin (Verified Allergy, Severe, Rash, 10/09/16) rash *MDRO Multi-Drug Resistant Organism (Verified Adverse Reaction, Unknown, ) MRSA PCR screen POSITIVE-09/28/16 Past Medical History Anxiety Depression HLD DM 2 GERD Lumbar stenosis Chronic back pain CVA history MRSA infection of the right hand Past Surgical History Cardiac catheter CABG Tonsillectomy Cholecystectomy Active Ordered Medications Medications where reviewed in EMR Antibiotics Include: vancomycin Family History siblings with DM Social History No Tobacco. No ETOH. No Illicit Drugs. Physical Exam Vital Signs Vital Signs Date Time Temp Pulse Resp B/P Pulse Ox O2 Delivery O2 Flow Rate FiO2 10/02/16 17:29 97.5 78 18 141/66 96 10/02/16 14:18 20 10/02/16 13:07 97.7 78 18 126/63 94 10/02/16 11:00 94 Room Air 10/02/16 09:28 98.1 77 18 135/64 92 10/02/16 04:00 98.8 83 16 133/60 94 10/02/16 00:00 98.2 81 16 128/61 94 10/01/16 20:00 97.2 80 16 100/56 95 Physical Exam CONSTITUTIONAL/GENERAL: This is an adequately nourished patient, in no apparent distress. Comfortable OOB in a chair TUBES/LINES/DRAINS: SKIN: No jaundice, rashes, or lesions. Skin temperature appropriate. Not diaphoretic. HEAD: Atraumatic. Normocephalic. EYES: Pupils equal and round and reactive. Extraocular motions intact. No scleral icterus. No injection or drainage. Fundi not examined. ENT: Hearing grossly normal. Nose without bleeding or purulent drainage. Oral mucosae without visible erythema, exudates, masses, or lesions. Edentulous NECK: Trachea midline. Supple, nontender. CARDIOVASCULAR: Regular rate and rhythm without murmurs, gallops, or rubs. No JVD. Peripheral pulses symmetric. RESPIRATORY/CHEST: Symmetric, unlabored respirations. Clear to auscultation. Breath sounds equal bilaterally. No wheezes, rales, or rhonchi. GASTROINTESTINAL: Abdomen soft, non-tender, nondistended. No hepato-splenomegaly , or palpable masses. No guarding. Bowel sounds present. GENITOURINARY: Without palpable bladder distension. MUSCULOSKELETAL: Extremities without clubbing, cyanosis, or edema. No calf tenderness. No mottling or clubbing. L foot w/o any wounds R foot with incision sp amputated hallux Incision is well approxiamted no drainage, minimal dry blood on incision no ascending cellulitis or lymphangitis mildly enlarged non tender R inguinal lymp nodule LYMPHATICS: No palpable cervical or supraclavicular adenopathy. NEUROLOGICAL: Awake and alert. Motor and sensory grossly within normal limits. Follows commands. Cognitively sharp. Speech cl;ear Moves all extremities. PSYCHIATRIC: No obvious anxiety/depression. no apparent hallucinations or other psychotic thought process. Laboratory Laboratory Tests Test 10/02/16 06:46 White Blood Count 4.0 Red Blood Count 4.18 Hemoglobin 11.1 Hematocrit 35.0 Mean Corpuscular Volume 83.8 Mean Corpuscular Hemoglobin 26.5 Mean Corpuscular Hemoglobin 31.7 Concent Red Cell Distribution Width 12.7 Platelet Count 262 Mean Platelet Volume 7.7 Sodium Level 139 Potassium Level 4.1 Chloride Level 104 Carbon Dioxide Level 27.5 Anion Gap 8 Blood Urea Nitrogen 7 Creatinine 0.52 Estimat Glomerular Filtration 137 Rate Random Glucose 173 Calcium Level 8.5 Total Bilirubin 0.3 Aspartate Amino Transf 18 (AST/SGOT) Alanine Aminotransferase 32 (ALT/SGPT) Alkaline Phosphatase 176 Total Protein 6.2 Albumin 2.2 Result Diagram: 10/02/16 0646 10/02/16 0646 Imaging Last Impressions Foot MRI 09/28/16 0000 Signed Impressions: Service Date/Time: Wednesday, September 28, 2016 12:10 - CONCLUSION: Osteomyelitis extensively involving the great toe distal phalanx Lam Bernstein MD Toe X-Ray 09/27/16 0000 Signed Impressions: Service Date/Time: Tuesday, September 27, 2016 15:56 - CONCLUSION: Soft tissue swelling of the first digit with soft tissue gas suspicious for infection. The adjacent distal phalanx of the first digit demonstrates no definite findings to indicate osteomyelitis. Specifically, no erosions are seen. Lam Davis MD Assessment and Plan Assessment and Plan DM, neuropahty R hallux osteomyelitis GBS sp amputation No e/o large vessel PVD on arerial studies dc vancomycin start cefazoline consider shorter couse of abx if all infected bone is removed possibly d/c on oral abx Leslie Ball MD October 02, 2016 18:43
[2016-10-02 20:57] VITALS: BP 143/64; PULSE 70; RESP 20; TEMP 98.4; O2SAT 95
[2016-10-02] MEDS: INSULIN DETEMIR 100 UNITS/ML VIAL SQ SCH (21:41)
[2016-10-02] MEDS: ATORVASTATIN 40 MG TAB PO SCH (21:44)
[2016-10-02] MEDS: clonazePAM 0.5 MG TAB PO SCH (21:45)
[2016-10-02] MEDS: ceFAZolin 2 GM PREMIX 50 ML IV SCH (21:46)
[2016-10-03 00:45] VITALS: BP 91/55; PULSE 73; RESP 20; TEMP 98.4; O2SAT 95
[2016-10-03] MEDS: ceFAZolin 2 GM PREMIX 50 ML IV SCH ×2 (04:31→12:00)
[2016-10-03 05:40] VITALS: BP 112/58; PULSE 70; RESP 20; TEMP 98.1; O2SAT 94
[2016-10-03] MEDS: oxyCODONE/ACETAMINOPHEN 10 MG/325 MG TAB PO PRN ×4 (06:08→20:29)
[2016-10-03] MEDS: INSULIN ASPART SUPPLEMENTAL SCALE SQ SCH ×4 (06:10→20:32)
[2016-10-03] MEDS: ASPIRIN 81 MG CHEW TAB CHEW SCH (07:53)
[2016-10-03] MEDS: PANTOPRAZOLE SOD 40 MG DELAYED RELEASE TAB PO SCH (07:54)
[2016-10-03] MEDS: SERTRALINE HCL 50 MG TAB PO SCH (07:54)
[2016-10-03] MEDS: hydrOXYzine HCL 25 MG TAB PO PRN ×2 (07:54→19:14)
[2016-10-03] MEDS: FERROUS SULFATE 325 MG (65 MG ELEMENTAL IRON) TAB PO SCH (07:54)
[2016-10-03] MEDS: GABAPENTIN 300 MG CAP PO SCH ×2 (07:54→20:28)
[2016-10-03] MEDS: SODIUM CHLORIDE 0.9% FLUSH 10 ML FLUSH IV FLUSH SCH ×2 (07:54→20:30)
[2016-10-03 08:00] VITALS: BP 123/56; PULSE 75; RESP 18; TEMP 98.5; O2SAT 94
[2016-10-03 12:00] VITALS: BP 130/60; PULSE 77; RESP 18; TEMP 97.8; O2SAT 92
[2016-10-03] MEDS ORDERED: diphenhydrAMINE HCL 50 MG/ML VIAL IV PUSH PRN (13:30)
--- NOTE | 2016-10-03 14:53 | HHI.PR ---
Subjective Remarks Follow-up for infection Patient had an allergic reaction after given Ancef. She stated that she had itchiness all over and the nurse noted a rash on her back. Patient was given Vistaril by the nurse with improvement with the itchiness. She denies any shortness of breathing, swelling, cough. Patient also asking for an x-ray of her left toe. She stated that she is concern for infection. Although I gave patient reassurance that left great toe not infected she stated that her pl sql developer reassure her about her other toe and thought it was not infected and now is infected. Otherwise no other acute events. Patient's nurse is at the bedside. Objective Vitals Vital Signs Date Time Temp Pulse Resp B/P Pulse Ox O2 Delivery O2 Flow Rate FiO2 10/03/16 12:00 97.8 77 18 130/60 92 10/03/16 11:30 18 10/03/16 10:57 94 Room Air 10/03/16 08:00 98.5 75 18 123/56 94 10/03/16 05:40 98.1 70 20 112/58 94 10/03/16 00:45 98.4 73 20 91/55 95 10/02/16 20:57 98.4 70 20 143/64 95 10/02/16 20:30 Room Air 10/02/16 17:29 97.5 78 18 141/66 96 I/O 10/02/16 10/02/16 10/02/16 10/03/16 10/03/16 10/03/16 07:00 15:00 23:00 07:00 15:00 23:00 Intake Total 660 ml 50 ml Balance 660 ml 50 ml Intake Oral 360 ml IV Total 300 ml 50 ml # Voids 4 0 # Bowel Movements 0 Result Diagram: 10/02/1646 10/02/1646 Objective Remarks GENERAL: in nad CARDIOVASCULAR: Regular rate and rhythm without murmurs, gallops, or rubs. RESPIRATORY: Breath sounds equal bilaterally. No stridor, rhonchi, or wheezing or crackles. No accessory muscle use. GASTROINTESTINAL: Abdomen soft, non-tender, nondistended. MUSCULOSKELETAL: Right foot in bandages. Sensation of the toes intact. SKIN: Hives on patient's back. Medications and IVs Current Medications Acetaminophen/ Hydrocodone Bitart 1 tab 1 tab ONCE ONCE PO Last administered on 09/27/16 15:45; Start 09/27/16 at 15:15; Stop 09/27/16 at 15:16; Status DC Clindamycin Phosphate/Sodium Chloride (Cleocin Inj/NS Inj) 104 ml @ 208 mls/hr ONCE ONCE IV Last administered on 09/27/16 15:54; Start 09/27/16 at 15:15; Stop 09/27/16 at 15:44; Status DC Oxycodone/ Acetaminophen (Percocet 10-325 Mg) 1 tab ONCE ONCE PO Last administered on 09/27/16 17:21; Start 09/27/16 at 17:00; Stop 09/27/16 at 17:01 ; Status DC Aspirin (Aspirin Chew) 81 mg DAILY CHEW Last administered on 10/03/16 07:53; Start 09/28/16 at 09:00 Atorvastatin Calcium (Lipitor) 40 mg HS PO Last administered on 10/02/16 21:44 ; Start 09/27/16 at 21:00 Clonazepam (KlonoPIN) 0.5 mg HS PO Last administered on 10/02/16 21:45; Start 09/27/16 at 21:00 Ferrous Sulfate (Ferrous Sulfate) 325 mg DAILY PO Last administered on 07:54; Start 09/28/16 at 09:00 Gabapentin (Neurontin) 600 mg TID PO Last administered on 09/28/16 13:24; Start 09/27/16 at 18:00; Stop 09/28/16 at 15:22; Status DC Hydroxyzine HCl (Atarax) 25 mg TID PRN PO ITCHING Last administered on 07:54; Start 09/27/16 at 17:15 Meclizine HCl (Antivert) 25 mg BID PRN PO VERTIGO; Start 09/27/16 at 17:15 Ondansetron HCl (Zofran Odt) 4 mg Q6HR PRN SL Nausea/Vomiting; Start 09/27/16 at 17:15 Oxycodone/ Acetaminophen (Percocet 7.5-325 Mg) 1 tab QID PO Last administered on 09/27/16 20:04; Start 09/27/16 at 18:00; Stop 09/28/16 at 04:26; Status DC Pantoprazole Sodium (Protonix) 40 mg DAILY PO Last administered on 10/03/16 07 :54; Start 09/28/16 at 09:00 Sertraline HCl (Zoloft) 25 mg DAILY PO Last administered on 10/03/16 07:54; Start 09/28/16 at 09:00 Sodium Chloride (NS Flush) 2 ml UNSCH PRN IV FLUSH FLUSH AFTER USING IV ACCESS ; Start 09/27/16 at 17:15 Sodium Chloride (NS Flush) 2 ml BID IV FLUSH Last administered on 10/03/16 07: 54; Start 09/27/16 at 21:00 Naloxone HCl (Narcan Inj) 0.4 mg UNSCH PRN IV SEE LABEL COMMENTS; Start at 17:15 Miscellaneous 1 ea 1 ea UNSCH PRN OTHER SEE LABEL COMMENTS; Start 09/27/16 at 17:15 Piperacillin Sod/ Tazobactam Sod 50 ml @ 100 mls/hr Q6H IV Last administered on 09/30/16 13:48; Start 09/27/16 at 19:00; Stop 09/30/16 at 16:55; Status DC Vancomycin HCl 1000 mg/Sodium Chloride 250 ml @ 250 mls/hr Q24H IV Last administered on 09/29/16 21:43; Start 09/27/16 at 20:00; Stop 09/30/16 at 21:54 ; Status DC Pharmacy Profile Note (Vancomycin Consult Pharmacy) 0 ml @ 0 mls/hr UNSCH OTHER ; Start 09/27/16 at 18:15; Stop 10/02/16 at 19:18; Status DC Dextrose (D50w (Vial) Inj) 50 ml UNSCH PRN IV HYPOGLYCEMIA-SEE COMMENTS; Start 09/27/16 at 18:15 Glucagon (Glucagon Inj) 1 mg UNSCH PRN OTHER HYPOGLYCEMIA-SEE COMMENTS; Start 09/27/16 at 18:15 Insulin Aspart (NovoLOG SUPPLEMENTAL SCALE) 1 ACHS SLIDING SCALE SQ Last administered on 10/03/16 12:27; Start 09/27/16 at 21:00 Oxycodone/ Acetaminophen (Percocet 7.5-325 Mg) 1 tab Q4H PRN PO PAIN SCALE 4 TO 10 Last administered on 10/01/16 09:26; Start 09/28/16 at 04:30; Stop at 13:17; Status DC Miscellaneous Information SPECIFIC LAB TO BE DRAWN:VANCOMYCIN TROUGH DATE TO... ONCE ONCE .XX Last administered on 09/30/16 19:45; Start 09/30/16 at 19:45; Stop 09/30/16 at 19:46; Status DC Gadodiamide (Omniscan Pf Inj) 13 ml STK-MED ONCE IV Last administered on 12:45; Start 09/28/16 at 12:45; Stop 09/28/16 at 12:46; Status DC Gabapentin (Neurontin) 600 mg BID PO Last administered on 10/03/16 07:54; Start 09/29/16 at 09:00 Bupivacaine HCl (Marcaine Pf 0.5% Inj) 30 ml STK-MED ONCE .ROUTE Last administered on 09/30/16 16:08; Start 09/30/16 at 15:02; Stop 09/30/16 at 15:03 ; Status DC Midazolam HCl (Versed Inj) 2 mg STK-MED ONCE .ROUTE ; Start 09/30/16 at 15:16; Stop 09/30/16 at 15:17; Status DC Fentanyl Citrate (fentaNYL INJ) 100 mcg STK-MED ONCE .ROUTE ; Start 09/30/16 at 15:16; Stop 09/30/16 at 15:17; Status DC Lidocaine HCl (Xylocaine 1% Inj (50 ml)) 50 ml STK-MED ONCE .ROUTE Last administered on 09/30/16 16:09; Start 09/30/16 at 15:34; Stop 09/30/16 at 15:35 ; Status DC Miscellaneous Information ALL NURSING DEPARTME... UNSCH PRN .XX SEE LABEL COMMENTS; Start 09/30/16 at 16:01; Stop 10/01/16 at 16:00; Status DC Vancomycin HCl/ Sodium Chloride (Vancomycin Inj/ NS 250 ml Inj) 250 ml @ 250 mls/hr Q18H IV ; Start 10/01/16 at 14:00; Stop 10/01/16 at 14:00; Status DC Miscellaneous Information SPECIFIC LAB TO BE DRAWN:VANCO TROUGH DATE TO BE DR... ONCE ONCE .XX ; Start 10/04/16 at 13:45; Stop 10/04/16 at 13:45; Status DC Insulin Detemir 5 units 5 units HS SQ Last administered on 10/02/16 21:41; Start 10/01/16 at 21:00 Vancomycin HCl/ Sodium Chloride (Vancomycin Inj/ NS 250 ml Inj) 262.5 ml @ 262.5 mls/ hr Q24H IV Last administered on 10/02/16 12:55; Start 10/01/16 at 14:00; Stop 10/02/16 at 19:18; Status DC Oxycodone/ Acetaminophen 1 tab 1 tab Q4H PRN PO PAIN SCALE 4 TO 10 Last administered on 10/03/16 14:16; Start 10/01/16 at 13:15 Cefazolin Sodium/ Dextrose (Ancef 2 Gm Premix) 50 ml @ 150 mls/hr Q8H IV Last administered on 10/03/16 04:31; Start 10/02/16 at 20:00; Stop 10/03/16 at 13:26 ; Status DC Diphenhydramine HCl (Benadryl Inj) 25 mg Q6H PRN IV PUSH RASH/PRURITUS; Start 10/03/16 at 13:30 A/P Problem List: (1) S/P CABG x 3 ICD Code: Z95.1 Status: Acute (2) Cellulitis of toe of right foot ICD Code: L03.031 Status: Acute (3) Diabetes ICD Code: E11.9 Status: Acute (4) GERD (gastroesophageal reflux disease) ICD Code: K21.9 Status: Chronic (5) Hypertension ICD Code: I10 Status: Chronic (6) Hyperlipidemia ICD Code: E78.5 Status: Chronic (7) Chronic back pain ICD Code: M54.9 Status: Chronic (8) Sepsis affecting skin ICD Code: L02.91 Status: Acute (9) Osteomyelitis of toe ICD Code: M86.9 Status: Acute Assessment and Plan 81 year old female with primary medical history of HTN, DM 2, status post CABG 2015, MRSA infection of the right hand who came into the hospital for evaluation of possible staph infection of her right great toe. Sepsis, SIRS: WBC 3.8, HR 98 Cellulitis Right Great Toe: - MRI consistent with osteomyelitis. - Toe x-ray showed soft tissue swelling of the first digit with soft tissue gas suspicious for infection. MRI shows "Osteomyelitis extensively involving the great toe distal phalanx" - CRP 9.97 on admission - Patient is status post amputation of the right hallux. Sent for pathology - Patient was on vancomycin but that was discontinued by infectious disease. She was put on Ancef and which she had allergic reaction to. -Dealt with Dr. Ball in which she stated to discontinue Ancef and she will see the patient. - Pain management with Percocet PO. - Wound Cultures growing group D strep, Blood Cultures so far negative Urticaria/rash -Developed after getting Ancef on 10/03/16 -No signs of anaphylaxis. -Will give patient Benadryl. Will stop Ancef. Dealt with Dr. Ball who stated that she will see the patient. -We'll continue to monitor closely. Hx CABG x3 HTN HLD - Continue home meds atorvastatin 40mg daily, ASA 81mg daily, - Monitor BP trend GERD - Pantoprazole daily DM2, unspecified control - Last HgA1C 02/08/16 - 13.0 - Insulin SS - Accuchecks. Monitor for hypoglycemia - HgA1C is still 13. Patient counseled on the need to have better control of diabetes. She is encouraged to work with her primary care physician and adhere to a strict diabetic diet. Neuropathy - Continue gabapentin 600mg TID Anxiety - Continue home meds clonazepam, zoloft left great toe -No signs of infection or any concern. Per patient request she wants an x- ray. We'll get an x-ray. DVT prop SCD Discharge Planning Patient had an allergic reaction to IV Ancef. Pending recommendations from infectious disease. Problem Qualifiers (1) Diabetes: Qualified Code: E11.9 - Type 2 diabetes mellitus without complication, with long-term current use of insulin (2) GERD (gastroesophageal reflux disease): Qualified Code: K21.9 - Gastroesophageal reflux disease without esophagitis (3) Hypertension: Qualified Code: I10 - Essential hypertension (4) Hyperlipidemia: Qualified Code: E78.2 - Mixed hyperlipidemia (5) Chronic back pain: Dang Martin MD October 03, 2016 14:52
[2016-10-03] MEDS ORDERED: Vancomycin Consult Pharmacy 1 EA OTHER SCH (15:45)
[2016-10-03] MEDS ORDERED: VANCOMYCIN INJ 1,000 MG in SODIUM CHLOR 0.9% 250 ML INJ 250 ML IV ONE (15:45)
[2016-10-03 16:00] VITALS: BP 97/54; PULSE 81; RESP 18; TEMP 97; O2SAT 94
--- NOTE | 2016-10-03 16:44 | RADRPT ---
EXAM DATE/TIME: 10/03/2016 15:47 [facility] COMPARISON: No previous studies available for comparison. INDICATIONS : Left foot, great toe pain. Puncture wound. MEDICAL HISTORY : Hypertension. Diabetes mellitus type 2. SURGICAL HISTORY : CABG. ENCOUNTER: Initial ACUITY: 1 year PAIN SCORE: 4/10 LOCATION: Left foot, great toe. FINDINGS: There is no acute fracture or dislocation of the left great toe. No radiopaque foreign body is noted . 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 Osteoarthritis is also noted involving the tarsal metatarsal joints. CONCLUSION: 1. No acute fracture, dislocation or radiopaque foreign body. 2. 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 Chalrie Mckeon MD on October 03, 2016 at 16:28 Board Certified Radiologist. This report was verified electronically.
--- NOTE | 2016-10-03 17:12 | HHI.IDPN ---
Subjective Subjective Remarks I was contacted by Dr Martin 2/2 new onset hives Apparent ly pt developped highly pruritic rash ; hives were observed by Dr Martin No difficulty breathing Rash now resolved but cont to co itching No fever cefazolin was stopped Antibiotics cefazolin - d/c'd Allergies: Coded Allergies: Darvocet-N 100 (Verified Allergy, Severe, Rash, 06/06/16) rash Demerol (Verified Allergy, Severe, Anaphylaxis, 06/06/16) anaphylactic shock Ibuprofen (Verified Allergy, Severe, Swelling, 06/06/16) Morphine (Verified Allergy, Severe, Rash, 06/06/16) Motrin (Verified Allergy, Severe, Rash, 06/06/16) rash Tylenol #3 (Verified Allergy, Severe, Rash, 05/06/16) causes rash Vibramycin (Verified Allergy, Severe, Rash, 06/06/16) rash *MDRO Multi-Drug Resistant Organism (Verified Adverse Reaction, Unknown, ) MRSA PCR screen POSITIVE-09/28/16 Objective . Vital Signs Date Time Temp Pulse Resp B/P Pulse Ox O2 Delivery O2 Flow Rate FiO2 10/03/16 16:00 97.0 81 18 97/54 94 10/03/16 15:30 20 10/03/16 12:00 97.8 77 18 130/60 92 10/03/16 10:57 94 Room Air 10/03/16 08:00 98.5 75 18 123/56 94 10/03/16 05:40 98.1 70 20 112/58 94 10/03/16 00:45 98.4 73 20 91/55 95 10/02/16 20:57 98.4 70 20 143/64 95 10/02/16 20:30 Room Air 10/02/16 17:29 97.5 78 18 141/66 96 10/02/16 10/02/16 10/03/16 15:00 23:00 07:00 Intake Total 660 ml 50 ml Balance 660 ml 50 ml Intake Oral 360 ml IV Total 300 ml 50 ml # Voids 4 0 # Bowel Movements 0 . Laboratory Tests Test 10/02/16 06:46 White Blood Count 4.0 TH/MM3 Red Blood Count 4.18 MIL/MM3 Hemoglobin 11.1 GM/DL Hematocrit 35.0 % Mean Corpuscular Volume 83.8 FL Mean Corpuscular Hemoglobin 26.5 PG Mean Corpuscular Hemoglobin 31.7 % Concent Red Cell Distribution Width 12.7 % Platelet Count 262 TH/MM3 Mean Platelet Volume 7.7 FL Laboratory Tests Test 10/02/16 06:46 Sodium Level 139 MEQ/L Potassium Level 4.1 MEQ/L Chloride Level 104 MEQ/L Carbon Dioxide Level 27.5 MEQ/L Anion Gap 8 MEQ/L Blood Urea Nitrogen 7 MG/DL Creatinine 0.52 MG/DL Estimat Glomerular Filtration 137 ML/MIN Rate Random Glucose 173 MG/DL Calcium Level 8.5 MG/DL Total Bilirubin 0.3 MG/DL Aspartate Amino Transf 18 U/L (AST/SGOT) Alanine Aminotransferase 32 U/L (ALT/SGPT) Alkaline Phosphatase 176 U/L Total Protein 6.2 GM/DL Albumin 2.2 GM/DL Imaging Last Impressions Foot MRI 09/28/16 0000 Signed Impressions: Service Date/Time: Wednesday, September 28, 2016 12:10 - CONCLUSION: Osteomyelitis extensively involving the great toe distal phalanx Lam Bernstein MD Toe X-Ray 09/27/16 0000 Signed Impressions: Service Date/Time: Tuesday, September 27, 2016 15:56 - CONCLUSION: Soft tissue swelling of the first digit with soft tissue gas suspicious for infection. The adjacent distal phalanx of the first digit demonstrates no definite findings to indicate osteomyelitis. Specifically, no erosions are seen. Lam Davis MD Physical Exam CONSTITUTIONAL/GENERAL: This is an adequately nourished patient, in no apparent distress. SKIN: No jaundice, rashes, or lesions. Skin temperature appropriate. Not diaphoretic. No rash observed on back, torso, face or extremeties Back is itching EYES: Pupils equal and round and reactive. Extraocular motions intact. No scleral icterus. No injection or drainage. Fundi not examined. ENT: Hearing grossly normal. Nose without bleeding or purulent drainage. Oral mucosae without visible erythema, exudates, masses, or lesions. Edentulous CARDIOVASCULAR: Regular rate and rhythm without murmurs, gallops, or rubs. RESPIRATORY/CHEST: Symmetric, unlabored respirations. Clear to auscultation. Breath sounds equal bilaterally. No wheezes, rales, or rhonchi. GASTROINTESTINAL: Abdomen soft, non-tender, nondistended. No hepato-splenomegaly , or palpable masses. N MUSCULOSKELETAL: Extremities without clubbing, cyanosis, or edema. No calf tenderness. No mottling or clubbing. R foot with dressing in place inact NEUROLOGICAL: Awake and alert. non focal PSYCHIATRIC:calm and cooperative Assessment & Plan Remarks DM, neuropahty R hallux osteomyelitis GBS sp amputation No e/o large vessel PVD on arerial studies High grade allergic reaction to cefazolin most cw immediated IgE mediated - would avoid beta lacs at all restart vancomycin add cefazoline to allergies consider shorter couse of abx if all infected bone is removed No oral options unless lab proven sensitivity to clinda or levaquine - clinda up to >30% resistance, levaquine resistance is on rise as well; beta lac's not an option now 2/2 allergic reaction anticipate dc on IV Leslie Ramos MD October 03, 2016 17:12
[2016-10-03] MEDS: VANCOMYCIN INJ 1,250 MG in SODIUM CHLOR 0.9% 250 ML INJ 250 ML IV SCH (18:46)
[2016-10-03 20:00] VITALS: BP 108/58; PULSE 75; RESP 18; TEMP 97.9; O2SAT 93
[2016-10-03] MEDS: clonazePAM 0.5 MG TAB PO SCH (20:29)
[2016-10-03] MEDS: ATORVASTATIN 40 MG TAB PO SCH (20:29)
[2016-10-03] MEDS: INSULIN DETEMIR 100 UNITS/ML VIAL SQ SCH (20:31)
[2016-10-04] VITALS: BP 122/60; PULSE 79; RESP 18; TEMP 97.5; O2SAT 95
[2016-10-04] MEDS: oxyCODONE/ACETAMINOPHEN 10 MG/325 MG TAB PO PRN ×4 (03:28→19:17)
[2016-10-04 04:00] VITALS: BP 110/56; PULSE 71; RESP 18; TEMP 97.2; O2SAT 95
[2016-10-04] MEDS: hydrOXYzine HCL 25 MG TAB PO PRN ×2 (06:42→19:17)
[2016-10-04] MEDS: INSULIN ASPART SUPPLEMENTAL SCALE SQ SCH ×4 (07:00→22:26)
[2016-10-04 08:00] VITALS: BP 130/56; PULSE 67; RESP 16; TEMP 97.4; O2SAT 94
[2016-10-04] MEDS: PANTOPRAZOLE SOD 40 MG DELAYED RELEASE TAB PO SCH (08:07)
[2016-10-04] MEDS: ASPIRIN 81 MG CHEW TAB CHEW SCH (08:07)
[2016-10-04] MEDS: GABAPENTIN 300 MG CAP PO SCH ×2 (08:07→22:27)
[2016-10-04] MEDS: SERTRALINE HCL 50 MG TAB PO SCH (08:07)
[2016-10-04] MEDS: FERROUS SULFATE 325 MG (65 MG ELEMENTAL IRON) TAB PO SCH (08:07)
[2016-10-04] MEDS: SODIUM CHLORIDE 0.9% FLUSH 10 ML FLUSH IV FLUSH SCH ×2 (08:07→22:28)
[2016-10-04] MEDS ORDERED: PERC5TAB12 PO (10:24)
[2016-10-04] MEDS: VANCOMYCIN INJ 1,250 MG in SODIUM CHLOR 0.9% 250 ML INJ 250 ML IV SCH (11:11)
[2016-10-04 12:00] VITALS: BP 104/61; PULSE 71; RESP 18; TEMP 97.4; O2SAT 94
--- NOTE | 2016-10-04 12:55 | HHI.IDPN ---
Subjective Subjective Remarks no more itching tolerating vancomycin OK co L foot pain Antibiotics vanco Allergies: Coded Allergies: Darvocet-N 100 (Verified Allergy, Severe, Rash, 06/06/16) rash Demerol (Verified Allergy, Severe, Anaphylaxis, 06/06/16) anaphylactic shock Ibuprofen (Verified Allergy, Severe, Swelling, 06/06/16) Morphine (Verified Allergy, Severe, Rash, 06/06/16) Motrin (Verified Allergy, Severe, Rash, 06/06/16) rash Tylenol #3 (Verified Allergy, Severe, Rash, 05/06/16) causes rash Vibramycin (Verified Allergy, Severe, Rash, 06/06/16) rash *MDRO Multi-Drug Resistant Organism (Verified Adverse Reaction, Unknown, ) MRSA PCR screen POSITIVE-09/28/16 Objective . Vital Signs Date Time Temp Pulse Resp B/P Pulse Ox O2 Delivery O2 Flow Rate FiO2 10/04/16 08:59 Room Air 10/04/16 08:00 97.4 67 16 130/56 94 10/04/16 04:00 97.2 71 18 110/56 95 10/04/16 00:00 97.5 79 18 122/60 95 10/03/16 20:00 97.9 75 18 108/58 93 10/03/16 20:00 Room Air 10/03/16 16:00 97.0 81 18 97/54 94 10/03/16 15:30 20 10/03/16 10/03/16 10/04/16 15:00 23:00 07:00 Intake Total 480 ml 275 ml 240 ml Output Total 550 ml 800 ml Balance -70 ml -525 ml 240 ml Intake Oral 480 ml 240 ml IV Total 275 ml Output Urine Total 550 ml 800 ml # Voids 1 # Bowel Movements 1 0 1 . Laboratory Tests Test 10/04/16 06:27 Creatinine 0.57 MG/DL Estimat Glomerular Filtration 123 ML/MIN Rate Imaging Last Impressions Toe X-Ray 10/03/16 0000 Signed Impressions: Service Date/Time: Monday, October 03, 2016 15:47 - CONCLUSION: 1. No acute fracture, dislocation or radiopaque foreign body. 2. 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 Charlie Mckeon MD Foot MRI 09/28/16 0000 Signed Impressions: Service Date/Time: Wednesday, September 28, 2016 12:10 - CONCLUSION: Osteomyelitis extensively involving the great toe distal phalanx Lam Bernstein MD Physical Exam CONSTITUTIONAL/GENERAL: This is an adequately nourished patient, in no apparent distress. SKIN: no rash EYES: Pupils equal and round and reactive. Extraocular motions intact. No scleral icterus. No injection or drainage. Fundi not examined. ENT: Hearing grossly normal. Nose without bleeding or purulent drainage. Oral mucosae without visible erythema, exudates, masses, or lesions. Edentulous CARDIOVASCULAR: Regular rate and rhythm without murmurs, gallops, or rubs. RESPIRATORY/CHEST: Symmetric, unlabored respirations. Clear to auscultation. Breath sounds equal bilaterally. No wheezes, rales, or rhonchi. GASTROINTESTINAL: Abdomen soft, non-tender, nondistended. No hepato-splenomegaly , or palpable masses. N MUSCULOSKELETAL: Extremities without clubbing, cyanosis, or edema. No calf tenderness. No mottling or clubbing. R hallux incision is well approximated min dry drainage on dressing no ascending cellulits + ecfhymosis NEUROLOGICAL: Awake and alert. non focal PSYCHIATRIC:calm and cooperative Assessment & Plan Remarks DM, neuropahty R hallux osteomyelitis GBS sp amputation No e/o large vessel PVD on arerial studies High grade allergic reaction to cefazolin most cw immediated IgE mediated - would avoid beta lacs at all restart vancomycin add cefazoline to allergies consider shorter couse of abx if all infected bone is removed No oral options unless lab proven sensitivity to clinda or levaquine - P - clinda up to >30% resistance, levaquine resistance is on rise as well; beta lac's not an option now 2/2 allergic reaction anticipate dc on IV vanco x 4 wks; can be switched to po abx later with proven sensitivities OK to dc home Leslie Ball MD October 04, 2016 12:55
--- NOTE | 2016-10-04 12:58 | HHI.FF ---
Infusion Therapy Location of Infusion Therapy: [facility] IV Infusion Order Patient Information Patient Weight 63.9 kg Diagnosis: Coded Allergies: Darvocet-N 100 (Verified Allergy, Severe, Rash, 06/06/16) rash Demerol (Verified Allergy, Severe, Anaphylaxis, 06/06/16) anaphylactic shock Ibuprofen (Verified Allergy, Severe, Swelling, 06/06/16) Morphine (Verified Allergy, Severe, Rash, 06/06/16) Motrin (Verified Allergy, Severe, Rash, 06/06/16) rash Tylenol #3 (Verified Allergy, Severe, Rash, 05/06/16) causes rash Vibramycin (Verified Allergy, Severe, Rash, 06/06/16) rash *MDRO Multi-Drug Resistant Organism (Verified Adverse Reaction, Unknown, ) MRSA PCR screen POSITIVE-09/28/16 Administer Medication Vancomycin 1.5 grams IV q 24 hours Start Treatment: October 04, 2016 Stop Treatment: Nov 01, 2016 Additional Information Venous access: PICC Line Additional Instructions [x] Peripheral flush and dressing changes per protocol [x] Implanted port and central online content developer: * Implanted port: 10 ml Normal Saline followed by 5 ml Heparin 100 units/ml Heparin flush after each use and monthly to maintain. [] May leave port accessed during therapy. [] May leave peripheral site accessed for duration of therapy. [x] If patient has SOB or respiratory distress, check oxygen saturation. If less than 90% or clinical signs of respiratory distress, administer oxygen at 2 L/min. via nasal cannula and notify physician. [x] Anaphylaxis/Reaction orders: * Stop infusion. * Keep IV line open with saline flush. * Notify physician. * Monitor vital signs every 15 minutes until symptoms resolve. * Check Oxygen saturation; Oxygen at 2 L/min. via nasal cannula if less than 90% or clinical signs of respiratory distress. * Administer diphenhydramine (Benadryl) 25 mg IV STAT, (unless patient has received as pre-med). May repeat once, if necessary. * Solu-Cortef 250 mg IVP over 30-60 seconds, use 100 mg vials for each dissolution. * Epinephrine (1mg/1 ml) 0.3 mg subcutaneously or IVP now with any signs of respiratory distress. * Check with physician for new additional pre-med orders if patient is re- challenged or re-treated. [x] May remove PICC line when treatment complete, after confirming with Physician. [x] If the patient is admitted to the hospital, the ED, or transferred via [facility] , complete transfer form including medication reconciliation order sheet. Laboratory Tests Weekly Labs: CBC w/diff, Creatinine, SED Rate, Vancomycin Trough Leslie Ball MD October 04, 2016 12:58
[2016-10-04] MEDS ORDERED: EPIN1INJ21 IV PUSH (12:59)
[2016-10-04] MEDS ORDERED: EPIN1INJ21 SQ (12:59)
[2016-10-04] MEDS ORDERED: VANC10IN IV (12:59)
[2016-10-04] MEDS ORDERED: SOLU250I IV PUSH (12:59)
--- NOTE | 2016-10-04 13:04 | HHI.PR ---
Subjective Remarks Follow-up for infection. Patient is no complaints. Deny any itchiness, rash, shortness of breathing or cough. She stated she is doing well. Objective Vitals Vital Signs Date Time Temp Pulse Resp B/P Pulse Ox O2 Delivery O2 Flow Rate FiO2 10/04/16 12:59 Room Air 10/04/16 08:59 Room Air 10/04/16 08:00 97.4 67 16 130/56 94 10/04/16 04:00 97.2 71 18 110/56 95 10/04/16 00:00 97.5 79 18 122/60 95 10/03/16 20:00 97.9 75 18 108/58 93 10/03/16 20:00 Room Air 10/03/16 16:00 97.0 81 18 97/54 94 10/03/16 15:30 20 I/O 10/03/16 10/03/16 10/03/16 10/04/16 10/04/16 10/04/16 07:00 15:00 23:00 07:00 15:00 23:00 Intake Total 50 ml 480 ml 275 ml 240 ml Output Total 550 ml 800 ml Balance 50 ml -70 ml -525 ml 240 ml Intake Oral 480 ml 240 ml IV Total 50 ml 275 ml Output Urine Total 550 ml 800 ml # Voids 0 1 # Bowel Movements 1 0 1 Result Diagram: 10/02/16 0646 10/04/16 0627 Objective Remarks GENERAL: in nad CARDIOVASCULAR: Regular rate and rhythm without murmurs, gallops, or rubs. RESPIRATORY: Breath sounds equal bilaterally. No stridor, rhonchi, or wheezing or crackles. No accessory muscle use. GASTROINTESTINAL: Abdomen soft, non-tender, nondistended. MUSCULOSKELETAL: Right foot in bandages. Sensation of the toes intact. SKIN: Hives on patient's back. Medications and IVs Current Medications Acetaminophen/ Hydrocodone Bitart 1 tab 1 tab ONCE ONCE PO Last administered on 09/27/16 15:45; Start 09/27/16 at 15:15; Stop 09/27/16 at 15:16; Status DC Clindamycin Phosphate/Sodium Chloride (Cleocin Inj/NS Inj) 104 ml @ 208 mls/hr ONCE ONCE IV Last administered on 09/27/16 15:54; Start 09/27/16 at 15:15; Stop 09/27/16 at 15:44; Status DC Oxycodone/ Acetaminophen (Percocet 10-325 Mg) 1 tab ONCE ONCE PO Last administered on 09/27/16 17:21; Start 09/27/16 at 17:00; Stop 09/27/16 at 17:01 ; Status DC Aspirin (Aspirin Chew) 81 mg DAILY CHEW Last administered on 10/04/16 08:07; Start 09/28/16 at 09:00 Atorvastatin Calcium (Lipitor) 40 mg HS PO Last administered on 10/03/16 20:29 ; Start 09/27/16 at 21:00 Clonazepam (KlonoPIN) 0.5 mg HS PO Last administered on 10/03/16 20:29; Start 09/27/16 at 21:00 Ferrous Sulfate (Ferrous Sulfate) 325 mg DAILY PO Last administered on 08:07; Start 09/28/16 at 09:00 Gabapentin (Neurontin) 600 mg TID PO Last administered on 09/28/16 13:24; Start 09/27/16 at 18:00; Stop 09/28/16 at 15:22; Status DC Hydroxyzine HCl (Atarax) 25 mg TID PRN PO ITCHING Last administered on 06:42; Start 09/27/16 at 17:15 Meclizine HCl (Antivert) 25 mg BID PRN PO VERTIGO; Start 09/27/16 at 17:15 Ondansetron HCl (Zofran Odt) 4 mg Q6HR PRN SL Nausea/Vomiting; Start 09/27/16 at 17:15 Oxycodone/ Acetaminophen (Percocet 7.5-325 Mg) 1 tab QID PO Last administered on 09/27/16 20:04; Start 09/27/16 at 18:00; Stop 09/28/16 at 04:26; Status DC Pantoprazole Sodium (Protonix) 40 mg DAILY PO Last administered on 10/04/16 08 :07; Start 09/28/16 at 09:00 Sertraline HCl (Zoloft) 25 mg DAILY PO Last administered on 10/04/16 08:07; Start 09/28/16 at 09:00 Sodium Chloride (NS Flush) 2 ml UNSCH PRN IV FLUSH FLUSH AFTER USING IV ACCESS ; Start 09/27/16 at 17:15 Sodium Chloride (NS Flush) 2 ml BID IV FLUSH Last administered on 10/04/16 08: 07; Start 09/27/16 at 21:00 Naloxone HCl (Narcan Inj) 0.4 mg UNSCH PRN IV SEE LABEL COMMENTS; Start at 17:15 Miscellaneous 1 ea 1 ea UNSCH PRN OTHER SEE LABEL COMMENTS; Start 09/27/16 at 17:15 Piperacillin Sod/ Tazobactam Sod 50 ml @ 100 mls/hr Q6H IV Last administered on 09/30/16 13:48; Start 09/27/16 at 19:00; Stop 09/30/16 at 16:55; Status DC Vancomycin HCl 1000 mg/Sodium Chloride 250 ml @ 250 mls/hr Q24H IV Last administered on 09/29/16 21:43; Start 09/27/16 at 20:00; Stop 09/30/16 at 21:54 ; Status DC Pharmacy Profile Note (Vancomycin Consult Pharmacy) 0 ml @ 0 mls/hr UNSCH OTHER ; Start 09/27/16 at 18:15; Stop 10/02/16 at 19:18; Status DC Dextrose (D50w (Vial) Inj) 50 ml UNSCH PRN IV HYPOGLYCEMIA-SEE COMMENTS; Start 09/27/16 at 18:15 Glucagon (Glucagon Inj) 1 mg UNSCH PRN OTHER HYPOGLYCEMIA-SEE COMMENTS; Start 09/27/16 at 18:15 Insulin Aspart (NovoLOG SUPPLEMENTAL SCALE) 1 ACHS SLIDING SCALE SQ Last administered on 10/04/16 11:51; Start 09/27/16 at 21:00 Oxycodone/ Acetaminophen (Percocet 7.5-325 Mg) 1 tab Q4H PRN PO PAIN SCALE 4 TO 10 Last administered on 10/01/16 09:26; Start 09/28/16 at 04:30; Stop at 13:17; Status DC Miscellaneous Information SPECIFIC LAB TO BE DRAWN:VANCOMYCIN TROUGH DATE TO... ONCE ONCE .XX Last administered on 09/30/16 19:45; Start 09/30/16 at 19:45; Stop 09/30/16 at 19:46; Status DC Gadodiamide (Omniscan Pf Inj) 13 ml STK-MED ONCE IV Last administered on 12:45; Start 09/28/16 at 12:45; Stop 09/28/16 at 12:46; Status DC Gabapentin (Neurontin) 600 mg BID PO Last administered on 10/04/16 08:07; Start 09/29/16 at 09:00 Bupivacaine HCl (Marcaine Pf 0.5% Inj) 30 ml STK-MED ONCE .ROUTE Last administered on 09/30/16 16:08; Start 09/30/16 at 15:02; Stop 09/30/16 at 15:03 ; Status DC Midazolam HCl (Versed Inj) 2 mg STK-MED ONCE .ROUTE ; Start 09/30/16 at 15:16; Stop 09/30/16 at 15:17; Status DC Fentanyl Citrate (fentaNYL INJ) 100 mcg STK-MED ONCE .ROUTE ; Start 09/30/16 at 15:16; Stop 09/30/16 at 15:17; Status DC Lidocaine HCl (Xylocaine 1% Inj (50 ml)) 50 ml STK-MED ONCE .ROUTE Last administered on 09/30/16 16:09; Start 09/30/16 at 15:34; Stop 09/30/16 at 15:35 ; Status DC Miscellaneous Information ALL NURSING DEPARTME... UNSCH PRN .XX SEE LABEL COMMENTS; Start 09/30/16 at 16:01; Stop 10/01/16 at 16:00; Status DC Vancomycin HCl/ Sodium Chloride (Vancomycin Inj/ NS 250 ml Inj) 250 ml @ 250 mls/hr Q18H IV ; Start 10/01/16 at 14:00; Stop 10/01/16 at 14:00; Status DC Miscellaneous Information SPECIFIC LAB TO BE DRAWN:VANCO TROUGH DATE TO BE DREmiliano ONCE ONCE .XX ; Start 10/04/16 at 13:45; Stop 10/04/16 at 13:45; Status DC Insulin Detemir 5 units 5 units HS SQ Last administered on 10/03/16 20:31; Start 10/01/16 at 21:00 Vancomycin HCl/ Sodium Chloride (Vancomycin Inj/ NS 250 ml Inj) 262.5 ml @ 262.5 mls/ hr Q24H IV Last administered on 10/02/16 12:55; Start 10/01/16 at 14:00; Stop 10/02/16 at 19:18; Status DC Oxycodone/ Acetaminophen 1 tab 1 tab Q4H PRN PO PAIN SCALE 4 TO 10 Last administered on 10/04/16 11:11; Start 10/01/16 at 13:15 Cefazolin Sodium/ Dextrose (Ancef 2 Gm Premix) 50 ml @ 150 mls/hr Q8H IV Last administered on 10/03/16 04:31; Start 10/02/16 at 20:00; Stop 10/03/16 at 13:26 ; Status DC Diphenhydramine HCl 25 mg 25 mg Q6H PRN IV PUSH RASH/PRURITUS; Start 10/03/16 at 13:30 Vancomycin HCl 1000 mg/Sodium Chloride 250 ml @ 250 mls/hr ONCE ONCE IV ; Start 10/03/16 at 15:45; Stop 10/03/16 at 16:44; Status UNV Pharmacy Profile Note 0 ml @ 0 mls/hr UNSCH OTHER ; Start 10/03/16 at 15:45 Vancomycin HCl/ Sodium Chloride (Vancomycin Inj/ NS 250 ml Inj) 262.5 ml @ 250 mls/hr Q18H IV Last administered on 10/04/16 11:11; Start 10/03/16 at 17:00 Miscellaneous Information SPECIFIC LAB TO BE DRAWN:VANCOMYCIN TROUGH DATE TO... ONCE ONCE .XX ; Start 10/05/16 at 04:45; Stop 10/05/16 at 04:46 A/P Problem List: (1) S/P CABG x 3 ICD Code: Z95.1 Status: Acute (2) Cellulitis of toe of right foot ICD Code: L03.031 Status: Acute (3) Diabetes ICD Code: E11.9 Status: Acute (4) GERD (gastroesophageal reflux disease) ICD Code: K21.9 Status: Chronic (5) Hypertension ICD Code: I10 Status: Chronic (6) Hyperlipidemia ICD Code: E78.5 Status: Chronic (7) Chronic back pain ICD Code: M54.9 Status: Chronic (8) Sepsis affecting skin ICD Code: L02.91 Status: Acute (9) Osteomyelitis of toe ICD Code: M86.9 Status: Acute Assessment and Plan 81 year old female with primary medical history of HTN, DM 2, status post CABG 2016, MRSA infection of the right hand who came into the hospital for evaluation of possible staph infection of her right great toe. Sepsis, SIRS: WBC 3.8, HR 98 Cellulitis Right Great Toe: - MRI consistent with osteomyelitis. - Toe x-ray showed soft tissue swelling of the first digit with soft tissue gas suspicious for infection. MRI shows "Osteomyelitis extensively involving the great toe distal phalanx" - CRP 9.97 on admission - Patient is status post amputation of the right hallux. Sent for pathology - Patient was on vancomycin but that was discontinued by infectious disease. She was put on Ancef and which she had allergic reaction to. -Patient had allergic reaction to Ancef so that was discontinue on 10/03/16 and she was started on vancomycin - Wound Cultures growing group D strep, Blood Cultures so far negative -Dealt with Dr. Ball over phone today and recommend vancomycin. She stated that patient will need a PICC line placed. Ordered placed for PICC line. Urticaria/rash -Developed after getting Ancef on 10/03/16 -No signs of anaphylaxis. -Resolved. Hx CABG x3 HTN HLD - Continue home meds atorvastatin 40mg daily, ASA 81mg daily, - Monitor BP trend GERD - Pantoprazole daily DM2, unspecified control - Last HgA1C 02/08/16 - 13.0 - Insulin SS - Accuchecks. Monitor for hypoglycemia - HgA1C is still 13. Patient counseled on the need to have better control of diabetes. She is encouraged to work with her primary care physician and adhere to a strict diabetic diet. Neuropathy - Continue gabapentin 600mg TID Anxiety - Continue home meds clonazepam, zoloft left great toe -No signs of infection or any concern. Per patient request she wants an x- ray. X-ray shows osteoarthritis. DVT prop SCD Discharge Planning Dealt with Dr. Ball over the phone and recommended vancomycin for treatment of osteomyelitis due to allergic reaction to Ancef. Will place PICC line today. Dealt with case management. Once infusion is set up patient can be discharge. Problem Qualifiers (1) Diabetes: Qualified Code: E11.9 - Type 2 diabetes mellitus without complication, with long-term current use of insulin (2) GERD (gastroesophageal reflux disease): Qualified Code: K21.9 - Gastroesophageal reflux disease without esophagitis (3) Hypertension: Qualified Code: I10 - Essential hypertension (4) Hyperlipidemia: Qualified Code: E78.2 - Mixed hyperlipidemia (5) Chronic back pain: Dang Martin MD October 04, 2016 13:04
[2016-10-04] MEDS ORDERED: PHARMACY ORDERED LAB ONE (13:45)
--- NOTE | 2016-10-04 14:11 | HHI.FF ---
Face to Face Verification Diagnosis: (1) DM (diabetes mellitus) (2) Osteomyelitis of toe (3) Hyperlipidemia (4) GERD (gastroesophageal reflux disease) (5) Hypertension Physical Therapy Order: Evaluate and Treat, Improve ambulation, Strength and gait training Home Health Nursing Order: Medical education Signs/symptoms of disease process Diabetic education Medication education-adverse effect Wound care and dressing changes Nursing assessment with vital signs IV medication administration I have seen patient Bernadette Arias on 10/04/16. My clinical findings support the need for the requested home health care services because: Ltd mobility - disease progression High risk of falls Infection w/ risk of complications Injectable med education/admin I certify that my clinical findings support that this patient is homebound because: Unsteady gait/balance Dang Martin MD October 04, 2016 14:11
[2016-10-04] MEDS ORDERED: SODIUM CHLORIDE 0.9% FLUSH 10 ML FLUSH IV FLUSH PRN (15:00)
--- NOTE | 2016-10-04 15:05 | RADRPT ---
EXAM DATE/TIME: 10/04/2016 14:35 [facility] COMPARISON: CHEST SINGLE AP, August 09, 2016, 22:55. INDICATIONS : Post PICC placement. MEDICAL HISTORY : Hypertension. Diabetes mellitus type II. SURGICAL HISTORY : CABG. ENCOUNTER: Initial ACUITY: 1 day PAIN SCORE: 0/10 LOCATION: Right chest FINDINGS: Underinflated AP view of the chest demonstrates a normal-sized cardiac silhouette in this patient pos t median sternotomy. Right upper extremity PICC distal tip is in the SVC. Lungs are underinflated wit h atelectasis at the bases. No pneumothorax or effusion is seen. CONCLUSION: 1. Right upper extremity PICC distal tip in appropriate position with tip in the SVC. 2. Persistent low lung volumes with bibasilar atelectasis. Lam Davis MD on October 04, 2016 at 15:02 Board Certified Radiologist. This report was verified electronically.
[2016-10-04 16:00] VITALS: BP 127/67; PULSE 75; RESP 18; TEMP 98.6; O2SAT 94
[2016-10-04 20:00] VITALS: BP 120/68; PULSE 85; RESP 16; TEMP 98; O2SAT 93
[2016-10-04] MEDS: INSULIN DETEMIR 100 UNITS/ML VIAL SQ SCH (22:25)
[2016-10-04] MEDS: ATORVASTATIN 40 MG TAB PO SCH (22:27)
[2016-10-04] MEDS: clonazePAM 0.5 MG TAB PO SCH (22:27)
[2016-10-05] VITALS: BP 124/64; PULSE 80; RESP 18; TEMP 98.1; O2SAT 94
[2016-10-05] MEDS ORDERED: PHARMACY ORDERED LAB ONE (04:45)
[2016-10-05] MEDS: hydrOXYzine HCL 25 MG TAB PO PRN ×2 (05:06→17:10)
[2016-10-05] MEDS: VANCOMYCIN INJ 1,250 MG in SODIUM CHLOR 0.9% 250 ML INJ 250 ML IV SCH (05:08)
[2016-10-05] MEDS: oxyCODONE/ACETAMINOPHEN 10 MG/325 MG TAB PO PRN ×4 (05:08→17:10)
[2016-10-05 06:07] VITALS: BP 159/70; PULSE 79; RESP 18; TEMP 97.8; O2SAT 97
[2016-10-05] MEDS: INSULIN ASPART SUPPLEMENTAL SCALE SQ SCH ×3 (06:22→16:46)
[2016-10-05 08:00] VITALS: BP 121/60; PULSE 72; RESP 18; TEMP 97.9; O2SAT 97
[2016-10-05] MEDS ORDERED: SODIUM CHLORIDE 0.9% FLUSH 10 ML FLUSH IV FLUSH SCH (09:00)
[2016-10-05] MEDS: SODIUM CHLORIDE 0.9% FLUSH 10 ML FLUSH IV FLUSH SCH (09:00)
[2016-10-05] MEDS: SERTRALINE HCL 50 MG TAB PO SCH (09:02)
[2016-10-05] MEDS: FERROUS SULFATE 325 MG (65 MG ELEMENTAL IRON) TAB PO SCH (09:02)
[2016-10-05] MEDS: ASPIRIN 81 MG CHEW TAB CHEW SCH (09:02)
[2016-10-05] MEDS: PANTOPRAZOLE SOD 40 MG DELAYED RELEASE TAB PO SCH (09:02)
[2016-10-05] MEDS: GABAPENTIN 300 MG CAP PO SCH (09:02)
[2016-10-05 12:00] VITALS: BP 124/57; PULSE 80; RESP 18; TEMP 97; O2SAT 97
--- NOTE | 2016-10-05 14:53 | HHI.DS ---
Discharge Summary Admission Date September 27, 2016 at 17:06 Discharge Date: October 05, 2016 Admitting Diagnosis right great toe cellulitis, diabetic (1) Osteomyelitis of toe ICD Code: M86.9 Diagnosis: Principal (2) S/P CABG x 3 ICD Code: Z95.1 Diagnosis: Secondary (3) Cellulitis of toe of right foot ICD Code: L03.031 Diagnosis: Principal (4) Diabetes ICD Code: E11.9 Diagnosis: Secondary (5) GERD (gastroesophageal reflux disease) ICD Code: K21.9 Diagnosis: Secondary (6) Hypertension ICD Code: I10 Diagnosis: Secondary (7) Hyperlipidemia ICD Code: E78.5 Diagnosis: Secondary (8) Chronic back pain ICD Code: M54.9 Diagnosis: Secondary (9) Sepsis affecting skin ICD Code: L02.91 Diagnosis: Principal Procedures See hospital course Brief History - From Admission Written by Melisa Manzano, acting as scribe for Dr. Crystal on 09/27/16 at 17: 24. Patient is an 81 year old female with primary medical history of HTN, DM 2, status post CABG 2016, MRSA infection of the right hand who came into the hospital for evaluation of possible staph infection of her right great toe. Patient states she had a malfunction of her bathroom wherein she turned on her shower in the tub and feces had come out and got into her skin and feet. States she is being treated for a staph infection on her skin - facial/lip area, forehead and scalp- had been improved but have noticed that her right great toe is getting worse, it has been swollen and red for about 3 days. She does not know what antibiotic she was given but has completed it, when she noticed her toe is still not better. Patient lives in an apartment which she states she has been having lots of issues. She has her bilateral toes "poked" with sharp stuff from the carpet. The left toe wound healed but the right toe wound continues to be open before it got "soaked in the tub with feces." States it has a "foul smell" today and more painful. Pain rated 8/10, achy, nonradiating , constant, not aggravated by anything, relieved with pain management. States she also felt her right leg was tight and hurting few days ago, now has subsided. Reports fevers and chills, associated with some nausea without vomiting. Denies chest pain, dizziness, palpitations, headaches. Denies diarrhea, abdominal cramping, dysuria. Denies SOB/ dyspnea. CBC/BMP: 10/02/16 0646 10/04/16 0627 Significant Findings Laboratory Tests Test 10/05/16 05:00 Vancomycin Level Trough 10.1 MCG/ML (5.0-10.0) Imaging Last Impressions Chest X-Ray 10/04/16 0000 Signed Impressions: Service Date/Time: Tuesday, October 04, 2016 14:35 - CONCLUSION: 1. Right upper extremity PICC distal tip in appropriate position with tip in the SVC. 2. Persistent low lung volumes with bibasilar atelectasis. Lam Davis MD Toe X-Ray 10/03/16 0000 Signed Impressions: Service Date/Time: Monday, October 03, 2016 15:47 - CONCLUSION: 1. No acute fracture, dislocation or radiopaque foreign body. 2. 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 Charlie Mckeon MD Foot MRI 09/28/16 0000 Signed Impressions: Service Date/Time: Wednesday, September 28, 2016 12:10 - CONCLUSION: Osteomyelitis extensively involving the great toe distal phalanx Lam Bernstein MD PE at Discharge GENERAL: in nad CARDIOVASCULAR: Regular rate and rhythm without murmurs, gallops, or rubs. RESPIRATORY: Breath sounds equal bilaterally. No stridor, rhonchi, or wheezing or crackles. No accessory muscle use. GASTROINTESTINAL: Abdomen soft, non-tender, nondistended. MUSCULOSKELETAL: Right foot in bandages. Sensation of the toes intact. SKIN: Hives on patient's back. Pt update on day of discharge Follow-up for infection. Patient stated that she is moving more now she feels sharp pain in her toe. Otherwise she has no other complaints. She remains afebrile and her nephew is at the bedside. Hospital Course 81 year old female with primary medical history of HTN, DM 2, status post CABG 2016, MRSA infection of the right hand who came into the hospital for evaluation of possible staph infection of her right great toe. Sepsis, SIRS: WBC 3.8, HR 98 Cellulitis Right Great Toe: - Patient had MRI which showed osteomyelitis. - Toe x-ray showed soft tissue swelling of the first digit with soft tissue gas suspicious for infection. MRI shows "Osteomyelitis extensively involving the great toe distal phalanx" - CRP 9.97 on admission -She had a amputation of her right helix by grain packer. That was sent for pathology. - Patient was on vancomycin treated empirically but that was discontinued by infectious disease. She was put on Ancef and which she had allergic reaction to. -Patient had allergic reaction to Ancef so that was discontinue on 10/03/16 and she was started on vancomycin - Wound Cultures growing group D strep, Blood Cultures so far negative -PICC line was place in which patient was discharged home with vancomycin for 4 weeks pending final sensitivity to determine if patient can switch to oral antibiotics. -Pain control Percocet. Urticaria/rash -Developed after getting Ancef on 10/03/16 -No signs of anaphylaxis. -Resolved. Hx CABG x3 HTN HLD - Continue home meds atorvastatin 40mg daily, ASA 81mg daily, - Monitor BP trend GERD - Pantoprazole daily DM2, unspecified control - Last HgA1C 02/08/16 - 13.0 - Insulin SS - Accuchecks. Monitor for hypoglycemia - HgA1C is still 13. Patient counseled on the need to have better control of diabetes. She is encouraged to work with her primary care physician and adhere to a strict diabetic diet. Neuropathy - Continue gabapentin 600mg TID Anxiety - Continue home meds clonazepam, zoloft Pt Condition on Discharge: Good Discharge Disposition: Disch w/ Home Health Serv Discharge Time: <= 30 minutes Discharge Instructions DIET: Follow Instructions for: Heart Healthy Diet, Diabetic Diet Activities you can perform: Regular-No Restrictions Follow up Referrals: PCP Follow-up - 1 Week Podiatry with Peter Rosas DPM New Medications: Epinephrine Inj (Epinephrine Inj) 1 Mg/Ml Inj 0.3 MG IV PUSH ONCE PRN ALLERGIC REACTION #1 VIAL Epinephrine Inj (Epinephrine Inj) 1 Mg/Ml Inj 0.3 MG SQ ONCE Give with any signs of respiratory distress. PRN ALLERGIC REACTION #1 VIAL Hydrocortisone Inj (Solu-Cortef Inj) 250 Mg Inj 250 MG IV PUSH ONCE Give over 30-60 seconds. PRN ALLERGIC REACTION #1 Ref 0 VIAL Oxycodone-Acetaminophen (Percocet) 5-325 mg Tab 1-2 TAB PO Q6H PRN PAIN #20 Ref 0 TAB Vancomycin Inj (Vancomycin Inj) 10 Gm Inj 1500 MG IV DAILY Infection Days 28 VIAL Continued Medications: Aspirin (Aspirin) 81 Mg Chew 81 MG CHEW DAILY Ref 0 TAB Atorvastatin (Lipitor) 40 Mg Tab 40 MG PO HS Cholesterol Management #30 Ref 0 TAB Clonazepam (Clonazepam) 0.5 Mg Tab 0.5 MG PO HS #60 Ref 0 TAB Ferrous Sulfate (Ferrous Sulfate) 325 Mg Tab 325 MG PO DAILY Nutritional Supplement #30 Ref 0 TAB Gabapentin (Gabapentin) 600 Mg Tab 600 MG PO TID #90 Ref 0 TAB Glyburide (Glyburide) 5 Mg Tab 5 MG PO DAILY Take with meals at the same time each day Blood Sugar Management # 30 Ref 0 TAB Hydroxyzine HCl (Hydroxyzine HCl) 25 Mg Tab 25 MG PO TID PRN ITCHING Ref 0 TAB Meclizine (Meclizine) 25 Mg Tab 25 MG PO BID PRN VERTIGO Ref 0 TAB Ondansetron Odt (Zofran Odt) 4 Mg Tab 4 MG SL Q6HR PRN Nausea/Vomiting #7 Ref 0 TAB Pantoprazole (Protonix) 40 Mg Tab 40 MG PO DAILY Reflux #30 Ref 0 TAB Sertraline (Sertraline) 25 Mg Tab 25 MG PO DAILY #30 Ref 0 TAB Discontinued Medications: Oxycodone-Acetaminophen (Percocet) 7.5-325 mg Tab 1 TAB PO QID Pain Management Ref 0 TAB Dang Martin MD October 05, 2016 14:53
[2016-10-05 16:00] VITALS: BP 93/51; PULSE 75; RESP 18; TEMP 97.9; O2SAT 97
[2016-10-05] MEDS ORDERED: VANCOMYCIN INJ 1,250 MG in SODIUM CHLOR 0.9% 250 ML INJ 250 ML IV SCH (18:00)
[2016-10-07] MEDS ORDERED: PHARMACY ORDERED LAB ONE (05:45)
== END 2016-10-05 19:07 | disposition home or self-care (01) | DRG 854 ==
LOC: NEPE 13:59 → NEDH 16:51 → OBSVTOIN 17:06 → N04A 19:31
PROVIDERS: ADMIT Family Medicine; ATTEND Family Medicine
PROC: 0Y6P0Z0 Detachment at Right 1st Toe, Complete, Open Approach (ICD-10-PCS; principal; 2016-09-30 15:28)
PROC: 02HV33Z Insertion of Infusion Device into Superior Vena Cava, Percutaneous Approach (ICD-10-PCS; 2016-10-04)
DX: A41.9 Sepsis, unspecified organism (principal); M86.9 Osteomyelitis, unspecified; E11.40 Type 2 diabetes mellitus with diabetic neuropathy, unspecified; E11.69 Type 2 diabetes mellitus with other specified complication; I10 Essential (primary) hypertension; L03.031 Cellulitis of right toe; F32.9 Major depressive disorder, single episode, unspecified; F41.9 Anxiety disorder, unspecified; K21.9 Gastro-esophageal reflux disease without esophagitis; L50.0 Allergic urticaria; I25.10 Atherosclerotic heart disease of native coronary artery without angina pectoris; J45.909 Unspecified asthma, uncomplicated; G89.29 Other chronic pain; B95.62 Methicillin resistant Staphylococcus aureus infection as the cause of diseases classified elsewhere; E78.2 Mixed hyperlipidemia; B95.2 Enterococcus as the cause of diseases classified elsewhere; Z86.73 Personal history of transient ischemic attack (TIA), and cerebral infarction without residual deficits; Z95.1 Presence of aortocoronary bypass graft; Z79.84 Long term (current) use of oral hypoglycemic drugs
CPT/HCPCS: 36569; 71010; 73660; 73720; 76937; 80048; 80053; 80202; 82565; 82948; 83036; 83605; 83735; 85007; 85025; 85027; 85652; 86140; 86403; 87040; 87070; 87205; 87641; 88305; 88311; 93922; 96374; A9579; J0690; J1642; J1815; J2250; J2370; J2543; J3010; J3370; J7050; L3260

== ENCOUNTER 2016-10-09 12:49 | Emergency (ER) | payer MEDICARE, OTHER ==
[~2016-10-09] VITALS: Ht 157.5 cm; Wt 70.0 kg
[~2016-10-09 12:49] MED LIST changes: +EPIN1INJ21 IV PUSH; +EPIN1INJ21 SQ; +PERC5TAB12 PO; -PLAV75TA29 PO; -SENN8.6T5 PO; +SOLU250I IV PUSH; +VANC10IN IV
[2016-10-09 12:51] VITALS: BP 139/60; PULSE 90; RESP 24; TEMP 98.8; O2SAT 96
--- NOTE | 2016-10-09 13:27 | PD ---
Physical Exam Date Seen by Provider: Oct 09, 2016 Time Seen by Provider: 13:24 Narrative 81 y/o female here with question of blocked PICC line. Patient receiving home IV for recent toe amputation. Data Data Last Documented VS Vital Signs Date Time Temp Pulse Resp B/P Pulse Ox O2 Delivery O2 Flow Rate FiO2 10/09/16 12:51 98.8 90 24 139/60 96 Room Air MDM Medical Record Reviewed: Yes Supervised Visit with IRIS: Yes Narrative Course PICC Line flushed in triage by nursing staff. Condition: Stable Asher Ibrahim Oct 09, 2016 13:27
== END 2016-10-09 13:53 | disposition left against medical advice (07) ==
LOC: NED 12:49
DX: Z00.00 Encounter for general adult medical examination without abnormal findings (principal)
CPT/HCPCS: 99281

== ENCOUNTER 2016-12-31 11:20 | Emergency (ER) | payer MEDICARE, OTHER ==
[~2016-12-31] VITALS: Ht 157.5 cm; Wt 55.0 kg
[2016-12-31 11:23] VITALS: BP 120/58; PULSE 88; RESP 20; TEMP 97.4; O2SAT 94
--- NOTE | 2016-12-31 13:13 | PD ---
HPI Chief Complaint: Skin Problem Time Seen by Provider: 13:00 Travel History International Travel<30 days: No Contact w/Intl Traveler<30days: No Traveled to known affect area: No History of Present Illness HPI 81-year-old female presents to the emergency department for evaluation of skin rash to her face. Patient states she having this problem intermittently since August of this year. She states this started after she had some stool hit her face from the bathtub in August. Patient states that she sees a cupola melting supervisor for this issue. Patient states she has appointment upcoming on Monday for the same. She states she has a history of staph infection. She states she was admitted for this back in September. 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 Patient has never been admitted for any facial rash or lesions. She has been afebrile. Patient states she takes oxycodone at home for his chronic pain. Patient also states she has a small blister to her right fifth finger over the dorsal surface. She is also asking for refill of her clonazepam at this time. PFSH Past Medical History Hx Anticoagulant Therapy: Yes (81 MG ASA ) Asthma: Yes Autoimmune Disease: No Blood Disorders: No Anxiety: Yes Depression: Yes Heart Rhythm Problems: No Cancer: No Cardiovascular Problems: Yes High Cholesterol: Yes Chemotherapy: No Chest Pain: No COPD: No Cerebrovascular Accident: Yes Diabetes: Yes Patient Takes Glucophage: Yes Diminished Hearing: No Endocrine: No Gastrointestinal Disorders: No GERD: Yes Glaucoma: No Genitourinary: No Headaches: Yes Hepatitis: No Hiatal Hernia: No Hypertension: Yes (states takes no medication) Immune Disorder: No Implanted Vascular Access Dvce: No Medical other: Yes (reflux) Musculoskeletal: No Neurologic: No Psychiatric: No Reproductive: No Respiratory: Yes (ASTHMA) Migraines: No Seizures: No Sleep Apnea: No Thyroid Disease: No Menopausal: Yes : 6 Para: 6 Miscarriage: 0 : 0 Past Surgical History Abdominal Surgery: Yes Cardiac Surgery: No Cholecystectomy: Yes Ear Surgery: No Endocrine Surgery: No Eye Surgery: No Genitourinary Surgery: No Gynecologic Surgery: No Hysterectomy: Yes Neurologic Surgery: No Oral Surgery: Yes (TONSILLECTOMY) Thoracic Surgery: No Tonsillectomy: Yes Other Surgery: Yes (GASTRIC BYPASS? bilat great toe nails removed) Social History Alcohol Use: No Tobacco Use: No Substance Use: No Allergies-Medications (Allergen,Severity, Reaction): Coded Allergies: acetaminophen (Verified Allergy, Severe, Rash, 12/31/16) causes rash cefazolin (Verified Allergy, Severe, Rash, 12/31/16) codeine (Verified Allergy, Severe, Rash, 12/31/16) causes rash doxycycline (Verified Allergy, Severe, Rash, 12/31/16) rash ibuprofen (Verified Allergy, Severe, Rash, 12/31/16) rash meperidine (Verified Allergy, Severe, Anaphylaxis, 12/31/16) anaphylactic shock morphine (Verified Allergy, Severe, Rash, 12/31/16) propoxyphene (Verified Allergy, Severe, Rash, 12/31/16) rash *MDRO Multi-Drug Resistant Organism (Verified Adverse Reaction, Unknown, ) MRSA PCR screen POSITIVE-09/28/16 Reported Meds & Prescriptions Reported Meds & Active Scripts Active Bactrim DS (Sulfamethoxazole-Trimethoprim) 800-160 Mg Tab 1 Tab PO BID Mupirocin Topical (Mupirocin) 2 % Oint 1 Applic TOPICAL BID Epinephrine Inj 1 Mg/Ml Inj 0.3 Mg SQ ONCE PRN Give with any signs of respiratory distress. Epinephrine Inj 1 Mg/Ml Inj 0.3 Mg IV PUSH ONCE PRN Solu-Cortef Inj (Hydrocortisone Sodium Succinate) 250 Mg Inj 250 Mg IV PUSH ONCE PRN Give over 30-60 seconds. Percocet (Oxycodone-Acetaminophen) 5-325 mg Tab 1-2 Tab PO Q6H PRN Zofran Odt (Ondansetron Odt) 4 Mg Tab 4 Mg SL Q6HR PRN Protonix (Pantoprazole Sodium) 40 Mg Tab 40 Mg PO DAILY Reported Glyburide 5 Mg Tab 5 Mg PO DAILY Take with meals at the same time each day Aspirin 81 Mg Chew 81 Mg CHEW DAILY Sertraline (Sertraline HCl) 25 Mg Tab 25 Mg PO DAILY Hydroxyzine HCl 25 Mg Tab 25 Mg PO TID PRN Meclizine (Meclizine HCl) 25 Mg Tab 25 Mg PO BID PRN Gabapentin 600 Mg Tab 600 Mg PO TID Lipitor (Atorvastatin Calcium) 40 Mg Tab 40 Mg PO HS Review of Systems Except as stated in HPI: all other systems reviewed are Neg Physical Exam Narrative GENERAL: Well-nourished, well-developed female patient, afebrile. SKIN: Focused skin assessment warm/dry. Patient has several small small areas to her face that are missing the top layer of skin. There is no surrounding erythema or drainage. She does have a slight yellow crusty drainage to a small lesion on her nose. Patient also has a small blister without drainage to the right fifth finger over the DIP joint on the dorsal surface. No surrounding erythema. HEAD: Normocephalic. Atraumatic. EYES: No scleral icterus. No injection or drainage. NECK: Supple, trachea midline. No JVD or lymphadenopathy. CARDIOVASCULAR: Regular rate and rhythm without murmurs, gallops, or rubs. RESPIRATORY: Breath sounds equal bilaterally. No accessory muscle use. Lungs sounds are clear to auscultation. GASTROINTESTINAL: Abdomen soft, non-tender, nondistended. MUSCULOSKELETAL: No cyanosis, or edema. BACK: Nontender without obvious deformity. No CVA tenderness. Data Data Last Documented VS Vital Signs Date Time Temp Pulse Resp B/P (MAP) Pulse Ox O2 Delivery O2 Flow Rate FiO2 12/31/16 11:23 97.4 88 20 120/58 (78) 94 Room Air MDM Medical Decision Making Medical Screen Exam Complete: Yes Emergency Medical Condition: Yes Medical Record Reviewed: Yes Differential Diagnosis impetigo vs. cellulitis vs. contact dermatitis Narrative Course 81 year old female presents to the emergency department for evaluation of skin lesions to her face. Patient overall appears well. Vitals are stable. Patient will be discharged with a prescription for Bactrim and mupirocin ointment. She is to follow up with her physician on Monday as already scheduled. She is to return here for any acute, worsening of symptoms. Diagnosis Primary Impression: Impetigo Referrals: Primary Care Physician 2 days Patient Instructions: General Instructions, Impetigo (ED) Additional Instructions: Take antibiotic as instructed until gone. Use mupirocin ointment as directed. Follow-up with your primary care physician. Return to the emergency department for any acute worsening of symptoms. Med/Other Pt SpecificInfo: Prescription(s) given Scripts Sulfamethoxazole-Trimethoprim (Bactrim DS) 800-160 Mg Tab 1 TAB PO BID for Infection, #20 TAB 0 Refills Prov: Agnes King 12/31/16 Mupirocin Topical (Mupirocin Topical) 2 % Oint 1 APPLIC TOPICAL BID for Mgmt Bacterial Infection, #1 TUBE 0 Refills Prov: Agnes King 12/31/16 Disposition: 01 DISCHARGE HOME Condition: Stable Agnes King Dec 31, 2016 13:13
[2016-12-31] MEDS ORDERED: BACT800T5 PO (13:23)
[2016-12-31] MEDS ORDERED: MUPI2OIN TOPICAL (13:23)
== END 2016-12-31 14:15 | disposition home or self-care (01) ==
LOC: NEPD 11:20
DX: L01.00 Impetigo, unspecified (principal)
CPT/HCPCS: 99284

== ENCOUNTER 2017-02-17 20:04 | Inpatient (IN) | payer MEDICARE, OTHER ==
[~2017-02-17] VITALS: Ht 157.5 cm; Wt 63.5 kg
[~2017-02-17 20:04] MED LIST changes: +BACT800T5 PO; -CLON0.5T PO; -FERR325T PO; +MUPI2OIN TOPICAL; -VANC10IN IV
[2017-02-17 20:51] LABS: AUTOMATED NEUTROPHIL # 3.6 TH/MM3 (1.8-7.7); BASOPHIL % 0.4 % (0.0-2.0); EOSINOPHIL # 0.1 TH/MM3 (0-0.4); EOSINOPHIL % 2.3 % (0.0-4.0); HEMATOCRIT 38.7 % (35.0-46.0); HEMO FLAGS DIFF FINAL; LYMPH % 27.5 % (9.0-44.0); LYMPHOCYTE # 1.6 TH/MM3 (1.0-4.8); MEAN CELL VOLUME 82.4 FL (80.0-100.0); MEAN CORPUSCULAR HEMOGLOBIN 25.4 PG (27.0-34.0); MEAN CORPUSCULAR HGB CONC 30.9 % (32.0-36.0); MONO % 8.3 % (0.0-8.0); NEUT % 61.5 % (16.0-70.0); PLATELET COUNT 191 TH/MM3 (150-450); RED CELL DISTRIBUTION WIDTH 13.8 % (11.6-17.2); WHITE BLOOD COUNT 5.9 TH/MM3 (4.0-11.0)
--- NOTE | 2017-02-17 20:57 | PD ---
HPI Chief Complaint: Psychiatric Symptoms Time Seen by Provider: 20:23 Travel History International Travel<30 days: No Contact w/Intl Traveler<30days: No Traveled to known affect area: No History of Present Illness HPI 81-year-old female was Martins acted and brought in for altered mental status. Patient was found wandering around the airport waiting for her son arriving from out of town for the past 2 days. Airport security check the airline and unable to confirm the story. Patient denies any headache. Patient denies any chest pain or shortness of breath. Patient denies abdominal pain. Patient denies any focal weakness or numbness of the extremity. Patient denies any recent injury. DCF was involved in the case. Patient was found to be living alone. Patient states that she is on a lot of medications however unable to tell me her medical problems. PFSH Past Medical History Hx Anticoagulant Therapy: Yes (81 MG ASA ) Asthma: Yes Autoimmune Disease: No Blood Disorders: No Anxiety: Yes Depression: Yes Heart Rhythm Problems: No Cancer: No Cardiovascular Problems: Yes High Cholesterol: Yes Chemotherapy: No Chest Pain: No COPD: No Cerebrovascular Accident: Yes Diabetes: Yes Diminished Hearing: No Endocrine: No Gastrointestinal Disorders: No GERD: Yes Glaucoma: No Genitourinary: No Headaches: Yes Hepatitis: No Hiatal Hernia: No Hypertension: Yes (states takes no medication) Immune Disorder: No Implanted Vascular Access Dvce: No Musculoskeletal: No Neurologic: No Psychiatric: No Reproductive: No Respiratory: Yes (ASTHMA) Migraines: No Seizures: No Sleep Apnea: No Thyroid Disease: No Menopausal: Yes : 6 Para: 6 Miscarriage: 0 : 0 Past Surgical History Abdominal Surgery: Yes Cardiac Surgery: No Cholecystectomy: Yes Ear Surgery: No Endocrine Surgery: No Eye Surgery: No Genitourinary Surgery: No Gynecologic Surgery: No Hysterectomy: Yes Neurologic Surgery: No Oral Surgery: Yes (TONSILLECTOMY) Thoracic Surgery: No Tonsillectomy: Yes Other Surgery: Yes (GASTRIC BYPASS? bilat great toe nails removed) Social History Alcohol Use: No Tobacco Use: No Substance Use: No Allergies-Medications (Allergen,Severity, Reaction): Coded Allergies: acetaminophen (Verified Allergy, Severe, Rash, 02/17/17) causes rash cefazolin (Verified Allergy, Severe, Rash, 02/17/17) codeine (Verified Allergy, Severe, Rash, 02/17/17) causes rash doxycycline (Verified Allergy, Severe, Rash, 02/17/17) rash ibuprofen (Verified Allergy, Severe, Rash, 02/17/17) rash meperidine (Verified Allergy, Severe, Anaphylaxis, 02/17/17) anaphylactic shock morphine (Verified Allergy, Severe, Rash, 02/17/17) propoxyphene (Verified Allergy, Severe, Rash, 02/17/17) rash *MDRO Multi-Drug Resistant Organism (Verified Adverse Reaction, Unknown, 02/17/17) MRSA PCR screen POSITIVE-09/28/16 Reported Meds & Prescriptions Reported Meds & Active Scripts Active Bactrim DS (Sulfamethoxazole-Trimethoprim) 800-160 Mg Tab 1 Tab PO BID Mupirocin Topical (Mupirocin) 2 % Oint 1 Applic TOPICAL BID Epinephrine Inj 1 Mg/Ml Inj 0.3 Mg SQ ONCE PRN Give with any signs of respiratory distress. Epinephrine Inj 1 Mg/Ml Inj 0.3 Mg IV PUSH ONCE PRN Solu-Cortef Inj (Hydrocortisone Sodium Succinate) 250 Mg Inj 250 Mg IV PUSH ONCE PRN Give over 30-60 seconds. Percocet (Oxycodone-Acetaminophen) 5-325 mg Tab 1-2 Tab PO Q6H PRN Zofran Odt (Ondansetron Odt) 4 Mg Tab 4 Mg SL Q6HR PRN Protonix (Pantoprazole Sodium) 40 Mg Tab 40 Mg PO DAILY Reported Glyburide 5 Mg Tab 5 Mg PO DAILY Take with meals at the same time each day Aspirin 81 Mg Chew 81 Mg CHEW DAILY Sertraline (Sertraline HCl) 25 Mg Tab 25 Mg PO DAILY Hydroxyzine HCl 25 Mg Tab 25 Mg PO TID PRN Meclizine (Meclizine HCl) 25 Mg Tab 25 Mg PO BID PRN Gabapentin 600 Mg Tab 600 Mg PO TID Lipitor (Atorvastatin Calcium) 40 Mg Tab 40 Mg PO HS Review of Systems General / Constitutional: No: Fever Eyes: No: Visual changes HENT: No: Headaches Cardiovascular: No: Chest Pain or Discomfort Respiratory: No: Shortness of Breath Gastrointestinal: No: Abdominal Pain Genitourinary: No: Dysuria Musculoskeletal: No: Pain Skin: No Rash Neurologic: No: Weakness Psychiatric: No: Depression Endocrine: No: Polydipsia Hematologic/Lymphatic: No: Easy Bruising Physical Exam Narrative GENERAL: Well-nourished, well-developed patient. SKIN: Focused skin assessment warm/dry. HEAD: Normocephalic. EYES: No scleral icterus. No injection or drainage. NECK: Supple, trachea midline. No JVD or lymphadenopathy. CARDIOVASCULAR: Regular rate and rhythm without murmurs, gallops, or rubs. RESPIRATORY: Breath sounds equal bilaterally. No accessory muscle use. GASTROINTESTINAL: Abdomen soft, non-tender, nondistended. MUSCULOSKELETAL: No cyanosis, or edema. BACK: Nontender without obvious deformity. No CVA tenderness. Neurologic exam: Patient awake and alert oriented 3. Patient moves all extremity well. No obvious focal neurological deficit. Data Data Orders Orders Complete Blood Count With Diff (02/17/17 20:25) Comprehensive Metabolic Panel (02/17/17 20:25) Urinalysis - C+S If Indicated (02/17/17 20:25) Psych Screen (02/17/17 20:25) Urine Culture (02/17/17 20:40) Sulfamet-Trimeth Ds 800-160 Mg (Bactrim (02/18/17 02:00) Labs Laboratory Tests Test 02/17/17 20:40 White Blood Count 5.9 TH/MM3 Red Blood Count 4.70 MIL/MM3 Hemoglobin 12.0 GM/DL Hematocrit 38.7 % Mean Corpuscular Volume 82.4 FL Mean Corpuscular Hemoglobin 25.4 PG Mean Corpuscular Hemoglobin Concent 30.9 % Red Cell Distribution Width 13.8 % Platelet Count 191 TH/MM3 Mean Platelet Volume 8.7 FL Neutrophils (%) (Auto) 61.5 % Lymphocytes (%) (Auto) 27.5 % Monocytes (%) (Auto) 8.3 % Eosinophils (%) (Auto) 2.3 % Basophils (%) (Auto) 0.4 % Neutrophils # (Auto) 3.6 TH/MM3 Lymphocytes # (Auto) 1.6 TH/MM3 Monocytes # (Auto) 0.5 TH/MM3 Eosinophils # (Auto) 0.1 TH/MM3 Basophils # (Auto) 0.0 TH/MM3 CBC Comment DIFF FINAL Differential Comment Urine Color YELLOW Urine Turbidity CLEAR Urine pH 5.0 Urine Specific [place] 1.026 Urine Protein NEG mg/dL Urine Glucose (UA) 1000 mg/dL Urine Ketones NEG mg/dL Urine Occult Blood NEG Urine Nitrite NEG Urine Bilirubin NEG Urine Urobilinogen LESS THAN 2.0 MG/DL Urine Leukocyte Esterase MOD Urine RBC 2 /hpf Urine WBC 10 /hpf Urine WBC Clumps RARE Urine Squamous Epithelial Cells 1 /hpf Urine Transitional Epithelial Cells <1 /hpf Urine Hyaline Casts 6 /lpf Urine Mucus FEW /lpf Microscopic Urinalysis Comment CULTURE INDICATED Blood Urea Nitrogen 20 MG/DL Creatinine 0.80 MG/DL Random Glucose 288 MG/DL Total Protein 7.4 GM/DL Albumin 3.6 GM/DL Calcium Level 9.6 MG/DL Alkaline Phosphatase 171 U/L Aspartate Amino Transf (AST/SGOT) 50 U/L Alanine Aminotransferase (ALT/SGPT) 78 U/L Total Bilirubin 0.5 MG/DL Sodium Level 136 MEQ/L Potassium Level 4.4 MEQ/L Chloride Level 102 MEQ/L Carbon Dioxide Level 27.2 MEQ/L Anion Gap 7 MEQ/L Estimat Glomerular Filtration Rate 84 ML/MIN MDM Medical Decision Making Medical Screen Exam Complete: Yes Emergency Medical Condition: Yes Interpretation(s) 1:56 AM. CBC within normal limit. BUN 20. Glucose 288. AST 50. ALT 78. Alkaline phosphatase 171. UA positive with WBC and bacteria. Differential Diagnosis Differential diagnosis including delirium, dementia, electrolyte imbalance. Narrative Course 81-year-old female was found wandering around the airport waiting for her son to be arriving from out-of-town. Patient was found to be living alone. DCF involvement. Patient was Martins acted. Patient has a UTI. Bactrim DS one tablet by mouth given. 1:58 AM. Patient is medically cleared for psychiatric screening evaluation and disposition. Messi Sauceda MD Feb 17, 2017 20:57
[2017-02-17 21:07] LABS: ALT (GPT) 78 U/L (10-53); ANION GAP 7 MEQ/L (5-15); AST (GOT) 50 U/L (15-37); BICARBONATE 27.2 MEQ/L (21.0-32.0); BLOOD UREA NITROGEN 20 MG/DL (7-18); CHLORIDE 102 MEQ/L (98-107); GLOMERULAR FILTRATION RATE 84 ML/MIN (>89); POTASSIUM 4.4 MEQ/L (3.5-5.1); SODIUM (NA) 136 MEQ/L (136-145)
[2017-02-17 21:10] LABS: ALKALINE PHOSPHATASE 171 U/L (45-117); TOTAL BILIRUBIN ADULT 0.5 MG/DL (0.2-1.0)
[2017-02-17 21:12] LABS: BLOOD, URINE NEG (NEG); COMMENT (UR) CULTURE INDICATED; CULTURE IF INDICATED CULTURE INDICATED; GLUCOSE,URINE 1000 mg/dL (NEG); HYALINE CAST, URINE 6 /lpf (RARE); KETONE, URINE NEG (NEG); MUCUS URINE FEW /lpf (OCC); NITRITE,URINE NEG (NEG); SQUAMOUS EPITHELIAL CELL URINE 1 /hpf (0-5); TRANSITIONAL EPI CELLS, URINE <1 /hpf; URINE COLOR YELLOW (YELLW/STRAW)
[2017-02-18] VITALS (7 sets, daily range): BP systolic 128–200; BP diastolic 62–100; PULSE 76–99; RESP 15–18; TEMP 97–98.2; O2SAT 95–99
[2017-02-18] MEDS ORDERED: SULFAMETHOXAZOLE-TRIMETHOPRIM DS 800-160 MG TAB PO ONE (02:00)
[2017-02-18] MEDS ORDERED: OXYC15TA PO (03:24)
[2017-02-18] MEDS ORDERED: LORA-373 PO (03:24)
[2017-02-18] MEDS ORDERED: MAGNESIUM HYDROXIDE SUSP 30 ML CUP PO PRN (10:00)
[2017-02-18] MEDS ORDERED: ACETAMINOPHEN 325 MG TAB PO PRN (10:00)
--- NOTE | 2017-02-18 14:31 | PD.CONS ---
History of Present Illness Service Hospitalist Consult Requested By Talha Reason for Consult Management of DM & HTN Primary Care Physician Unknown Diagnoses: History of Present Illness 81-year-old female brought to the ER yesterday for altered mental status. She was apparently found wandering around the airport waiting for her son to arrive for 2 days. She denied any physical complaints. DCF got involved in the case. The patient was on a lot of medication but was unable to state any of her medical problems to the ED physician. Medical history is significant though for hyperlipidemia, hypertension, and diabetes. Patient was admitted to [facility], [facility], and hospitalist team was consulted for medical management. Patient also found to have UTI. Denies CP or difficulty breathing. No history is able to be obtained from the patient because she speaks non sensically, stating bugs are attacking her and she is going to [facility] the [facility]. Review of Systems ROS Limitations: Altered Mental Status, Uncooperative Past Family Social History Allergies: Coded Allergies: acetaminophen (Verified Allergy, Severe, Rash, 02/17/17) causes rash cefazolin (Verified Allergy, Severe, Rash, 02/17/17) codeine (Verified Allergy, Severe, Rash, 02/17/17) causes rash doxycycline (Verified Allergy, Severe, Rash, 02/17/17) rash ibuprofen (Verified Allergy, Severe, Rash, 02/17/17) rash meperidine (Verified Allergy, Severe, Anaphylaxis, 02/17/17) anaphylactic shock morphine (Verified Allergy, Severe, Rash, 02/17/17) propoxyphene (Verified Allergy, Severe, Rash, 02/17/17) rash *MDRO Multi-Drug Resistant Organism (Verified Adverse Reaction, Unknown, 02/17/17) MRSA PCR screen POSITIVE-09/28/16 Past Medical History Hypertension Hyperlipidemia Diabetes (obtained based on her list of medications in EMR) Past Surgical History Unable to be obtained from patient Reported Medications Bactrim DS (Sulfamethoxazole-Trimethoprim) 800-160 Mg Tab 1 Tab PO BID Mupirocin Topical (Mupirocin) 2 % Oint 1 Applic TOPICAL BID Epinephrine Inj 1 Mg/Ml Inj 0.3 Mg SQ ONCE PRN Give with any signs of respiratory distress. Epinephrine Inj 1 Mg/Ml Inj 0.3 Mg IV PUSH ONCE PRN Solu-Cortef Inj (Hydrocortisone Sodium Succinate) 250 Mg Inj 250 Mg IV PUSH ONCE PRN Give over 30-60 seconds. Percocet (Oxycodone-Acetaminophen) 5-325 mg Tab 1-2 Tab PO Q6H PRN Zofran Odt (Ondansetron Odt) 4 Mg Tab 4 Mg SL Q6HR PRN Protonix (Pantoprazole Sodium) 40 Mg Tab 40 Mg PO DAILY Lorazepam 0.5 Mg Tab 0.5 Mg PO DAILY PRN Oxycodone (Oxycodone HCl) 15 Mg Tab 15 Mg PO Q6H PRN Glyburide 5 Mg Tab 5 Mg PO DAILY Take with meals at the same time each day Aspirin 81 Mg Chew 81 Mg CHEW DAILY Sertraline (Sertraline HCl) 25 Mg Tab 25 Mg PO DAILY Hydroxyzine HCl 25 Mg Tab 25 Mg PO TID PRN Meclizine (Meclizine HCl) 25 Mg Tab 25 Mg PO BID PRN Gabapentin 600 Mg Tab 600 Mg PO TID Lipitor (Atorvastatin Calcium) 40 Mg Tab 40 Mg PO HS Active Ordered Medications Reported Meds & Active Scripts Active Bactrim DS (Sulfamethoxazole-Trimethoprim) 800-160 Mg Tab 1 Tab PO BID Mupirocin Topical (Mupirocin) 2 % Oint 1 Applic TOPICAL BID Epinephrine Inj 1 Mg/Ml Inj 0.3 Mg SQ ONCE PRN Give with any signs of respiratory distress. Epinephrine Inj 1 Mg/Ml Inj 0.3 Mg IV PUSH ONCE PRN Solu-Cortef Inj (Hydrocortisone Sodium Succinate) 250 Mg Inj 250 Mg IV PUSH ONCE PRN Give over 30-60 seconds. Percocet (Oxycodone-Acetaminophen) 5-325 mg Tab 1-2 Tab PO Q6H PRN Zofran Odt (Ondansetron Odt) 4 Mg Tab 4 Mg SL Q6HR PRN Protonix (Pantoprazole Sodium) 40 Mg Tab 40 Mg PO DAILY Reported Lorazepam 0.5 Mg Tab 0.5 Mg PO DAILY PRN Oxycodone (Oxycodone HCl) 15 Mg Tab 15 Mg PO Q6H PRN Glyburide 5 Mg Tab 5 Mg PO DAILY Take with meals at the same time each day Aspirin 81 Mg Chew 81 Mg CHEW DAILY Sertraline (Sertraline HCl) 25 Mg Tab 25 Mg PO DAILY Hydroxyzine HCl 25 Mg Tab 25 Mg PO TID PRN Meclizine (Meclizine HCl) 25 Mg Tab 25 Mg PO BID PRN Gabapentin 600 Mg Tab 600 Mg PO TID Lipitor (Atorvastatin Calcium) 40 Mg Tab 40 Mg PO HS Physical Exam Vital Signs Vital Signs Date Time Temp Pulse Resp B/P (MAP) Pulse Ox O2 Delivery O2 Flow Rate FiO2 02/18/17 13:15 02/18/17 07:02 76 15 128/67 (87) 98 02/18/17 04:00 96 18 140/100 (113) 99 02/18/17 02:23 98.0 78 18 130/78 (95) 99 Room Air Physical Exam GENERAL: This is a well-nourished, well-developed patient, in no apparent distress. SKIN: wound on upper lip, multiple scabs on lower extremities HEAD: Atraumatic. Normocephalic. No temporal or scalp tenderness. EYES: Pupils equal round and reactive. Extraocular motions intact. No scleral icterus. No injection or drainage. ENT: Nose without bleeding. Airway patent. NECK: Trachea midline. No JVD or lymphadenopathy. Supple, nontender, no meningeal signs. CARDIOVASCULAR: Regular rate and rhythm without murmurs, gallops, or rubs. RESPIRATORY: Clear to auscultation. Breath sounds equal bilaterally. No wheezes , rales, or rhonchi. GASTROINTESTINAL: Abdomen soft, non-tender, nondistended. No hepato-splenomegaly , or palpable masses. No guarding. MUSCULOSKELETAL: Extremities without clubbing, cyanosis, or edema. No joint tenderness, effusion, or edema noted. No calf tenderness. NEUROLOGICAL: Awake and alert. Actively hallucinating and is delusional. Does not answer questions appropriately. Laboratory Laboratory Tests Test 02/17/17 20:40 White Blood Count 5.9 Red Blood Count 4.70 Hemoglobin 12.0 Hematocrit 38.7 Mean Corpuscular Volume 82.4 Mean Corpuscular Hemoglobin 25.4 Mean Corpuscular Hemoglobin Concent 30.9 Red Cell Distribution Width 13.8 Platelet Count 191 Mean Platelet Volume 8.7 Neutrophils (%) (Auto) 61.5 Lymphocytes (%) (Auto) 27.5 Monocytes (%) (Auto) 8.3 Eosinophils (%) (Auto) 2.3 Basophils (%) (Auto) 0.4 Neutrophils # (Auto) 3.6 Lymphocytes # (Auto) 1.6 Monocytes # (Auto) 0.5 Eosinophils # (Auto) 0.1 Basophils # (Auto) 0.0 CBC Comment DIFF FINAL Differential Comment Urine Color YELLOW Urine Turbidity CLEAR Urine pH 5.0 Urine Specific [place] 1.026 Urine Protein NEG Urine Glucose (UA) 1000 Urine Ketones NEG Urine Occult Blood NEG Urine Nitrite NEG Urine Bilirubin NEG Urine Urobilinogen LESS THAN 2.0 Urine Leukocyte Esterase MOD Urine RBC 2 Urine WBC 10 Urine WBC Clumps RARE Urine Squamous Epithelial Cells 1 Urine Transitional Epithelial Cells <1 Urine Hyaline Casts 6 Urine Mucus FEW Microscopic Urinalysis Comment CULTURE INDICATED Blood Urea Nitrogen 20 Creatinine 0.80 Random Glucose 288 Total Protein 7.4 Albumin 3.6 Calcium Level 9.6 Alkaline Phosphatase 171 Aspartate Amino Transf (AST/SGOT) 50 Alanine Aminotransferase (ALT/SGPT) 78 Total Bilirubin 0.5 Sodium Level 136 Potassium Level 4.4 Chloride Level 102 Carbon Dioxide Level 27.2 Anion Gap 7 Estimat Glomerular Filtration Rate 84 Date/Time Source Procedure Growth Status 02/17/17 20:40 Urine Clean Catch Urine Culture Pending Worksheet Result Diagram: 02/17/17203902/17/172039 Assessment and Plan Problem List: (1) Altered mental state ICD Codes: R41.82 - Altered mental status, unspecified Status: Acute (2) Diabetes ICD Codes: E11.9 - Type 2 diabetes mellitus without complications Status: Acute (3) Hypertension ICD Codes: I10 - Essential (primary) hypertension Status: Chronic (4) Hyperlipidemia ICD Codes: E78.5 - Hyperlipidemia, unspecified Status: Chronic Assessment and Plan 81-year-old female admitted psych unit under Martins act for altered mental status. Hospitalist managing: UTI: Urine culture pending. Continue Bactrim Diabetes: Random glucose 288 on admission. A1c is pending. Per EMR patient takes 5 mg of glyburide daily. We'll see with the results of the A1C and make recommendations for diabetes based on this. Hypertension. Currently normotensive. Does not appear that she was on any antihypertensives at home. Hyperlipidemia: Continue atorvastatin Patient was on multiple antidepressants and anxiolytics. Will defer to psych. Discharge Planning Per Psych. Problem Qualifiers (1) Altered mental state: Qualified Codes: R41.82 - Altered mental status, unspecified Kassidy Jessica MD Feb 18, 2017 14:31
--- NOTE | 2017-02-18 14:56 | HHI.HP ---
Provisional Diagnosis Admission Date Feb 18, 2017 at 09:55 [place] I. Unspecified psychosis Certification of Person's Competence To Provide Express and Informed Consent I have personally examined Bernadette Arias , a person being served at [facility] on, Feb 18, 2017 14:48. Express and informed consent means consent voluntarily given in writing, by a competent person, after sufficient explanation and disclosure of the subject matter involved to enable the person to make a knowing and willful decision without any element of force, fraud, deceit, duress, or other form of constraint or coercion. This person is 18 years of age or older, is not now known to be incompetent to consent to treatment with a guardian advocate, and does not have a health care surrogate or proxy currently making medical treatment decisions. I have found this person to be one of the following: [] Competent to provide express and informed consent, as defined above, for voluntary admission to this facility and is competent to provide express and informed consent for treatment. He/she has the consistent capacity to make well reasoned, willful, and knowing decisions concerning his or her medical or mental health treatment. The person fully and consistently understands the purpose of the admission for examination/placement and is fully capable of personally exercising all rights assured under [place] [] Incompetent to provide express and informed consent to voluntary admission, and this is incompetent to provide express and informed consent to treatment. The person must be transferred to involuntary status and a petition for a guardian advocate filed with the Circuit Court. [X] Refusing to provide express and informed consent to voluntary admission but is competent to provide express and informed consent for treatment. The person must be discharged or transferred to involuntary status. Form shall be completed within 24 hours of a person's arrival at the receiving facility and filed in the clinical record of each person: 1. Admitted on a voluntary basis 2. Permitted to provide express and informed consent to his/her own treatment 3. Allowed to transfer from involuntary to voluntary status 4. Prior to permitting a person to consent to his or her own treatment after having been previously found incompetent to consent to treatment. History of Present Illness Capacity: Has Capacity HPI The patient is a 81-year-old -[place] woman domiciled alone in [facility], without any reported psychiatric history, psychiatric hospitalization was suicidal attempts, she denies chronic medical illnesses, who was Martins acted and brought in for altered mental status. Patient was found wandering around the airport waiting for her son arriving from out of town for the past 2 days. Airport security check the airline and unable to confirm the story. Patient was cleared medically by ER Team. On psychiatric evaluation today patient is calm, partially cooperative, very disorganized. Patient says that the reason she is in the ER is she has a lump in her vagina, and as she reports this complaining she exposed herself trying to show me her intimate parts, but was redirected. Patient reports good mood, she says that she is very happy, she described herself as a happy person," nonproblematic, always happy". When I asked her what is she, she answers that she is in the airport waiting for her son. However, she is oriented in time, she knows that the care management assistant is Richard Roach, but cognitive assessment was not able to be completed, as the patient became agitated and he started demanding to be discharged. She denies suicidal and homicidal ideation, she denies visual and auditory hallucinations. She denies the use of alcohol and illicit drugs. Martins act documentation also states that the patient's apartment is inhabitable , in infrahuman conditions, with peaceable feces in the abdi and floor. Review of Systems Except as stated in HPI: all other systems reviewed are Neg Substance Abuse History Drugs/Alcohol past 12 months Patient denies the use of alcohol and illicit drugs Past Family Social History Coded Allergies: acetaminophen (Verified Allergy, Severe, Rash, 02/17/17) causes rash cefazolin (Verified Allergy, Severe, Rash, 02/17/17) codeine (Verified Allergy, Severe, Rash, 02/17/17) causes rash doxycycline (Verified Allergy, Severe, Rash, 02/17/17) rash ibuprofen (Verified Allergy, Severe, Rash, 02/17/17) rash meperidine (Verified Allergy, Severe, Anaphylaxis, 02/17/17) anaphylactic shock morphine (Verified Allergy, Severe, Rash, 02/17/17) propoxyphene (Verified Allergy, Severe, Rash, 02/17/17) rash *MDRO Multi-Drug Resistant Organism (Verified Adverse Reaction, Unknown, 02/17/17) MRSA PCR screen POSITIVE-09/28/16 Active Scripts Sulfamethoxazole-Trimethoprim (Bactrim DS) 800-160 Mg Tab, 1 TAB PO BID for Infection, #20 TAB 0 Refills Prov:Agnes King 12/31/16 Mupirocin Topical (Mupirocin Topical) 2 % Oint, 1 APPLIC TOPICAL BID for Mgmt Bacterial Infection, #1 TUBE 0 Refills Prov:Agnes King 12/31/16 Epinephrine Inj (Epinephrine Inj) 1 Mg/Ml Inj, 0.3 MG SQ ONCE Y for ALLERGIC REACTION, #1 VIAL Give with any signs of respiratory distress. Prov:Leslie Ball MD 10/04/16 Epinephrine Inj (Epinephrine Inj) 1 Mg/Ml Inj, 0.3 MG IV PUSH ONCE Y for ALLERGIC REACTION, #1 VIAL Prov:Leslie Ball MD 10/04/16 Hydrocortisone Inj (Solu-Cortef Inj) 250 Mg Inj, 250 MG IV PUSH ONCE Y for ALLERGIC REACTION, #1 VIAL 0 Refills Give over 30-60 seconds. Prov:Leslie Ball MD 10/04/16 Oxycodone-Acetaminophen (Percocet) 5-325 mg Tab, 1-2 TAB PO Q6H Y for PAIN, #20 TAB 0 Refills Prov:Dang Martin MD 10/04/16 Ondansetron Odt (Zofran Odt) 4 Mg Tab, 4 MG SL Q6HR Y for Nausea/Vomiting, #7 TAB 0 Refills Prov:Zully Rios MD 08/10/16 Pantoprazole (Protonix) 40 Mg Tab, 40 MG PO DAILY for Reflux, #30 TAB 0 Refills Prov:Guera Cartagena DO 05/06/16 Reported Medications Lorazepam (Lorazepam) 0.5 Mg Tab, 0.5 MG PO DAILY Y for ANXIETY, TAB 0 Refills 02/18/17 Oxycodone (Oxycodone) 15 Mg Tab, 15 MG PO Q6H Y for PAIN, TAB 0 Refills 02/18/17 Glyburide (Glyburide) 5 Mg Tab, 5 MG PO DAILY for Blood Sugar Management, #30 TAB 0 Refills Take with meals at the same time each day 08/09/16 Aspirin (Aspirin) 81 Mg Chew, 81 MG CHEW DAILY, TAB 0 Refills 05/06/16 Sertraline (Sertraline) 25 Mg Tab, 25 MG PO DAILY, #30 TAB 0 Refills 05/06/16 Hydroxyzine HCl (Hydroxyzine HCl) 25 Mg Tab, 25 MG PO TID Y for ITCHING, TAB 0 Refills 05/06/16 Meclizine (Meclizine) 25 Mg Tab, 25 MG PO BID Y for VERTIGO, TAB 0 Refills 05/06/16 Gabapentin (Gabapentin) 600 Mg Tab, 600 MG PO TID, #90 TAB 0 Refills 05/06/16 Atorvastatin (Lipitor) 40 Mg Tab, 40 MG PO HS for Cholesterol Management, #30 TAB 0 Refills 05/06/16 Current Medications Medications (Trade) Dose Ordered Sig/Ifeoma Route Start Time Stop Time Status Last Admin (Tylenol) 650 mg Q4H PRN PO 02/18/17 10:00 (Milk Of Magnesia Liq) 30 ml DAILY PRN PO 02/18/17 10:00 (Mag-Al Plus Susp Liq) 30 ml Q6H PRN PO 02/18/17 10:00 (Habitrol 21 Mg Patch.24 Hr) 1 patch DAILY T-DERMAL 02/19/17 09:00 Social History Patient reports that she was born in [place], she is single, she lives alone in [place], she says that she has a son Physical Exam No Tremors, no stiffness, no gait disturbances Vital Signs Vital Signs Date Time Temp Pulse Resp B/P (MAP) Pulse Ox O2 Delivery O2 Flow Rate FiO2 02/18/17 13:15 02/18/17 07:02 76 15 98 02/18/17 02:23 98.0 Room Air Lab Results Test 02/17/17 20:40 White Blood Count 5.9 TH/MM3 Red Blood Count 4.70 MIL/MM3 Hemoglobin 12.0 GM/DL Hematocrit 38.7 % Mean Corpuscular Volume 82.4 FL Mean Corpuscular Hemoglobin 25.4 PG Mean Corpuscular Hemoglobin Concent 30.9 % Red Cell Distribution Width 13.8 % Platelet Count 191 TH/MM3 Mean Platelet Volume 8.7 FL Neutrophils (%) (Auto) 61.5 % Lymphocytes (%) (Auto) 27.5 % Monocytes (%) (Auto) 8.3 % Eosinophils (%) (Auto) 2.3 % Basophils (%) (Auto) 0.4 % Neutrophils # (Auto) 3.6 TH/MM3 Lymphocytes # (Auto) 1.6 TH/MM3 Monocytes # (Auto) 0.5 TH/MM3 Eosinophils # (Auto) 0.1 TH/MM3 Basophils # (Auto) 0.0 TH/MM3 CBC Comment DIFF FINAL Differential Comment Urine Color YELLOW Urine Turbidity CLEAR Urine pH 5.0 Urine Specific [place] 1.026 Urine Protein NEG mg/dL Urine Glucose (UA) 1000 mg/dL Urine Ketones NEG mg/dL Urine Occult Blood NEG Urine Nitrite NEG Urine Bilirubin NEG Urine Urobilinogen LESS THAN 2.0 MG/DL Urine Leukocyte Esterase MOD Urine RBC 2 /hpf Urine WBC 10 /hpf Urine WBC Clumps RARE Urine Squamous Epithelial Cells 1 /hpf Urine Transitional Epithelial Cells <1 /hpf Urine Hyaline Casts 6 /lpf Urine Mucus FEW /lpf Microscopic Urinalysis Comment CULTURE INDICATED Blood Urea Nitrogen 20 MG/DL Creatinine 0.80 MG/DL Random Glucose 288 MG/DL Total Protein 7.4 GM/DL Albumin 3.6 GM/DL Calcium Level 9.6 MG/DL Alkaline Phosphatase 171 U/L Aspartate Amino Transf (AST/SGOT) 50 U/L Alanine Aminotransferase (ALT/SGPT) 78 U/L Total Bilirubin 0.5 MG/DL Sodium Level 136 MEQ/L Potassium Level 4.4 MEQ/L Chloride Level 102 MEQ/L Carbon Dioxide Level 27.2 MEQ/L Anion Gap 7 MEQ/L Estimat Glomerular Filtration Rate 84 ML/MIN Date/Time Source Procedure Growth Status 02/17/17 20:40 Urine Clean Catch Urine Culture Pending Worksheet Mental Status Examination Appearance: Appropriate Consciousness: Alert Orientation: x4 Motor Activity: Normal gait Speech: Unremarkable Language: Adequate Fund of Knowledge: Inadequate Attention and Concentration: Adequate Memory: Impaired Mood: Appropriate Affect: Appropriate Thought Process & Associations: Loose associations Thought Content: Appropriate Hallucination Type: None Delusion Type: None Suicidal Ideation: No Suicidal Plan: No Suicidal Intention: No Homicidal Ideation: No Homicidal Plan: No Homicidal Intention: No Insight: Adequate Judgment: Adequate Assessment & Plan Problem List: (1) Unspecified psychosis ICD Codes: F29 - Unspecified psychosis not due to a substance or known physiological condition Assessment & Plan: On psychiatric evaluation today patient presents disorganized, a little bit agitated, partially disoriented, loosening of associations and paranoia. Patient seems to be cognitively impaired most probably related with an underlying dementia. Patient has been allegedly self neglecting herself, she was found in the airport "waiting for my son", living in deplorable conditions, not taking care of herself, and putting endanger her around integrity. She needs to be hospitalized for stabilization and safety. We'll start Seroquel 12.5 mg for psychosis. Consult hospitalist for underlying medical conditions. Consul psychiatric opinion. terminal worker intervention for collateral information, individual and group activities, coordinating a safe discharge. Transfer to 2500 unit. Assessment & Plan Estimated LOS: Lonny Palencia MD Feb 18, 2017 14:56
[2017-02-18] MEDS ORDERED: PILL SPLITTER OTHER PRN (15:00)
[2017-02-18] MEDS ORDERED: cloNIDine HCL 0.1 MG TAB PO PRN (18:00)
[2017-02-18] MEDS: GABAPENTIN 300 MG CAP PO SCH (18:08)
[2017-02-18] MEDS: ATORVASTATIN 40 MG TAB PO SCH (20:38)
[2017-02-18] MEDS ORDERED: LORazepam 2 MG/ML VIAL IM SCH (23:15)
[2017-02-18] MEDS ORDERED: LORazepam 2 MG TAB PO SCH (23:15)
[2017-02-19 06:09] VITALS: BP 122/68; PULSE 80; RESP 17; TEMP 98; O2SAT 96
[2017-02-19] MEDS: NICOTINE 21 MG/24 HR PATCH T-DERMAL SCH (09:00)
[2017-02-19] MEDS: QUEtiapine FUMARATE 25 MG TAB PO SCH ×2 (09:33→11:38)
[2017-02-19] MEDS: GABAPENTIN 300 MG CAP PO SCH ×3 (09:34→17:11)
[2017-02-19 10:17] LABS: ANION GAP 8 MEQ/L (5-15); BICARBONATE 27.7 MEQ/L (21.0-32.0); BLOOD UREA NITROGEN 17 MG/DL (7-18); CHLORIDE 97 MEQ/L (98-107); GLOMERULAR FILTRATION RATE 68 ML/MIN (>89); POTASSIUM 5.2 MEQ/L (3.5-5.1); SODIUM (NA) 133 MEQ/L (136-145)
[2017-02-19 10:20] LABS: HDL CHOLESTEROL 50.6 MG/DL (40.0-60.0); LDL CHOLESTEROL 105 MG/DL (0-99)
--- NOTE | 2017-02-19 16:50 | HHI.PYPN ---
Subjective Remarks This is a request for second opinion. Admission note was reviewed and I agree with his consonants. Case was discussed with nursing and patient was evaluated. Patient is alert and oriented 3 though she remains confused and gives a convoluted story concerning her admission. She admits to visual hallucinations of worms and sees them everywhere. Mood is bright and cheerful. Tolerating medications well, eating well Mental Status Examination Appearance: Appropriate Consciousness: Alert Orientation: x4 Motor Activity: Normal gait Speech: Unremarkable Language: Adequate Fund of Knowledge: Inadequate Attention and Concentration: Adequate Memory: Impaired Mood: Appropriate Affect: Appropriate Thought Process & Associations: Tangential Thought Content: Bizarre thinking, Hallucinations (worms) Hallucination Type: None, Visual Delusion Type: None Suicidal Ideation: No Suicidal Plan: No Suicidal Intention: No Homicidal Ideation: No Homicidal Plan: No Homicidal Intention: No Insight: Adequate Judgment: Adequate Results Labs Test 02/19/17 08:39 Blood Urea Nitrogen 17 MG/DL Creatinine 0.95 MG/DL Random Glucose 323 MG/DL Calcium Level 9.1 MG/DL Sodium Level 133 MEQ/L Potassium Level 5.2 MEQ/L Chloride Level 97 MEQ/L Carbon Dioxide Level 27.7 MEQ/L Anion Gap 8 MEQ/L Estimat Glomerular Filtration Rate 68 ML/MIN Triglycerides Level 180 MG/DL Cholesterol Level 192 MG/DL LDL Cholesterol 105 MG/DL HDL Cholesterol 50.6 MG/DL Cholesterol/HDL Ratio 3.79 RATIO Date/Time Source Procedure Growth Status 02/17/17 20:40 Urine Clean Catch Urine Culture - Final 50-100,000 CFU/ML MIXED GRAM POSITIVE... Complete Vitals/IOs Vital Signs Date Time Temp Pulse Resp B/P (MAP) Pulse Ox O2 Delivery O2 Flow Rate FiO2 02/19/17 06:09 98.0 80 17 122/68 (86) 96 02/18/17 02:23 Room Air Assessment & Plan Problem List: (1) Unspecified psychosis ICD Codes: F29 - Unspecified psychosis not due to a substance or known physiological condition Assessment & Plan I agree with first opinion to continue petition. Criteria include acute psychosis Justification for Cont. Inpt. Patient would decompensate in a less restrictive setting Nikolas Diez DO Feb 19, 2017 16:50
[2017-02-19 19:41] VITALS: BP 104/58; PULSE 92; RESP 18; TEMP 98
[2017-02-19] MEDS: ATORVASTATIN 40 MG TAB PO SCH (20:52)
[2017-02-20 05:47] VITALS: BP 152/69; PULSE 72; RESP 17; TEMP 98.1
[2017-02-20] MEDS: GABAPENTIN 300 MG CAP PO SCH ×3 (08:15→17:39)
[2017-02-20] MEDS: QUEtiapine FUMARATE 25 MG TAB PO SCH ×2 (08:15→12:00)
[2017-02-20] MEDS: NICOTINE 21 MG/24 HR PATCH T-DERMAL SCH (08:16)
--- NOTE | 2017-02-20 12:10 | HHI.PR ---
Subjective Remarks resting comfortably with no distress. denies any new complaints. d/w the RN. Objective Vitals Vital Signs Date Time Temp Pulse Resp B/P (MAP) Pulse Ox O2 Delivery O2 Flow Rate FiO2 02/20/17 05:47 98.1 72 17 152/69 (96) 02/19/17 19:41 98.0 92 18 104/58 (73) I/O 02/19/17 02/19/17 02/19/17 02/20/17 02/20/17 02/20/17 07:00 15:00 23:00 07:00 15:00 23:00 Intake Total 600 ml 360 ml Balance 600 ml 360 ml Intake Oral 600 ml 360 ml # Voids 0 Result Diagram: 02/17/17203902/19/17838 Objective Remarks GENERAL: This is a well-nourished, well-developed patient, in no apparent distress. CARDIOVASCULAR: Regular rate and regular rhythm without murmurs, gallops, or rubs. RESPIRATORY: Clear to auscultation. Breath sounds equal bilaterally. No wheezes , rales, or rhonchi. GASTROINTESTINAL: Abdomen soft, non-tender, nondistended. Normal, active bowel sounds MUSCULOSKELETAL: Extremities without clubbing, cyanosis, or edema. NEURO: Awake and alert. Medications and IVs Current Medications Trimethoprim/ Sulfamethoxazole (Bactrim Ds 800-160 Mg) 1 tab ONCE ONCE PO Last administered on 02/18/17 02:07; Start 02/18/17 at 02:00; Stop 02/18/17 at 02:01; Status DC Acetaminophen (Tylenol) 650 mg Q4H PRN PO Pain 1-5 or Temp >101F; Start at 10:00 Magnesium Hydroxide (Milk Of Magnesia Liq) 30 ml DAILY PRN PO CONSTIPATION; Start 02/18/17 at 10:00 Al Hydrox/Mg Hydrox/Simethicone (Mag-Al Plus Susp Liq) 30 ml Q6H PRN PO DYSPEPSIA; Start 02/18/17 at 10:00 Nicotine (Habitrol 21 Mg Patch.24 Hr) 1 patch DAILY T-DERMAL ; Start 02/19/17 at 09:00 Quetiapine Fumarate (SEROquel) 12.5 mg BID@09,12 PO Last administered on 08:15; Start 02/19/17 at 09:00 Miscellaneous (Pill Splitter) 1 ea UNSCH PRN OTHER SEE LABEL COMMENTS; Start 02/18/17 at 15:00 Atorvastatin Calcium (Lipitor) 40 mg HS PO Last administered on 02/19/17 20: 52; Start 02/18/17 at 21:00 Gabapentin (Neurontin) 600 mg TID PO Last administered on 02/20/17 08:15; Start 02/18/17 at 18:00 Clonidine (Catapres) 0.1 mg Q6H PRN PO SBP> OR = 180, DBP> OR = 100; Start at 18:00 Lorazepam (Ativan) 2 mg NOW PO ; Start 02/18/17 at 23:15; Stop 02/19/17 at 01: 00; Status DC Lorazepam (Ativan Inj) 2 mg NOW IM ; Start 02/18/17 at 23:15; Stop 02/19/17 at 01:00; Status DC A/P Assessment and Plan A/P abnormal UA- asymptomatic and UC with mixed bacteria- no need for abx. Diabetes: Random glucose 288 on admission. A1c is pending. start on accu- check with SSI for now- Hypertension. Currently normotensive. Does not appear that she was on any antihypertensives at home. Hyperlipidemia: Continue atorvastatin Patient was on multiple antidepressants and anxiolytics. Will defer to psych. Patsor Aquino MD Feb 20, 2017 12:10
[2017-02-20] MEDS ORDERED: GLUCAGON 1 MG/ML VIAL OTHER PRN (12:15)
[2017-02-20] MEDS ORDERED: DEXTROSE 50% IN WATER 50 ML VIAL(D50) IV PUSH PRN (12:15)
--- NOTE | 2017-02-20 16:25 | HHI.PYPN ---
Subjective Remarks Patient was seen today for psychiatric reevaluation along with medical student. Patient is calm, cooperative, very pleasant and talkative. Patient states that she doesn't really know what is the reason she is here. She says that she was arrested by police when she was waiting for her son in the area prefer not recent. She says that she doesn't feel very safe in this unit "because there is a lot of bugs everywhere and they're crawling my skin". Patient is able to point out to the floor stating that "there are a lot of worms there". Patient says that she has been watching TV, in the previous program there was a man trying to medicate "something to me". Patient is fully oriented 3, she doesn' t have any fluctuation of consciousness, or attention deficit, she has a conserve repetition, language, semantic memory, abstraction, and recent recall. She was able to repeat 3 words recalled in 5 minutes later. No agitation, no aggressive behavior reported or observed. She is compliant with medications, no significant side effects. Chief Complaint: There are a lot of bugs crwling in the floor Mental Status Examination Appearance: Appropriate Consciousness: Alert Orientation: x4 Motor Activity: Normal gait Speech: Unremarkable Language: Adequate Fund of Knowledge: Inadequate Attention and Concentration: Adequate Memory: Impaired Mood: Appropriate Affect: Appropriate Thought Process & Associations: Tangential Thought Content: Bizarre thinking, Hallucinations (worms) Hallucination Type: Visual Delusion Type: Paranoid Suicidal Ideation: No Suicidal Plan: No Suicidal Intention: No Homicidal Ideation: No Homicidal Plan: No Homicidal Intention: No Insight: Adequate Judgment: Adequate Results Labs Date/Time Source Procedure Growth Status 02/17/17 20:40 Urine Clean Catch Urine Culture - Final 50-100,000 CFU/ML MIXED GRAM POSITIVE... Complete Vitals/IOs Vital Signs Date Time Temp Pulse Resp B/P (MAP) Pulse Ox O2 Delivery O2 Flow Rate FiO2 02/20/17 05:47 98.1 72 17 152/69 (96) 02/19/17 06:09 96 02/18/17 02:23 Room Air Intake and Output 02/20/17 02/20/17 02/21/17 08:00 16:00 00:00 Intake Total 360 ml 240 ml Balance 360 ml 240 ml Assessment & Plan Problem List: (1) Unspecified psychosis ICD Codes: F29 - Unspecified psychosis not due to a substance or known physiological condition Assessment & Plan: On psychiatric reevaluation patient continues to present fixed, with structure and complex delusions of parasitosis, patient says that there are bugs crawling her skin and in the floor. She also has some mild to moderate reality testing impairment and delusions of reference. Cognition seems to be conserved. Even though her psychosis doesn't seem to be very dangerous, my concern is that the patient, due to the level and severity of the psychosis, is unable to survive and to take care of herself in the community. Will increase Seroquel to 25 mg twice a day. Assessment & Plan Estimated LOS: days Justification for Cont. Inpt. Patient is acutely psychotic, she needs psychiatric hospitalization for stabilization. Lonny Palencia MD Feb 20, 2017 16:25
[2017-02-20] MEDS: INSULIN ASPART SUPPLEMENTAL SCALE SQ SCH ×2 (16:27→21:00)
[2017-02-20 17:08] LABS: HEMOGLOBIN A1a 1.5 %; HEMOGLOBIN A1b 2.8 %; HEMOGLOBIN Ao 77.4 %; HEMOGLOBIN LA1C 2.9 %
[2017-02-20 18:00] VITALS: BP 121/59; PULSE 91; RESP 16; TEMP 98.3; O2SAT 97
[2017-02-20] MEDS: ATORVASTATIN 40 MG TAB PO SCH (21:33)
[2017-02-21 06:00] VITALS: BP 144/69; PULSE 73; RESP 18; TEMP 97.7; O2SAT 96
[2017-02-21] MEDS: INSULIN ASPART SUPPLEMENTAL SCALE SQ SCH ×4 (08:00→21:00)
[2017-02-21] MEDS: NICOTINE 21 MG/24 HR PATCH T-DERMAL SCH (09:00)
[2017-02-21] MEDS ORDERED: QUEtiapine FUMARATE 25 MG TAB PO SCH (09:00)
[2017-02-21] MEDS: GABAPENTIN 300 MG CAP PO SCH ×3 (09:40→17:26)
--- NOTE | 2017-02-21 09:53 | HHI.PR ---
Subjective Remarks in no acute distress. no chest pain, sob or dizziness. looks comfortable. Objective Vitals Vital Signs Date Time Temp Pulse Resp B/P (MAP) Pulse Ox O2 Delivery O2 Flow Rate FiO2 02/21/17 06:00 97.7 73 18 144/69 (94) 96 02/20/17 18:00 98.3 91 16 121/59 (79) 97 I/O 02/20/17 02/20/17 02/20/17 02/21/17 02/21/17 02/21/17 07:00 15:00 23:00 07:00 15:00 23:00 Intake Total 360 ml 240 ml 1950 ml 240 ml Balance 360 ml 240 ml 1950 ml 240 ml Intake Oral 360 ml 240 ml 1950 ml 240 ml # Voids 0 5 2 Result Diagram: 02/17/17203902/19/17838 Objective Remarks GENERAL: This is a well-nourished, well-developed patient, in no apparent distress. CARDIOVASCULAR: Regular rate and regular rhythm without murmurs, gallops, or rubs. RESPIRATORY: Clear to auscultation. Breath sounds equal bilaterally. No wheezes , rales, or rhonchi. GASTROINTESTINAL: Abdomen soft, non-tender, nondistended. Normal, active bowel sounds MUSCULOSKELETAL: Extremities without clubbing, cyanosis, or edema. NEURO: Awake and alert. Medications and IVs Current Medications Trimethoprim/ Sulfamethoxazole (Bactrim Ds 800-160 Mg) 1 tab ONCE ONCE PO Last administered on 02/18/17t 02:07; Start 02/18/17 at 02:00; Stop 02/18/17 at 02:01; Status DC Acetaminophen (Tylenol) 650 mg Q4H PRN PO Pain 1-5 or Temp >101F; Start at 10:00 Magnesium Hydroxide (Milk Of Magnesia Liq) 30 ml DAILY PRN PO CONSTIPATION; Start 02/18/17 at 10:00 Al Hydrox/Mg Hydrox/Simethicone (Mag-Al Plus Susp Liq) 30 ml Q6H PRN PO DYSPEPSIA; Start 02/18/17 at 10:00 Nicotine (Habitrol 21 Mg Patch.24 Hr) 1 patch DAILY T-DERMAL ; Start 02/19/17 at 09:00 Quetiapine Fumarate (SEROquel) 12.5 mg BID@09,12 PO Last administered on 12:00; Start 02/19/17 at 09:00; Stop 02/20/17 at 16:18; Status DC Miscellaneous (Pill Splitter) 1 ea UNSCH PRN OTHER SEE LABEL COMMENTS; Start 02/18/17 at 15:00 Atorvastatin Calcium (Lipitor) 40 mg HS PO Last administered on 02/20/17 21: 33; Start 02/18/17 at 21:00 Gabapentin (Neurontin) 600 mg TID PO Last administered on 02/21/17 09:40; Start 02/18/17 at 18:00 Clonidine (Catapres) 0.1 mg Q6H PRN PO SBP> OR = 180, DBP> OR = 100; Start at 18:00 Lorazepam (Ativan) 2 mg NOW PO ; Start 02/18/17 at 23:15; Stop 02/19/17 at 01: 00; Status DC Lorazepam (Ativan Inj) 2 mg NOW IM ; Start 02/18/17 at 23:15; Stop 02/19/17 at 01:00; Status DC Dextrose (D50w (Vial) Inj) 50 ml UNSCH PRN IV PUSH HYPOGLYCEMIA-SEE COMMENTS; Start 02/20/17 at 12:15 Glucagon (Glucagon Inj) 1 mg UNSCH PRN OTHER HYPOGLYCEMIA-SEE COMMENTS; Start 02/20/17 at 12:15 Insulin Aspart (NovoLOG SUPPLEMENTAL SCALE) 1 ACHS SLIDING SCALE SQ Last administered on 02/20/17 16:27; Start 02/20/17 at 17:00 Quetiapine Fumarate (SEROquel) 25 mg BID@,12 PO Last administered on 09:41; Start 02/21/17 at 09:00 A/P Assessment and Plan A/P abnormal UA- asymptomatic and UC with mixed bacteria- no need for abx. Diabetes: A1c is 11.1. continue accu-check with SSI for now- will follow the trend and decide about diabetes regimen. Hypertension. Currently normotensive. Does not appear that she was on any antihypertensives at home. Hyperlipidemia: Continue atorvastatin Patient was on multiple antidepressants and anxiolytics. Will defer to psych. Pastor Aquino MD Feb 21, 2017 09:53
--- NOTE | 2017-02-21 14:07 | HHI.PYPN ---
Subjective Remarks He was seen today for psychiatric reevaluation, patient is found in the recreational area of the unit, patient reports good mood, she says that she is very happy, reports that she enjoys being in the unit, but she would like to be discharged back home. Patient does not seem to be aware of the reason of her hospitalization. She continues to report visual hallucinations of bugs in the floor and crawling in her skin, however she denies distressed and anxiety due to this perceptual disturbance. No paranoia, no agitation, no aggressive behavior has been reported or observed. She is complaining of medications, no significant side effects. Patient is oriented 3, no attention deficit, no gross cognitive impairment present. Chief Complaint: There are a lot of bugs crwling in the floor Review of Systems Except as stated in HPI: all other systems reviewed are Neg Mental Status Examination Appearance: Appropriate Consciousness: Alert Orientation: x4 Motor Activity: Normal gait Speech: Unremarkable Language: Adequate Fund of Knowledge: Inadequate Attention and Concentration: Adequate Memory: Impaired Mood: Appropriate Affect: Appropriate Thought Process & Associations: Tangential Thought Content: Bizarre thinking, Hallucinations (worms) Hallucination Type: Visual Delusion Type: Paranoid Suicidal Ideation: No Suicidal Plan: No Suicidal Intention: No Homicidal Ideation: No Homicidal Plan: No Homicidal Intention: No Insight: Adequate Judgment: Adequate Results Labs Date/Time Source Procedure Growth Status 02/17/17 20:40 Urine Clean Catch Urine Culture - Final 50-100,000 CFU/ML MIXED GRAM POSITIVE... Complete Vitals/IOs Vital Signs Date Time Temp Pulse Resp B/P (MAP) Pulse Ox O2 Delivery O2 Flow Rate FiO2 02/21/17 06:00 97.7 73 18 144/69 (94) 96 02/18/17 02:23 Room Air Intake and Output 02/21/17 02/21/17 02/22/17 08:00 16:00 00:00 Intake Total 240 ml 480 ml Balance 240 ml 480 ml Assessment & Plan Problem List: (1) Unspecified psychosis ICD Codes: F29 - Unspecified psychosis not due to a substance or known physiological condition Assessment & Plan: Will discontinue Seroquel 25 mg twice a day, will start risperidone 0.5 mg twice a day, since risperidone has better reported benefit in delusional disorder. Assessment & Plan Estimated LOS: days Justification for Cont. Inpt. Patient is acutely psychotic, needs to continue psychiatric hospitalization for stabilization. Lonny Palencia MD Feb 21, 2017 14:07
[2017-02-21 18:54] VITALS: BP 169/77; PULSE 75; RESP 18; TEMP 97.5; O2SAT 96
[2017-02-21 19:54] LABS: BICARBONATE 33.7 MEQ/L (21.0-32.0); POTASSIUM 4.6 MEQ/L (3.5-5.1)
[2017-02-21] MEDS ORDERED: risperiDONE 0.5 MG TAB PO SCH (21:00)
[2017-02-21] MEDS: ATORVASTATIN 40 MG TAB PO SCH (21:23)
[2017-02-22 06:32] VITALS: BP 117/69; PULSE 93; RESP 17; TEMP 97.7; O2SAT 97
[2017-02-22] MEDS: INSULIN ASPART SUPPLEMENTAL SCALE SQ SCH ×4 (08:05→21:44)
[2017-02-22] MEDS: NICOTINE 21 MG/24 HR PATCH T-DERMAL SCH (09:00)
[2017-02-22] MEDS: GABAPENTIN 300 MG CAP PO SCH ×3 (09:00→18:07)
--- NOTE | 2017-02-22 09:29 | HHI.PR ---
Subjective Remarks in no distress. denies pain. no new complaints. Objective Vitals Vital Signs Date Time Temp Pulse Resp B/P (MAP) Pulse Ox O2 Delivery O2 Flow Rate FiO2 02/22/17 06:32 97.7 93 17 117/69 (85) 97 02/21/17 18:54 97.5 75 18 169/77 (107) 96 I/O 02/21/17 02/21/17 02/21/17 02/22/17 02/22/17 02/22/17 07:00 15:00 23:00 07:00 15:00 23:00 Intake Total 720 ml 1230 ml 360 ml Balance 720 ml 1230 ml 360 ml Intake Oral 720 ml 1230 ml 360 ml # Voids 2 1 1 Result Diagram: 02/21/171826 Objective Remarks GENERAL: This is a well-nourished, well-developed patient, in no apparent distress. CARDIOVASCULAR: Regular rate and regular rhythm without murmurs, gallops, or rubs. RESPIRATORY: Clear to auscultation. Breath sounds equal bilaterally. No wheezes , rales, or rhonchi. GASTROINTESTINAL: Abdomen soft, non-tender, nondistended. Normal, active bowel sounds MUSCULOSKELETAL: Extremities without clubbing, cyanosis, or edema. NEURO: Awake and alert. Medications and IVs Current Medications Trimethoprim/ Sulfamethoxazole (Bactrim Ds 800-160 Mg) 1 tab ONCE ONCE PO Last administered on 02/18/17 02:07; Start 02/18/17 at 02:00; Stop 02/18/17 at 02:01; Status DC Acetaminophen (Tylenol) 650 mg Q4H PRN PO Pain 1-5 or Temp >101F; Start at 10:00 Magnesium Hydroxide (Milk Of Magnesia Liq) 30 ml DAILY PRN PO CONSTIPATION; Start 02/18/17 at 10:00 Al Hydrox/Mg Hydrox/Simethicone (Mag-Al Plus Susp Liq) 30 ml Q6H PRN PO DYSPEPSIA; Start 02/18/17 at 10:00 Nicotine (Habitrol 21 Mg Patch.24 Hr) 1 patch DAILY T-DERMAL ; Start 02/19/17 at 09:00 Quetiapine Fumarate (SEROquel) 12.5 mg BID@09,12 PO Last administered on 12:00; Start 02/19/17 at 09:00; Stop 02/20/17 at 16:18; Status DC Miscellaneous (Pill Splitter) 1 ea UNSCH PRN OTHER SEE LABEL COMMENTS; Start 02/18/17 at 15:00 Atorvastatin Calcium (Lipitor) 40 mg HS PO Last administered on 02/21/17 21: 23; Start 02/18/17 at 21:00 Gabapentin (Neurontin) 600 mg TID PO Last administered on 02/21/17 17:26; Start 02/18/17 at 18:00 Clonidine (Catapres) 0.1 mg Q6H PRN PO SBP> OR = 180, DBP> OR = 100; Start at 18:00 Lorazepam (Ativan) 2 mg NOW PO ; Start 02/18/17 at 23:15; Stop 02/19/17 at 01: 00; Status DC Lorazepam (Ativan Inj) 2 mg NOW IM ; Start 02/18/17 at 23:15; Stop 02/19/17 at 01:00; Status DC Dextrose (D50w (Vial) Inj) 50 ml UNSCH PRN IV PUSH HYPOGLYCEMIA-SEE COMMENTS; Start 02/20/17 at 12:15 Glucagon (Glucagon Inj) 1 mg UNSCH PRN OTHER HYPOGLYCEMIA-SEE COMMENTS; Start 02/20/17 at 12:15 Insulin Aspart (NovoLOG SUPPLEMENTAL SCALE) 1 ACHS SLIDING SCALE SQ Last administered on 02/22/17 08:05; Start 02/20/17 at 17:00 Quetiapine Fumarate (SEROquel) 25 mg BID@09,12 PO Last administered on 09:41; Start 02/21/17 at 09:00; Stop 02/21/17 at 14:04; Status DC Risperidone (risperDAL) 0.5 mg BID PO ; Start 02/21/17 at 21:00; Status Future Hold A/P Assessment and Plan A/P abnormal UA- asymptomatic and UC with mixed bacteria- no need for abx. Diabetes: A1c is 11.1. restart glyburide 2.5 mg daily- continue accu-check with SSI for now- will follow the trend adjust the regimen as needed. Hypertension. overall controlled. Does not appear that she was on any antihypertensives at home. Hyperlipidemia: Continue atorvastatin Patient was on multiple antidepressants and anxiolytics. Will defer to psych. Pastor Aquino MD Feb 22, 2017 09:29
--- NOTE | 2017-02-22 14:04 | HHI.PYPN ---
Subjective Chief Complaint: There are a lot of bugs crwling in the floor Remarks Patient seen today for psychiatric reevaluation, discussed with nurse in charge also with social welfare administrator. Patient continues to be psychotic, stating that both are coming inside her mouth, she put her finger inside her mouth, grabbed a little piece of food stating that "can you see doctor this is a real worn and it can also fly". She is also paranoia stating that "many of these people here one to get insight medical when I am sleeping" other than her delusional, patient is calm, cooperative, very pleasant. Fully oriented 3, she is compliant with medications, no significant side effects. Review of Systems Except as stated in HPI: all other systems reviewed are Neg Mental Status Examination Appearance: Appropriate Consciousness: Alert Orientation: x4 Motor Activity: Normal gait Speech: Unremarkable Language: Adequate Fund of Knowledge: Inadequate Attention and Concentration: Adequate Memory: Impaired Mood: Appropriate Affect: Appropriate Thought Process & Associations: Tangential Thought Content: Bizarre thinking, Hallucinations (worms) Hallucination Type: Visual Delusion Type: Paranoid Suicidal Ideation: No Suicidal Plan: No Suicidal Intention: No Homicidal Ideation: No Homicidal Plan: No Homicidal Intention: No Insight: Adequate Judgment: Adequate Results Labs Test 02/21/17 18:27 Blood Urea Nitrogen 16 MG/DL Creatinine 0.63 MG/DL Random Glucose 187 MG/DL Calcium Level 9.6 MG/DL Sodium Level 139 MEQ/L Potassium Level 4.6 MEQ/L Chloride Level 101 MEQ/L Carbon Dioxide Level 33.7 MEQ/L Anion Gap 4 MEQ/L Estimat Glomerular Filtration Rate 110 ML/MIN Date/Time Source Procedure Growth Status 02/17/17 20:40 Urine Clean Catch Urine Culture - Final 50-100,000 CFU/ML MIXED GRAM POSITIVE... Complete Vitals/IOs Vital Signs Date Time Temp Pulse Resp B/P (MAP) Pulse Ox O2 Delivery O2 Flow Rate FiO2 02/22/17 06:32 97.7 93 17 117/69 (85) 97 Intake and Output 02/22/17 02/22/17 02/23/17 08:00 16:00 00:00 Intake Total 360 ml 0 ml Balance 360 ml 0 ml Assessment & Plan Problem List: (1) Unspecified psychosis ICD Codes: F29 - Unspecified psychosis not due to a substance or known physiological condition Assessment & Plan: Continue Risperdal 0.5 mg twice a day for psychotic symptoms. Insight oriented psychotherapy provided. Assessment & Plan Estimated LOS: days Justification for Cont. Inpt. Patient is acutely psychotic, needs continue psychiatric hospitalization for stabilization. Lonny Palencia MD Feb 22, 2017 14:04
[2017-02-22 18:45] VITALS: BP 136/62; PULSE 76; RESP 16; TEMP 98.1; O2SAT 96
[2017-02-22] MEDS: risperiDONE 0.5 MG TAB PO SCH (20:47)
[2017-02-22] MEDS: ATORVASTATIN 40 MG TAB PO SCH (20:47)
[2017-02-23 06:52] VITALS: BP 142/75; PULSE 75; RESP 17; TEMP 97.5; O2SAT 97
[2017-02-23] MEDS: ALUMINUM/MAGNESIUM/SIMETH 30 ML CUP PO PRN (08:00)
[2017-02-23] MEDS: INSULIN ASPART SUPPLEMENTAL SCALE SQ SCH ×4 (08:00→20:52)
[2017-02-23] MEDS: NICOTINE 21 MG/24 HR PATCH T-DERMAL SCH (08:12)
[2017-02-23] MEDS: GABAPENTIN 300 MG CAP PO SCH ×3 (08:52→16:59)
[2017-02-23] MEDS: risperiDONE 0.5 MG TAB PO SCH (08:52)
[2017-02-23] MEDS: glyBURIDE 2.5 MG TAB PO SCH (08:52)
--- NOTE | 2017-02-23 10:58 | HHI.PR ---
Subjective Remarks in no acute distress. d/w the RN; reportedly had some questionable emesis earlier today. denies abdominal pain. blood sugar trend noted. Objective Vitals Vital Signs Date Time Temp Pulse Resp B/P (MAP) Pulse Ox O2 Delivery O2 Flow Rate FiO2 02/23/17 06:52 97.5 75 17 142/75 (97) 97 02/22/17 18:45 98.1 76 16 136/62 (86) 96 I/O 02/22/17 02/22/17 02/22/17 02/23/17 02/23/17 02/23/17 07:00 15:00 23:00 07:00 15:00 23:00 Intake Total 840 ml 960 ml 0 ml Balance 840 ml 960 ml 0 ml Intake Oral 840 ml 960 ml 0 ml # Voids 1 2 2 1 Result Diagram: 02/21/171826 Objective Remarks GENERAL: This is a well-nourished, well-developed patient, in no apparent distress. CARDIOVASCULAR: Regular rate and regular rhythm without murmurs, gallops, or rubs. RESPIRATORY: Clear to auscultation. Breath sounds equal bilaterally. No wheezes , rales, or rhonchi. GASTROINTESTINAL: Abdomen soft, non-tender, nondistended. Normal, active bowel sounds MUSCULOSKELETAL: Extremities without clubbing, cyanosis, or edema. NEURO: Awake and alert. Medications and IVs Current Medications Trimethoprim/ Sulfamethoxazole (Bactrim Ds 800-160 Mg) 1 tab ONCE ONCE PO Last administered on 02/18/17 02:07; Start 02/18/17 at 02:00; Stop 02/18/17 at 02:01; Status DC Acetaminophen (Tylenol) 650 mg Q4H PRN PO Pain 1-5 or Temp >101F; Start at 10:00 Magnesium Hydroxide (Milk Of Magnesia Liq) 30 ml DAILY PRN PO CONSTIPATION; Start 02/18/17 at 10:00 Al Hydrox/Mg Hydrox/Simethicone (Mag-Al Plus Susp Liq) 30 ml Q6H PRN PO DYSPEPSIA Last administered on 02/23/17 08:00; Start 02/18/17 at 10:00 Nicotine (Habitrol 21 Mg Patch.24 Hr) 1 patch DAILY T-DERMAL ; Start 02/19/17 at 09:00 Quetiapine Fumarate (SEROquel) 12.5 mg BID@09,12 PO Last administered on 12:00; Start 02/19/17 at 09:00; Stop 02/20/17 at 16:18; Status DC Miscellaneous (Pill Splitter) 1 ea UNSCH PRN OTHER SEE LABEL COMMENTS; Start 02/18/17 at 15:00 Atorvastatin Calcium (Lipitor) 40 mg HS PO Last administered on 02/22/17 20: 47; Start 02/18/17 at 21:00 Gabapentin (Neurontin) 600 mg TID PO Last administered on 02/23/17 08:52; Start 02/18/17 at 18:00 Clonidine (Catapres) 0.1 mg Q6H PRN PO SBP> OR = 180, DBP> OR = 100; Start at 18:00 Lorazepam (Ativan) 2 mg NOW PO ; Start 02/18/17 at 23:15; Stop 02/19/17 at 01: 00; Status DC Lorazepam (Ativan Inj) 2 mg NOW IM ; Start 02/18/17 at 23:15; Stop 02/19/17 at 01:00; Status DC Dextrose (D50w (Vial) Inj) 50 ml UNSCH PRN IV PUSH HYPOGLYCEMIA-SEE COMMENTS; Start 02/20/17 at 12:15 Glucagon (Glucagon Inj) 1 mg UNSCH PRN OTHER HYPOGLYCEMIA-SEE COMMENTS; Start 02/20/17 at 12:15 Insulin Aspart (NovoLOG SUPPLEMENTAL SCALE) 1 ACHS SLIDING SCALE SQ Last administered on 02/23/17 08:00; Start 02/20/17 at 17:00 Quetiapine Fumarate (SEROquel) 25 mg BID@09,12 PO Last administered on 09:41; Start 02/21/17 at 09:00; Stop 02/21/17 at 14:04; Status DC Risperidone (risperDAL) 0.5 mg BID PO ; Start 02/21/17 at 21:00; Stop at 16:35; Status DC Glyburide (Diabeta) 2.5 mg DAILYAC PO Last administered on 02/23/17 08:52; Start 02/23/17 at 08:00 Risperidone (risperDAL) 0.5 mg BID PO Last administered on 02/23/17t 08:52; Start 02/22/17 at 21:00 A/P Assessment and Plan A/P questionable emesis vs acid reflux- start on PPI- will monitor. Diabetes: A1c is 11.1. restarted glyburide 2.5 mg daily- continue accu-check with SSI for now- change the diet to 1800 beka ADA. will follow the trend adjust the regimen as needed. abnormal UA- asymptomatic and UC with mixed bacteria- no need for abx. Hypertension. Does not appear that she was on any antihypertensives at home. continue to monitor- will consider starting BLAS if BP remains elevated. Hyperlipidemia: Continue atorvastatin Patient was on multiple antidepressants and anxiolytics. Will defer to psych. Pastor Aquino MD Feb 23, 2017 10:58
--- NOTE | 2017-02-23 11:31 | HHI.PYPN ---
Subjective Chief Complaint: There are a lot of bugs crwling in the floor Remarks Patient was seen today for psychiatric reevaluation, she also was seeing and Lakshmi criag. Patient was calm, cooperative, very pleasant, she continues to be embedded in the delusional thinking that she has crawling bugs over her, also visual hallucinations of bugs and worms in the floor. Patient does not seem to be especially anxious or disrupted about this delusional thinking, but she lacks insight of it. She reports good mood, she denies depression, she denies anxiety, she denies suicidal and homicidal ideation, she denies auditory hallucinations. Patient is fully oriented 3, no fluctuation of consciousness, no attention deficit, no gross cognitive impairment present. Review of Systems Except as stated in HPI: all other systems reviewed are Neg Mental Status Examination Appearance: Appropriate Consciousness: Alert Orientation: x4 Motor Activity: Normal gait Speech: Unremarkable Language: Adequate Fund of Knowledge: Inadequate Attention and Concentration: Adequate Memory: Impaired Mood: Appropriate Affect: Appropriate Thought Process & Associations: Tangential Thought Content: Bizarre thinking, Hallucinations (worms) Hallucination Type: Visual Delusion Type: Paranoid Suicidal Ideation: No Suicidal Plan: No Suicidal Intention: No Homicidal Ideation: No Homicidal Plan: No Homicidal Intention: No Insight: Adequate Judgment: Adequate Results Labs Date/Time Source Procedure Growth Status 02/17/17 20:40 Urine Clean Catch Urine Culture - Final 50-100,000 CFU/ML MIXED GRAM POSITIVE... Complete Vitals/IOs Vital Signs Date Time Temp Pulse Resp B/P (MAP) Pulse Ox O2 Delivery O2 Flow Rate FiO2 02/23/17 06:52 97.5 75 17 142/75 (97) 97 Intake and Output 02/23/17 02/23/17 02/24/17 08:00 16:00 00:00 Intake Total 0 ml Balance 0 ml Assessment & Plan Problem List: (1) Unspecified psychosis ICD Codes: F29 - Unspecified psychosis not due to a substance or known physiological condition Assessment & Plan: Will increase Risperdal 1 mg twice a day. Insight oriented psychotherapy provided. As per Lakshmi villanueva patient will continue involuntary psychiatric admission until she reaches stabilization. Assessment & Plan Estimated LOS: days Justification for Cont. Inpt. Patient is acutely psychotic, she needs to continue psychiatric hospitalization for stabilization. Lonny Palencia MD Feb 23, 2017 11:31
[2017-02-23] MEDS: PANTOPRAZOLE SOD 20 MG DELAYED RELEASE TAB PO SCH (13:00)
[2017-02-23 18:17] VITALS: BP 102/51; PULSE 71; RESP 18; TEMP 97.6; O2SAT 98
[2017-02-23] MEDS: ATORVASTATIN 40 MG TAB PO SCH (20:52)
[2017-02-23] MEDS: risperiDONE 1 MG TAB PO SCH (20:52)
[2017-02-24 07:04] VITALS: BP 113/69; PULSE 86; RESP 17; TEMP 97.9; O2SAT 96
[2017-02-24] MEDS: INSULIN ASPART SUPPLEMENTAL SCALE SQ SCH ×4 (08:00→21:00)
[2017-02-24] MEDS: glyBURIDE 2.5 MG TAB PO SCH (08:14)
[2017-02-24] MEDS: NICOTINE 21 MG/24 HR PATCH T-DERMAL SCH (09:00)
[2017-02-24] MEDS: GABAPENTIN 300 MG CAP PO SCH ×3 (09:34→18:23)
[2017-02-24] MEDS: PANTOPRAZOLE SOD 20 MG DELAYED RELEASE TAB PO SCH (09:34)
[2017-02-24] MEDS: risperiDONE 1 MG TAB PO SCH ×2 (09:35→22:03)
--- NOTE | 2017-02-24 11:04 | HHI.PR ---
Subjective Remarks in no acute distress. denies pain. no new complaints. d/w the RN and no acute issues over night. blood sugar trend noted. Objective Vitals Vital Signs Date Time Temp Pulse Resp B/P (MAP) Pulse Ox O2 Delivery O2 Flow Rate FiO2 02/24/17 07:04 97.9 86 17 113/69 (84) 96 02/23/17 18:17 97.6 71 18 102/51 (68) 98 I/O 02/23/17 02/23/17 02/23/17 02/24/17 02/24/17 02/24/17 07:00 15:00 23:00 07:00 15:00 23:00 Intake Total 0 ml 2160 ml 0 ml Balance 0 ml 2160 ml 0 ml Intake Oral 0 ml 2160 ml 0 ml # Voids 1 1 1 Result Diagram: 02/21/171826 Objective Remarks GENERAL: This is a well-nourished, well-developed patient, in no apparent distress. CARDIOVASCULAR: Regular rate and regular rhythm without murmurs, gallops, or rubs. RESPIRATORY: Clear to auscultation. Breath sounds equal bilaterally. No wheezes , rales, or rhonchi. GASTROINTESTINAL: Abdomen soft, non-tender, nondistended. Normal, active bowel sounds MUSCULOSKELETAL: Extremities without clubbing, cyanosis, or edema. NEURO: Awake and alert. Medications and IVs Current Medications Trimethoprim/ Sulfamethoxazole (Bactrim Ds 800-160 Mg) 1 tab ONCE ONCE PO Last administered on 02/18/17 02:07; Start 02/18/17 at 02:00; Stop 02/18/17 at 02:01; Status DC Acetaminophen (Tylenol) 650 mg Q4H PRN PO Pain 1-5 or Temp >101F; Start at 10:00; Stop 02/23/17 at 15:27; Status DC Magnesium Hydroxide (Milk Of Magnesia Liq) 30 ml DAILY PRN PO CONSTIPATION; Start 02/18/17 at 10:00 Al Hydrox/Mg Hydrox/Simethicone (Mag-Al Plus Susp Liq) 30 ml Q6H PRN PO DYSPEPSIA Last administered on 02/23/17 08:00; Start 02/18/17 at 10:00 Nicotine (Habitrol 21 Mg Patch.24 Hr) 1 patch DAILY T-DERMAL ; Start 02/19/17 at 09:00 Quetiapine Fumarate (SEROquel) 12.5 mg BID@09,12 PO Last administered on 12:00; Start 02/19/17 at 09:00; Stop 02/20/17 at 16:18; Status DC Miscellaneous (Pill Splitter) 1 ea UNSCH PRN OTHER SEE LABEL COMMENTS; Start 02/18/17 at 15:00 Atorvastatin Calcium (Lipitor) 40 mg HS PO Last administered on 02/23/17 20: 52; Start 02/18/17 at 21:00 Gabapentin (Neurontin) 600 mg TID PO Last administered on 02/24/17 09:34; Start 02/18/17 at 18:00 Clonidine (Catapres) 0.1 mg Q6H PRN PO SBP> OR = 180, DBP> OR = 100; Start at 18:00 Lorazepam (Ativan) 2 mg NOW PO ; Start 02/18/17 at 23:15; Stop 02/19/17 at 01: 00; Status DC Lorazepam (Ativan Inj) 2 mg NOW IM ; Start 02/18/17 at 23:15; Stop 02/19/17 at 01:00; Status DC Dextrose (D50w (Vial) Inj) 50 ml UNSCH PRN IV PUSH HYPOGLYCEMIA-SEE COMMENTS; Start 02/20/17 at 12:15 Glucagon (Glucagon Inj) 1 mg UNSCH PRN OTHER HYPOGLYCEMIA-SEE COMMENTS; Start 02/20/17 at 12:15 Insulin Aspart (NovoLOG SUPPLEMENTAL SCALE) 1 ACHS SLIDING SCALE SQ Last administered on 02/24/17 08:00; Start 02/20/17 at 17:00 Quetiapine Fumarate (SEROquel) 25 mg BID@09,12 PO Last administered on 09:41; Start 02/21/17 at 09:00; Stop 02/21/17 at 14:04; Status DC Risperidone (risperDAL) 0.5 mg BID PO ; Start 02/21/17 at 21:00; Stop at 16:35; Status DC Glyburide (Diabeta) 2.5 mg DAILYAC PO Last administered on 02/24/17 08:14; Start 02/23/17 at 08:00 Risperidone (risperDAL) 0.5 mg BID PO Last administered on 02/23/17 08:52; Start 02/22/17 at 21:00; Stop 02/23/17 at 11:20; Status DC Pantoprazole Sodium (Protonix) 20 mg DAILY PO Last administered on 02/24/17 09:34; Start 02/23/17 at 13:00 Risperidone (risperDAL) 1 mg BID PO Last administered on 02/24/17 09:35; Start 02/23/17 at 21:00 A/P Assessment and Plan A/P questionable emesis vs acid reflux- start on PPI- will monitor. Diabetes: A1c is 11.1. blood sugar levels not optimally controlled- stop glyburide and start on levemir while inpatient- continue accu-check with SSI for now- will follow the trend adjust the regimen as needed. abnormal UA- asymptomatic and UC with mixed bacteria- no need for abx. Hypertension. Does not appear that she was on any antihypertensives at home. continue to monitor- will consider starting BLAS if BP remains elevated. Hyperlipidemia: Continue atorvastatin Patient was on multiple antidepressants and anxiolytics. Will defer to psych. Pastor Aquino MD Feb 24, 2017 11:04
[2017-02-24] MEDS: ALUMINUM/MAGNESIUM/SIMETH 30 ML CUP PO PRN (14:04)
--- NOTE | 2017-02-24 14:08 | HHI.PYPN ---
Subjective Chief Complaint: There are a lot of bugs crwling in the floor Remarks On psychiatric evaluation today patient is found in her bed, she is alert, cooperative and calm. Patient reports that she feels okay, she says that she has been work for me, because she wants me to tell her if I know the number 13 doctor. When I asked her what does that mean, to be the #13 Dr, she says that I know what she is talking about "But you don't want to talk about it". Patient also continues to endorse parents apparently delusions, she says that there are worms and bugs everywhere he The place. She is compliant with her medications, no significant side effects. Review of Systems Except as stated in HPI: all other systems reviewed are Neg Mental Status Examination Appearance: Appropriate Consciousness: Alert Orientation: x4 Motor Activity: Normal gait Speech: Unremarkable Language: Adequate Fund of Knowledge: Inadequate Attention and Concentration: Adequate Memory: Impaired Mood: Appropriate Affect: Appropriate Thought Process & Associations: Tangential Thought Content: Bizarre thinking, Hallucinations (worms) Hallucination Type: Visual Delusion Type: Paranoid Suicidal Ideation: No Suicidal Plan: No Suicidal Intention: No Homicidal Ideation: No Homicidal Plan: No Homicidal Intention: No Insight: Adequate Judgment: Adequate Results Labs Date/Time Source Procedure Growth Status 02/17/17 20:40 Urine Clean Catch Urine Culture - Final 50-100,000 CFU/ML MIXED GRAM POSITIVE... Complete Vitals/IOs Vital Signs Date Time Temp Pulse Resp B/P (MAP) Pulse Ox O2 Delivery O2 Flow Rate FiO2 02/24/17 07:04 97.9 86 17 113/69 (84) 96 Intake and Output 02/24/17 02/24/17 02/25/17 08:00 16:00 00:00 Intake Total 0 ml 240 ml Balance 0 ml 240 ml Assessment & Plan Problem List: (1) Unspecified psychosis ICD Codes: F29 - Unspecified psychosis not due to a substance or known physiological condition Assessment & Plan Estimated LOS: days Justification for Cont. Inpt. Patient continues to be acutely psychotic, very paranoid and internally preoccupied. She needs to continue psychotic hospitalization for stabilization and safety. Lonny Palencia MD Feb 24, 2017 14:08
[2017-02-24 20:28] VITALS: BP 142/66; PULSE 77; RESP 17; TEMP 98.1
[2017-02-24] MEDS ORDERED: INSULIN DETEMIR 100 UNITS/ML VIAL SQ SCH (21:00)
[2017-02-24] MEDS: ATORVASTATIN 40 MG TAB PO SCH (22:02)
[2017-02-25 06:48] VITALS: BP 102/55; PULSE 89; RESP 16; TEMP 98; O2SAT 95
[2017-02-25] MEDS: INSULIN ASPART SUPPLEMENTAL SCALE SQ SCH ×4 (07:55→20:49)
[2017-02-25] MEDS: NICOTINE 21 MG/24 HR PATCH T-DERMAL SCH (09:00)
[2017-02-25] MEDS: GABAPENTIN 300 MG CAP PO SCH ×3 (10:33→18:29)
[2017-02-25] MEDS: risperiDONE 1 MG TAB PO SCH ×2 (10:33→20:49)
[2017-02-25] MEDS: PANTOPRAZOLE SOD 20 MG DELAYED RELEASE TAB PO SCH (10:33)
--- NOTE | 2017-02-25 12:39 | HHI.PYPN ---
Subjective Chief Complaint: psychosis Remarks Pt seen and discussed with staff. She continues to improve per staff and has been more organized today. No behavioral problems.She tells MD and RN a convoluted story with a hyperreligious focus about the significance of the " 13th doctor". No SI/HI. Mental Status Examination Appearance: Appropriate Consciousness: Alert Orientation: x4 Motor Activity: Normal gait Speech: Unremarkable Language: Adequate Fund of Knowledge: Inadequate Attention and Concentration: Adequate Memory: Impaired Mood: Appropriate Affect: Appropriate Thought Process & Associations: Linear Thought Content: Bizarre thinking Hallucination Type: None Delusion Type: Paranoid Suicidal Ideation: No Suicidal Plan: No Suicidal Intention: No Homicidal Ideation: No Homicidal Plan: No Homicidal Intention: No Insight: Adequate Judgment: Adequate Results Labs Date/Time Source Procedure Growth Status 02/17/17 20:40 Urine Clean Catch Urine Culture - Final 50-100,000 CFU/ML MIXED GRAM POSITIVE... Complete Vitals/IOs Vital Signs Date Time Temp Pulse Resp B/P (MAP) Pulse Ox O2 Delivery O2 Flow Rate FiO2 02/25/17 06:48 98.0 89 16 102/55 (71) 95 Intake and Output 02/25/17 02/25/17 02/26/17 08:00 16:00 00:00 Intake Total 240 ml Balance 240 ml Assessment & Plan Problem List: (1) Unspecified psychosis ICD Codes: F29 - Unspecified psychosis not due to a substance or known physiological condition Assessment & Plan Continue current tx plan Justification for Cont. Inpt. impairments in reality testing Christina Herrera MD Feb 25, 2017 12:38
--- NOTE | 2017-02-25 12:51 | HHI.PR ---
Subjective Remarks in no distress. denies pain. no new complaints. Objective Vitals Vital Signs Date Time Temp Pulse Resp B/P (MAP) Pulse Ox O2 Delivery O2 Flow Rate FiO2 02/25/17 06:48 98.0 89 16 102/55 (71) 95 02/24/17 20:28 98.1 77 17 142/66 (91) I/O 02/24/17 02/24/17 02/24/17 02/25/17 02/25/17 02/25/17 07:00 15:00 23:00 07:00 15:00 23:00 Intake Total 240 ml 460 ml 0 ml 250 ml Balance 240 ml 460 ml 0 ml 250 ml Intake Oral 240 ml 460 ml 0 ml 250 ml # Voids 1 1 # Bowel Movements 0 Result Diagram: 02/21/171826 Objective Remarks GENERAL: This is a well-nourished, well-developed patient, in no apparent distress. CARDIOVASCULAR: Regular rate and regular rhythm without murmurs, gallops, or rubs. RESPIRATORY: Clear to auscultation. Breath sounds equal bilaterally. No wheezes , rales, or rhonchi. GASTROINTESTINAL: Abdomen soft, non-tender, nondistended. Normal, active bowel sounds MUSCULOSKELETAL: Extremities without clubbing, cyanosis, or edema. NEURO: Awake and alert. Medications and IVs Current Medications Trimethoprim/ Sulfamethoxazole (Bactrim Ds 800-160 Mg) 1 tab ONCE ONCE PO Last administered on 02/18/17 02:07; Start 02/18/17 at 02:00; Stop 02/18/17 at 02:01; Status DC Acetaminophen (Tylenol) 650 mg Q4H PRN PO Pain 1-5 or Temp >101F; Start at 10:00; Stop 02/23/17 at 15:27; Status DC Magnesium Hydroxide (Milk Of Magnesia Liq) 30 ml DAILY PRN PO CONSTIPATION; Start 02/18/17 at 10:00 Al Hydrox/Mg Hydrox/Simethicone (Mag-Al Plus Susp Liq) 30 ml Q6H PRN PO DYSPEPSIA Last administered on 02/24/17 14:04; Start 02/18/17 at 10:00 Nicotine (Habitrol 21 Mg Patch.24 Hr) 1 patch DAILY T-DERMAL ; Start 02/19/17 at 09:00 Quetiapine Fumarate (SEROquel) 12.5 mg BID@09,12 PO Last administered on 12:00; Start 02/19/17 at 09:00; Stop 02/20/17 at 16:18; Status DC Miscellaneous (Pill Splitter) 1 ea UNSCH PRN OTHER SEE LABEL COMMENTS; Start 02/18/17 at 15:00 Atorvastatin Calcium (Lipitor) 40 mg HS PO Last administered on 02/24/17 22: 02; Start 02/18/17 at 21:00 Gabapentin (Neurontin) 600 mg TID PO Last administered on 02/25/17 10:33; Start 02/18/17 at 18:00 Clonidine (Catapres) 0.1 mg Q6H PRN PO SBP> OR = 180, DBP> OR = 100; Start at 18:00 Lorazepam (Ativan) 2 mg NOW PO ; Start 02/18/17 at 23:15; Stop 02/19/17 at 01: 00; Status DC Lorazepam (Ativan Inj) 2 mg NOW IM ; Start 02/18/17 at 23:15; Stop 02/19/17 at 01:00; Status DC Dextrose (D50w (Vial) Inj) 50 ml UNSCH PRN IV PUSH HYPOGLYCEMIA-SEE COMMENTS; Start 02/20/17 at 12:15 Glucagon (Glucagon Inj) 1 mg UNSCH PRN OTHER HYPOGLYCEMIA-SEE COMMENTS; Start 02/20/17 at 12:15 Insulin Aspart (NovoLOG SUPPLEMENTAL SCALE) 1 ACHS SLIDING SCALE SQ Last administered on 02/25/17 11:29; Start 02/20/17 at 17:00 Quetiapine Fumarate (SEROquel) 25 mg BID@09,12 PO Last administered on 09:41; Start 02/21/17 at 09:00; Stop 02/21/17 at 14:04; Status DC Risperidone (risperDAL) 0.5 mg BID PO ; Start 02/21/17 at 21:00; Stop at 16:35; Status DC Glyburide (Diabeta) 2.5 mg DAILYAC PO Last administered on 02/24/17 08:14; Start 02/23/17 at 08:00; Stop 02/24/17 at 11:05; Status DC Risperidone (risperDAL) 0.5 mg BID PO Last administered on 02/23/17 08:52; Start 02/22/17 at 21:00; Stop 02/23/17 at 11:20; Status DC Pantoprazole Sodium (Protonix) 20 mg DAILY PO Last administered on 02/25/17 10:33; Start 02/23/17 at 13:00 Risperidone (risperDAL) 1 mg BID PO Last administered on 02/25/17 10:33; Start 02/23/17 at 21:00 Insulin Detemir (Levemir Inj) 5 units HS SQ Last administered on 02/24/17 21: 00; Start 02/24/17 at 21:00 A/P Assessment and Plan A/P questionable emesis vs acid reflux- start on PPI- resolved. Diabetes: A1c is 11.1. blood sugar levels not optimally controlled- stopped glyburide and started on levemir; increase to 10 units subq qhs- while inpatient- continue accu-check with SSI for now- will follow the trend adjust the regimen as needed. abnormal UA- asymptomatic and UC with mixed bacteria- no need for abx. Hypertension. Does not appear that she was on any antihypertensives at home. continue to monitor- will consider starting BLAS if BP remains elevated. Hyperlipidemia: Continue atorvastatin Patient was on multiple antidepressants and anxiolytics. Will defer to psych. Pastor Aquion MD Feb 25, 2017 12:51
[2017-02-25 16:00] VITALS: BP 99/56; PULSE 76; RESP 18; TEMP 97.9; O2SAT 95
[2017-02-25] MEDS: ATORVASTATIN 40 MG TAB PO SCH (20:49)
[2017-02-25] MEDS: INSULIN DETEMIR 100 UNITS/ML VIAL SQ SCH (20:49)
[2017-02-26 06:00] VITALS: BP 127/66; PULSE 88; RESP 15; TEMP 97.8; O2SAT 99
[2017-02-26] MEDS: INSULIN ASPART SUPPLEMENTAL SCALE SQ SCH ×4 (07:45→21:45)
[2017-02-26] MEDS: NICOTINE 21 MG/24 HR PATCH T-DERMAL SCH (09:00)
[2017-02-26] MEDS: GABAPENTIN 300 MG CAP PO SCH ×3 (09:48→18:01)
[2017-02-26] MEDS: PANTOPRAZOLE SOD 20 MG DELAYED RELEASE TAB PO SCH (09:49)
[2017-02-26] MEDS: risperiDONE 1 MG TAB PO SCH ×2 (09:49→21:44)
--- NOTE | 2017-02-26 10:28 | HHI.PR ---
Subjective Remarks in no acute distress. no new complaints. blood sugar trend noted. d/w the RN and no acute issues over night. Objective Vitals Vital Signs Date Time Temp Pulse Resp B/P (MAP) Pulse Ox O2 Delivery O2 Flow Rate FiO2 02/26/17 06:00 97.8 88 15 127/66 (86) 99 02/25/17 16:00 97.9 76 18 99/56 (70) 95 I/O 02/25/17 02/25/17 02/25/17 02/26/17 02/26/17 02/26/17 07:00 15:00 23:00 07:00 15:00 23:00 Intake Total 0 ml 250 ml 730 ml Balance 0 ml 250 ml 730 ml Intake Oral 0 ml 250 ml 730 ml # Voids 1 5 1 # Bowel Movements 0 Objective Remarks GENERAL: This is a well-nourished, well-developed patient, in no apparent distress. CARDIOVASCULAR: Regular rate and regular rhythm without murmurs, gallops, or rubs. RESPIRATORY: Clear to auscultation. Breath sounds equal bilaterally. No wheezes , rales, or rhonchi. GASTROINTESTINAL: Abdomen soft, non-tender, nondistended. Normal, active bowel sounds MUSCULOSKELETAL: Extremities without clubbing, cyanosis, or edema. NEURO: Awake and alert. Medications and IVs Current Medications Trimethoprim/ Sulfamethoxazole (Bactrim Ds 800-160 Mg) 1 tab ONCE ONCE PO Last administered on 02/18/17 02:07; Start 02/18/17 at 02:00; Stop 02/18/17 at 02:01; Status DC Acetaminophen (Tylenol) 650 mg Q4H PRN PO Pain 1-5 or Temp >101F; Start at 10:00; Stop 02/23/17 at 15:27; Status DC Magnesium Hydroxide (Milk Of Magnesia Liq) 30 ml DAILY PRN PO CONSTIPATION; Start 02/18/17 at 10:00 Al Hydrox/Mg Hydrox/Simethicone (Mag-Al Plus Susp Liq) 30 ml Q6H PRN PO DYSPEPSIA Last administered on 02/24/17 14:04; Start 02/18/17 at 10:00 Nicotine (Habitrol 21 Mg Patch.24 Hr) 1 patch DAILY T-DERMAL ; Start 02/19/17 at 09:00 Quetiapine Fumarate (SEROquel) 12.5 mg BID@09,12 PO Last administered on 12:00; Start 02/19/17 at 09:00; Stop 02/20/17 at 16:18; Status DC Miscellaneous (Pill Splitter) 1 ea UNSCH PRN OTHER SEE LABEL COMMENTS; Start 02/18/17 at 15:00 Atorvastatin Calcium (Lipitor) 40 mg HS PO Last administered on 02/25/17 20: 49; Start 02/18/17 at 21:00 Gabapentin (Neurontin) 600 mg TID PO Last administered on 02/26/17 09:48; Start 02/18/17 at 18:00 Clonidine (Catapres) 0.1 mg Q6H PRN PO SBP> OR = 180, DBP> OR = 100; Start at 18:00 Lorazepam (Ativan) 2 mg NOW PO ; Start 02/18/17 at 23:15; Stop 02/19/17 at 01: 00; Status DC Lorazepam (Ativan Inj) 2 mg NOW IM ; Start 02/18/17 at 23:15; Stop 02/19/17 at 01:00; Status DC Dextrose (D50w (Vial) Inj) 50 ml UNSCH PRN IV PUSH HYPOGLYCEMIA-SEE COMMENTS; Start 02/20/17 at 12:15 Glucagon (Glucagon Inj) 1 mg UNSCH PRN OTHER HYPOGLYCEMIA-SEE COMMENTS; Start 02/20/17 at 12:15 Insulin Aspart (NovoLOG SUPPLEMENTAL SCALE) 1 ACHS SLIDING SCALE SQ Last administered on 02/26/17 07:45; Start 02/20/17 at 17:00 Quetiapine Fumarate (SEROquel) 25 mg BID@09,12 PO Last administered on 09:41; Start 02/21/17 at 09:00; Stop 02/21/17 at 14:04; Status DC Risperidone (risperDAL) 0.5 mg BID PO ; Start 02/21/17 at 21:00; Stop at 16:35; Status DC Glyburide (Diabeta) 2.5 mg DAILYAC PO Last administered on 02/24/17 08:14; Start 02/23/17 at 08:00; Stop 02/24/17 at 11:05; Status DC Risperidone (risperDAL) 0.5 mg BID PO Last administered on 02/23/17 08:52; Start 02/22/17 at 21:00; Stop 02/23/17 at 11:20; Status DC Pantoprazole Sodium (Protonix) 20 mg DAILY PO Last administered on 02/26/17 09:49; Start 02/23/17 at 13:00 Risperidone (risperDAL) 1 mg BID PO Last administered on 02/26/17 09:49; Start 02/23/17 at 21:00 Insulin Detemir (Levemir Inj) 5 units HS SQ Last administered on 02/24/17 21: 00; Start 02/24/17 at 21:00; Stop 02/25/17 at 12:52; Status DC Insulin Detemir (Levemir Inj) 10 units HS SQ Last administered on 02/25/17 20 :49; Start 02/25/17 at 21:00 A/P Assessment and Plan A/P questionable emesis vs acid reflux- start on PPI- resolved. Diabetes: A1c is 11.1. blood sugar levels not optimally controlled- stopped glyburide ( home meds) and started on levemir; 10 units subq qhs- - continue accu-check with SSI . will follow the trend adjust the regimen as needed. consult breastfeeding educator. abnormal UA- asymptomatic and UC with mixed bacteria- no need for abx. Hypertension. Does not appear that she was on any antihypertensives at home. Hyperlipidemia: Continue atorvastatin Patient was on multiple antidepressants and anxiolytics. Will defer to psych. Pastor Aquino MD Feb 26, 2017 10:28
--- NOTE | 2017-02-26 12:51 | HHI.PYPN ---
Subjective Chief Complaint: psychosis Remarks Pt seen and discussed with staff. She has been cooperative and compliant with care. No behavioral problems on the unit. Less fixated on delusional statements. No SI/HI Mental Status Examination Appearance: Appropriate Consciousness: Alert Orientation: x4 Motor Activity: Normal gait Speech: Unremarkable Language: Adequate Fund of Knowledge: Inadequate Attention and Concentration: Adequate Memory: Impaired Mood: Appropriate Affect: Appropriate Thought Process & Associations: Linear Thought Content: Bizarre thinking Hallucination Type: None Delusion Type: Paranoid Suicidal Ideation: No Suicidal Plan: No Suicidal Intention: No Homicidal Ideation: No Homicidal Plan: No Homicidal Intention: No Insight: Adequate Judgment: Adequate Results Labs Date/Time Source Procedure Growth Status 02/17/17 20:40 Urine Clean Catch Urine Culture - Final 50-100,000 CFU/ML MIXED GRAM POSITIVE... Complete Vitals/IOs Vital Signs Date Time Temp Pulse Resp B/P (MAP) Pulse Ox O2 Delivery O2 Flow Rate FiO2 02/26/17 06:00 97.8 88 15 127/66 (86) 99 Intake and Output 02/26/17 02/26/17 02/27/17 08:00 16:00 00:00 Intake Total 240 ml 240 ml Balance 240 ml 240 ml Assessment & Plan Problem List: (1) Unspecified psychosis ICD Codes: F29 - Unspecified psychosis not due to a substance or known physiological condition Assessment & Plan Pt improving. Continue current tx plan Estimated LOS: days Justification for Cont. Inpt. impairments in reality testing Christina Herrera MD Feb 26, 2017 12:51
[2017-02-26 17:40] VITALS: BP 123/63; PULSE 72; RESP 16; TEMP 97.5
[2017-02-26] MEDS: ATORVASTATIN 40 MG TAB PO SCH (21:44)
[2017-02-26] MEDS: INSULIN DETEMIR 100 UNITS/ML VIAL SQ SCH (21:45)
[2017-02-27 05:57] VITALS: BP 152/67; PULSE 91; RESP 16; TEMP 98.4; O2SAT 94
[2017-02-27] MEDS: INSULIN ASPART SUPPLEMENTAL SCALE SQ SCH ×4 (08:00→22:10)
[2017-02-27] MEDS: NICOTINE 21 MG/24 HR PATCH T-DERMAL SCH (08:28)
[2017-02-27] MEDS: GABAPENTIN 300 MG CAP PO SCH ×3 (09:20→18:01)
[2017-02-27] MEDS: PANTOPRAZOLE SOD 20 MG DELAYED RELEASE TAB PO SCH (09:20)
[2017-02-27] MEDS: risperiDONE 1 MG TAB PO SCH ×2 (09:20→21:26)
--- NOTE | 2017-02-27 12:48 | HHI.PR ---
Subjective Remarks Patient seen today around 11 AM. Says she is feeling all right. Denies any chest pain or shortness of breath. Objective Vital Signs Date Time Temp Pulse Resp B/P (MAP) Pulse Ox O2 Delivery O2 Flow Rate FiO2 02/27/17 05:57 98.4 91 16 152/67 (95) 94 02/26/17 17:40 97.5 72 16 123/63 (83) I/O 02/26/17 02/26/17 02/26/17 02/27/17 02/27/17 02/27/17 07:00 15:00 23:00 07:00 15:00 23:00 Intake Total 480 ml 510 ml 240 ml Balance 480 ml 510 ml 240 ml Intake Oral 480 ml 510 ml 240 ml # Voids 1 2 1 Objective Remarks GENERAL: Patient sitting up in chair. Appears comfortable. SKIN: Warm and dry. HEAD: Normocephalic. EYES: No scleral icterus. No injection or drainage. NECK: Supple, trachea midline. No JVD. CARDIOVASCULAR: Regular rate and rhythm without murmurs, gallops, or rubs. RESPIRATORY: Breath sounds equal bilaterally. No accessory muscle use. GASTROINTESTINAL: Abdomen soft, non-tender, nondistended. MUSCULOSKELETAL: No cyanosis, or edema. BACK: Nontender without obvious deformity. No CVA tenderness. A/P Assessment and Plan //questionable emesis vs acid reflux- -improved on PPI. Continue //Diabetes: A1c is 11.1. blood sugar levels not optimally controlled- stopped glyburide ( home meds) and started on levemir; 10 units subq qhs- - continue accu-check with SSI . will follow the trend adjust the regimen as needed. consult electrical panel builder. = 02/27. Glucose in the 290s this afternoon. 190s this morning. Improved from 300 yesterday however. We'll increase Levemir from 10->12u. //abnormal UA- asymptomatic and UC with mixed bacteria- no need for abx. Hypertension. Does not appear that she was on any antihypertensives at home. = Blood pressure variable, but overall acceptable. Continue current regimen. //Hyperlipidemia: Continue atorvastatin //Patient was on multiple antidepressants and anxiolytics. Will defer to psych. Discharge Planning As per psychiatry Patient will need insulin at discharge. Appreciate case management assistance. Travis Nuñez MD Feb 27, 2017 12:48
--- NOTE | 2017-02-27 14:47 | HHI.PYPN ---
Subjective Chief Complaint: psychosis Remarks Patient was seen today for psychiatric reevaluation, patient is calm, cooperative, very pleasant, she is smiling stating that she is happy to be here , but she is ready to go back home. She reports good mood, she says that she is having a good time here in the unit, she has made friends, she has been sleeping okay, eating with good appetite, compliant with her medications, l no significant side effects. She is more organized, logical, she doesn't spontaneously talk about her delusional thoughts. She is oriented 3. No agitation, no aggressive behavior reported Review of Systems Except as stated in HPI: all other systems reviewed are Neg Mental Status Examination Appearance: Appropriate Consciousness: Alert Orientation: x4 Motor Activity: Normal gait Speech: Unremarkable Language: Adequate Fund of Knowledge: Inadequate Attention and Concentration: Adequate Memory: Impaired Mood: Appropriate Affect: Appropriate Thought Process & Associations: Linear Thought Content: Bizarre thinking Hallucination Type: None Delusion Type: Paranoid Suicidal Ideation: No Suicidal Plan: No Suicidal Intention: No Homicidal Ideation: No Homicidal Plan: No Homicidal Intention: No Insight: Adequate Judgment: Adequate Results Labs Date/Time Source Procedure Growth Status 02/17/17 20:40 Urine Clean Catch Urine Culture - Final 50-100,000 CFU/ML MIXED GRAM POSITIVE... Complete Vitals/IOs Vital Signs Date Time Temp Pulse Resp B/P (MAP) Pulse Ox O2 Delivery O2 Flow Rate FiO2 02/27/17 05:57 98.4 91 16 152/67 (95) 94 Intake and Output 02/27/17 02/27/17 02/28/17 08:00 16:00 00:00 Intake Total 240 ml 360 ml Balance 240 ml 360 ml Assessment & Plan Problem List: (1) Unspecified psychosis ICD Codes: F29 - Unspecified psychosis not due to a substance or known physiological condition Assessment & Plan: Patient has been showing a very good response to psychotropics. She still delusional, but less fixated in her delusional thinking. Support, motivation psycho education provided. Assessment & Plan Estimated LOS: days Justification for Cont. Inpt. Patient has an elevated risk to decompensate at a lower level of care. Lonny Palencia MD Feb 27, 2017 14:47
[2017-02-27 18:40] VITALS: BP 134/64; PULSE 88; RESP 16; TEMP 98.1; O2SAT 94
[2017-02-27] MEDS ORDERED: REMOVE OLD NICODERM (NICOTINE) PATCH T-DERMAL SCH (21:00)
[2017-02-27] MEDS ORDERED: INSULIN DETEMIR 100 UNITS/ML VIAL SQ SCH (21:00)
[2017-02-27] MEDS: ATORVASTATIN 40 MG TAB PO SCH (21:26)
[2017-02-28 06:47] VITALS: BP 134/63; PULSE 75; RESP 17; TEMP 98
[2017-02-28] MEDS: INSULIN ASPART SUPPLEMENTAL SCALE SQ SCH ×3 (08:00→16:15)
[2017-02-28] MEDS: NICOTINE 21 MG/24 HR PATCH T-DERMAL SCH (09:00)
[2017-02-28] MEDS: PANTOPRAZOLE SOD 20 MG DELAYED RELEASE TAB PO SCH (10:18)
[2017-02-28] MEDS: GABAPENTIN 300 MG CAP PO SCH ×2 (10:19→13:28)
[2017-02-28] MEDS: risperiDONE 1 MG TAB PO SCH (10:19)
--- NOTE | 2017-02-28 10:55 | PD.TTN ---
Patient Problems 1. Discharge planning 2. Medication compliance 3. Knowledge deficit 4. Lack of coping skills Progress Toward Goals Provider Present: Dr. Martha Palencia Provider Input: Dr. Palencia's treatment team met to discuss patient's treatment team plan, discharge plan, and medication. Patient is doing better, ready to go home Nurse(s) Input: Patient's nurse Yodit reports patient is pleasant, cooperative, medication complaint, no behavioral problem on unit Psychiatric Counselors Present: JACOB Leigh ( ) Psych Therapist Input: Patient doing better. Patient presents pleasant, cooperative, affect appropriate. Patient is excited about being discharged. Patient denies suicidal and homicidal ideation, Patient does not present internally stimulated or with delusional content. Group Spec/RT/OT/WATTERS Present: Asher Meza OT Group Spec/RT/OT/WATTERS Input: Patient participates in selective groups Documentation Teaching Recipient: Meg Valles Feb 28, 2017 10:55
[2017-02-28] MEDS ORDERED: RISP1 PO (11:39)
[2017-02-28] MEDS ORDERED: GABA600T PO (11:39)
[2017-02-28] MEDS ORDERED: ASPI81CH CHEW (11:39)
[2017-02-28] MEDS ORDERED: LIPI40TA PO (11:39)
[2017-02-28 11:40] LABS: BICARBONATE 30.9 MEQ/L (21.0-32.0); POTASSIUM 4.6 MEQ/L (3.5-5.1)
--- NOTE | 2017-02-28 11:42 | HHI.DS ---
Psychiatry Discharge Summary Inpatient Psychiatric care?: Yes Advance Directive: No Reason Not Provided: Due to Patient Condition Mental Health AdvanceDirective: No Health Care Proxy: No Admission Admission Date Feb 18, 2017 at 09:55 Admission Diagnosis: (1) Unspecified psychosis ICD Code: F29 - Unspecified psychosis not due to a substance or known physiological condition Brief History The patient is a 81-year-old -[place] woman domiciled alone in [facility], without any reported psychiatric history, psychiatric hospitalization was suicidal attempts, she denies chronic medical illnesses, who was Martins acted and brought in for altered mental status. Patient was found wandering around the airport waiting for her son arriving from out of town for the past 2 days. Airport security check the airline and unable to confirm the story. Patient was cleared medically by ER Team. On psychiatric evaluation today patient is calm, partially cooperative, very disorganized. Patient says that the reason she is in the ER is she has a lump in her vagina, and as she reports this complaining she exposed herself trying to show me her intimate parts, but was redirected. Patient reports good mood, she says that she is very happy, she described herself as a happy person," nonproblematic, always happy". When I asked her what is she, she answers that she is in the airport waiting for her son. However, she is oriented in time, she knows that the support services specialist is Richard Roach, but cognitive assessment was not able to be completed, as the patient became agitated and he started demanding to be discharged. She denies suicidal and homicidal ideation, she denies visual and auditory hallucinations. She denies the use of alcohol and illicit drugs. Martins act documentation also states that the patient's apartment is inhabitable , in infrahuman conditions, with peaceable feces in the abdi and floor. Tobacco Use In Past 30 Days: No Tobacco Past 30 Days Alcohol Use: Never Hospital Course Patient was admitted in the psychiatric schafer due to psychosis, paranoia, delusions of parasitosis. Psychosocial psychiatric assessment were performed. Safety measures taken. Patient was started in Risperdal 0.25 mg twice a day, this medication was titrated up as needed. Patient was also started in individual and group therapies. Patient showed good response to this regimen. She showed a good response to Risperdal, no serious side effects. During the hospitalization drug abuse social worker was in contact with her son, who was in agreement with treatment. During the hospitalization patient was calm, cooperative, usually pleasant, no agitation or aggressive behavior reported. At the moment of discharge patient denies depression, denies anxiety, denies weston, denies psychosis per Results Blood Pressure 134 / 63 Vital Signs Date Time Temp Pulse Resp B/P (MAP) Pulse Ox O2 Delivery O2 Flow Rate FiO2 02/28/17 06:47 98.0 75 17 134/63 (86) 02/27/17 18:40 94 Laboratory Tests Test 02/28/17 10:12 Laboratory Results Test 02/19/17 08:39 Cholesterol Level 192 MG/DL (120-200) HDL Cholesterol 50.6 MG/DL (40.0-60.0) Hemoglobin A1c 11.1 % (4.3-6.0) LDL Cholesterol 105 MG/DL (0-99) Triglycerides Level 180 MG/DL (42-150) Summary of Major Lab Results Reviewed Summary of Procedures None Pending results at discharge: No Medications # of Antipsychotic meds at D/C: 1 Approp Antipsych med options 1 - Minimum of three failed multiple trials of monotherapy. 2 - Documented plan to taper to monotherapy due to previous use of multiple meds OR cross-taper in progress at D/C. 3 - Documentation of augmentation of Clozapine. 4 - Justification other than those listed in allowable values 1-3, document here : Discharge Discharge Date: Feb 28, 2017 Discharge Diagnosis: (1) Unspecified psychosis Diagnosis: Principal ICD Code: F29 - Unspecified psychosis not due to a substance or known physiological condition Pt Condition on Discharge: Stable Discharge Disposition: Discharge Home Discharge Instructions Diet Instructions: Heart Healthy Diet Activities you can perform: Weight Bearing as Leigha Discharge Time > 30 minutes Mental Status Examination Appearance: Appropriate Consciousness: Alert Orientation: x4 Motor Activity: Normal gait Speech: Unremarkable Language: Adequate Fund of Knowledge: Inadequate Attention and Concentration: Adequate Memory: Impaired Mood: Appropriate Affect: Appropriate Thought Process & Associations: Linear Thought Content: Bizarre thinking Hallucination Type: None Delusion Type: Paranoid Suicidal Ideation: No Suicidal Plan: No Suicidal Intention: No Homicidal Ideation: No Homicidal Plan: No Homicidal Intention: No Insight: Adequate Judgment: Adequate Discharge/Advance Care Plan Health Problems: (1) Unspecified psychosis Goals to promote your health * To prevent worsening of your condition and complications * To maintain your health at the optimal level Directions to meet your goals Take your medications as prescribed Follow your dietary instruction Follow activity as directed Keep your appointments as scheduled Take your immunizations and boosters as scheduled If your symptoms worsen call your PCP, if no PCP go to Urgent Care Center or Emergency Room For 28/11 questions related to your inpatient stay or results of tests pending at discharge, please contact Dr. Lonny Palencia at Smoking is Dangerous to Your Health. Avoid second hand smoking Lonny Palencia MD Feb 28, 2017 11:42
[2017-02-28] MEDS ORDERED: LANTINJ SQ (12:59)
--- NOTE | 2017-02-28 13:02 | HHI.PR ---
Subjective Remarks Patient reports she is feeling ok today. Excited to go home. We discussed insulin management for diabetes. She was previously on insulin and voiced understanding on how to use it. Objective Vitals Vital Signs Date Time Temp Pulse Resp B/P (MAP) Pulse Ox O2 Delivery O2 Flow Rate FiO2 02/28/17 06:47 98.0 75 17 134/63 (86) 02/27/17 18:40 98.1 88 16 134/64 (87) 94 I/O 02/27/17 02/27/17 02/27/17 02/28/17 02/28/17 02/28/17 07:00 15:00 23:00 07:00 15:00 23:00 Intake Total 600 ml 960 ml 720 ml Balance 600 ml 960 ml 720 ml Intake Oral 600 ml 960 ml 720 ml # Voids 1 1 2 Result Diagram: 02/28/17 1012 Objective Remarks GENERAL: No acute distress. CARDIOVASCULAR: Regular rate and rhythm. RESPIRATORY: No accessory muscle use. Clear to auscultation. Breath sounds equal bilaterally. NEUROLOGICAL: Awake and alert. Normal speech. PSYCHIATRIC: Appropriate mood and affect; insight and judgment normal. A/P Assessment and Plan 81 Y/O female with: Diabetes: A1c is 11.1. blood sugar levels not optimally controlled- stopped glyburide ( home meds) and started on levemir; 12 units subq qhs- Patient seen by unitizer. - Continue long acting insulin at home. Advised patient to follow up with PCP for further titration as indicated. Abnormal UA- asymptomatic and UC with mixed bacteria- no need for abx. Hypertension. Does not appear that she was on any antihypertensives at home. -Blood pressure variable, but overall acceptable. - Outpatient follow up advised. Hyperlipidemia: Continue atorvastatin Psych issues per psychiatry. Hospitalist clear for discharge. Can Crystal MD Feb 28, 2017 13:02
== END 2017-02-28 16:05 | disposition home or self-care (01) | DRG 885 ==
LOC: NEPE 20:04 → NEDA 02-18 09:55 → H250 02-18 13:05
PROVIDERS: ADMIT Psychiatry & Neurology Psychiatry; ATTEND Psychiatry & Neurology Psychiatry
DX: F29 Unspecified psychosis not due to a substance or known physiological condition (principal); E11.9 Type 2 diabetes mellitus without complications; F32.9 Major depressive disorder, single episode, unspecified; J45.909 Unspecified asthma, uncomplicated; F41.9 Anxiety disorder, unspecified; K21.9 Gastro-esophageal reflux disease without esophagitis; I10 Essential (primary) hypertension; E78.5 Hyperlipidemia, unspecified; Z86.73 Personal history of transient ischemic attack (TIA), and cerebral infarction without residual deficits; Z79.84 Long term (current) use of oral hypoglycemic drugs
CPT/HCPCS: 80048; 80053; 80061; 81001; 82948; 83036; 85025; 87086; J1815

== ENCOUNTER → 2017-07-19 | Outpatient (CLI) | payer MEDICARE, OTHER ==
[~2017-07-19] MED LIST changes: +ASPI-516 CHEW; -ASPI81CH CHEW; -BACT800T5 PO; -EPIN1INJ21 IV PUSH; -EPIN1INJ21 SQ; -GLYB5TAB3 PO; -HYDR-3133 PO; +LANTINJ SQ; -MECL-62 PO; -MUPI2OIN TOPICAL; -PERC5TAB12 PO; -PROT40TA PO; +RISP1 PO; -SERT25TA83 PO; -SOLU250I IV PUSH; -ZOFR4TAB3 SL
[2017-07-19 11:18] LABS: AUTOMATED NEUTROPHIL # 1.9 TH/MM3 (1.8-7.7); BASOPHIL % 0.9 % (0.0-2.0); EOSINOPHIL # 0.1 TH/MM3 (0-0.4); EOSINOPHIL % 2.4 % (0.0-4.0); HEMATOCRIT 38.2 % (35.0-46.0); HEMOGLOBIN 12.3 GM/DL (11.6-15.3); LYMPH % 40.2 % (9.0-44.0); LYMPHOCYTE # 1.6 TH/MM3 (1.0-4.8); MEAN CELL VOLUME 87.2 FL (80.0-100.0); MEAN CORPUSCULAR HGB CONC 32.1 % (32.0-36.0); MEAN PLATELET VOLUME 8.2 FL (7.0-11.0); MONO % 6.7 % (0.0-8.0); MONOCYTE # 0.3 TH/MM3 (0-0.9); NEUT % 49.8 % (16.0-70.0); PLATELET COUNT 194 TH/MM3 (150-450); RED BLOOD COUNT 4.37 MIL/MM3 (4.00-5.30); RED CELL DISTRIBUTION WIDTH 13.7 % (11.6-17.2); WHITE BLOOD COUNT 3.9 TH/MM3 (4.0-11.0)
[2017-07-19 11:28] LABS: BACTERIA, URINE RARE /hpf; BILIRUBIN, URINE NEG (NEG); BLOOD, URINE NEG (NEG); GLUCOSE,URINE 300 mg/dL (NEG); KETONE, URINE NEG (NEG); NITRITE,URINE NEG (NEG); SQUAMOUS EPITHELIAL CELL URINE <1 /hpf (0-5); URINE COLOR YELLOW (YELLW/STRAW); URINE LEUKOCYTE ESTERASE SMALL (NEG)
[2017-07-19 11:31] LABS: ALKALINE PHOSPHATASE 82 U/L (45-117); HDL CHOLESTEROL 95.8 MG/DL (40.0-60.0); TOTAL BILIRUBIN ADULT 0.4 MG/DL (0.2-1.0); TOTAL PROTEIN 7.2 GM/DL (6.4-8.2)
[2017-07-19 11:33] LABS: ALBUMIN 3.4 GM/DL (3.4-5.0); ALT (GPT) 23 U/L (10-53); AST (GOT) 22 U/L (15-37); BICARBONATE 31.9 MEQ/L (21.0-32.0); BLOOD UREA NITROGEN 15 MG/DL (7-18); CALCIUM 8.6 MG/DL (8.5-10.1); CHLORIDE 105 MEQ/L (98-107); CHOLESTEROL 191 MG/DL (120-200); CHOLESTEROL/ HDL RATIO 1.99 RATIO; CREATININE 0.75 MG/DL (0.50-1.00); GLOMERULAR FILTRATION RATE 90 ML/MIN (>89); GLUCOSE,FASTING 200 MG/DL (74-99); LDL CHOLESTEROL 81 MG/DL (0-99); SODIUM (NA) 141 MEQ/L (136-145); TRIGLYCERIDES 70 MG/DL (42-150)
[2017-07-19 16:32] LABS: HEMOGLOBIN A1C 10.6 % (4.3-6.0)
== END ==
LOC: CLAB 09:50
PROVIDERS: ATTEND Internal Medicine
DX: E78.5 Hyperlipidemia, unspecified (principal); E11.9 Type 2 diabetes mellitus without complications
CPT/HCPCS: 36415; 80053; 80061; 81001; 82043; 83036; 84439; 84443; 85025